=== PATIENT | male | born 1960 | race Caucasian/White ===

== ENCOUNTER → 2016-05-26 | Outpatient (CLI) | payer MEDICAID ==
[~2016-05-26] MED LIST: ALBUTEROL-200 PUFFS/ IH; AMOXICOT500 M1 PO; ASPIRIN 81MG TA81 MG PO; AZELASTINE137 MCG/SP; AZITHROMYCIN250 MG PO; CIPROFLOXACIN500 MG PO; EFFIENT10 M2 PO; FLONASE 50 MCG16 GM; HCTZ/LISINOPRIL1 TA3 PO; LIPITOR40 MG PO; LORTAB 10/3251 TAB PO; MEDROL 4MG. DOSE4 MG PO; MUCINEX1200 MG PO; NORCO 325 MG-101 TAB PO; NORFLEX100 MG PO; OMEPRAZOLE40 MG PO; PREDNISONE 20MG20 MG PO; TESSALON PERLE100 MG PO; XARELTO15 MG PO; ZYRTEC10 M3 PO; [UNRECOGNIZED DRUG - REMARK] PO
== END ==
LOC: RT 08:10
DX: R53.83 Other fatigue (principal); R53.1 Weakness; I25.10 Atherosclerotic heart disease of native coronary artery without angina pectoris; R00.1 Bradycardia, unspecified; G47.33 Obstructive sleep apnea (adult) (pediatric); R94.31 Abnormal electrocardiogram [ECG] [EKG]

== ENCOUNTER → 2016-10-14 | Outpatient (CLI) | payer MEDICAID ==
[2016-10-14 10:16] LABS: BILIRUBIN, INDIRECT 0.46 mg/dL (0-0.9)
== END ==
LOC: LAB 07:16
PROVIDERS: Internal Medicine
DX: I10 Essential (primary) hypertension (principal); E78.5 Hyperlipidemia, unspecified; G47.33 Obstructive sleep apnea (adult) (pediatric)

== ENCOUNTER 2017-03-01 08:42 | Emergency (ER) | payer MEDICAID ==
[~2017-03-01] VITALS: Ht 167.6 cm; Wt 65.8 kg
[2017-03-01 08:53] VITALS: BP 136/94
[2017-03-01] MEDS ORDERED: AVPAK AZITHROM250 MG PO (08:58)
--- NOTE | 2017-03-01 08:59 | Emergency Room Report ---
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 Y Clinical Suspician of Infection? Y Mental Status: 1 - Regular (Normal Baseline) Sepsis Risk:Low Sepsis Risk Have you (or family members/close friends) recently traveled outside the [place]? N If Yes, where/when: Have you had exposure to infectious disease within the past month? TB? Other? Specify: Patient reports fever, loose stools that are nonbloody, dry cough since yesterday. No myalgias or vomiting. Taking PO well. No chest pain or SOB. Has hx tobacco use and CABG, is anticoagulated. No calf pain or claudication. ALLERGIES Coded Allergies: pseudoephedrine (IRRITABILITY 01/13/16) Home Medications Active Scripts Albuterol (Albuterol-Hfa Inhaler) 1-2 PUFFS IH Q6HP PRN bronchospasm #1 INH Prov: 01/13/16 Methylprednisolone (Medrol Dose James) 4 MG PO UD #1 JAMES Prov: 01/13/16 HYDROCODONE/ACETAMINOPHEN (Lortab 10-325 MG Tablet) 1 TAB PO Q4HP PRN pain #20 TAB Prov: 01/13/16 Reported Medications Omeprazole (Omeprazole 40MG) 40 MG PO DAILY Rivaroxaban (Xarelto) 15 MG PO BID Prasugrel HCl (Effient) 10 MG PO DAILY ASPIRIN (Aspirin) 81 MG PO DAILY Atorvastatin Calcium (Atorvastatin) 40 MG PO DAILY History Medical History General CAD? No Angina: No [place]: No Hypertension? No Hyperlipidemia? No CHF? No DVT? No PE? No COPD? No Asthma? No Anemia? No GERD? No Gastric ulcers? No GI Bleed? No Hernia? No Thyroid Problems? No Hypothyroidism? No CVA? No Seizures? No Diabetes? No Insulin Dependent: No Insulin Pump: No Home FSBS? No Renal Insuffiency? No End Stage Renal Disease? No UTI? No Stones? No BPH? No GB Disease: No Nephritic Syndrome? No Asplenia? No Hepatitis? No Sickle Cell Disease? No Arthritis? No Migraines? No Cataracts? No Glaucoma? No MRSA? No HIV? No TB? No Anxiety? No Depression? No Cancer? Yes Site: BLADDER CANCER More? Yes Additional hx: STENTS PLACED 12/26/15 Immunization Hx DT/Tetanus 5-10 Years Ago Flu Refused Pneumonia Refuses Surgical Hx Previous Surgery?Y VASECTOMY T& A BLADDER CANCER INDEX FINGER LEFT AMPUTA. Family History Family Hx CAD No Social History Smoking Hx Smoker: Current Every Day Smoker Tobacco: Yes Type Cigarettes Packs/day < 1 Pack Alcohol Alcohol: No Review of Systems All Other Systems Reviewed and Negative Constitutional see HPI Physical Exam Vital Signs Vital Signs Date Time Temp Pulse Resp B/P Pulse O2 O2 Flow FiO2 Ox Delivery Rate 03/01 0853 61 20 136/94 98 03/01 0848 98.4 61 20 98 General Appearance normal appearance (coughing but in NAD), WD/WN, no apparent distress Eye Exam - bilateral eye normal exam, bilateral eye PERRL, bilateral eye EOMI Neck normal inspection, non-tender, supple, full range of motion Respiratory Status Yes: trachea midline, chest symmetrical, non tender chest, non productive cough. No: respiratory distress, tender on palpation, use of accessory muscles, pain on inspiration, pain on expiration, productive cough. Lung Sounds bilateral: normal breath sounds, lungs clear (coughing). Cardiovascular normal exam, regular rate/rhythm, no peripheral edema, no gallop, no JVD, no murmur, no rub, normal peripheral pulses Gastrointestinal normal bowel sounds, normal exam, non tender, soft, no organomegaly, no pulsatile mass, no guarding, no rebound Extremities non-tender, normal range of motion, normal inspection, normal capillary refill, no calf tenderness, no pedal edema Strength 5 Upper Ext (L), 5 Upper Ext (R), 5 Lower Ext (L), 5 Lower Ext (R) Neurologic alert, normal exam, no motor/sensory deficits, oriented x 3 ( ambulatory; clear speech) Glascow Coma Scale Glascow Coma Scale Response Value EYE response: 4 Spontaneously 4 MOTOR response: 6 OBEYS 6 VERBAL response: 5 Oriented & Converses 5 Total 15 Skin intact, normal color (good turgor), warm/dry Medical Decision Making LABS/Meds/Orders Pt receiving controlled substance in ED? No Results/Orders Current Medication Orders Sig/Eliud Start time Last Medication Dose Route Stop Time Status Admin Acetaminophen 1,000 MG ONCE ONE 03/01 900 AC 03/01 PO 03/01 901 0856 Acetaminophen 0 .STK-MED ONE 03/01 856 DC PO Departure Departure Time of Disposition 855 Disposition DC Home or Self Care(routine) Clinical Impression Primary Impression: Cough Condition STABLE Referrals Chepe SKAGGS,Subhash Wagner Patient Instructions Cough Additional Instructions Zithromax, see Eugonda in two to three days to recheck lungs, stay fluid hydrated with Gatorade while you still have loose stools. You stated you have medication for nausea at home; take this as needed as originally prescribed. Discharge Counseling Counseled pt/family regarding diagnosis, medications/RX, home care, follow up needs Prescriptions Current Visit Scripts Azithromycin (Avpak Azithromycin) 250 MG PO DAILY #6 TAB one Zpack as directed for five days ED Critical Care Critical Care No at 0858
--- OUTSIDE RECORDS SUMMARY | 2017-03-06 01:46 | External Medical Summary Rpt | CCD ---
Author Author , RIO Organization RIO Address Unknown Phone [email or web address] Care Team Providers Care Dental Chairside Assistant Name Role Phone A Violet MOMIN MD PSC, Gilberto Unavailable Unavailable Violet MOMIN MD PSC ALFARIS MOH, ALFARIS Unavailable Unavailable MOH ALFARIS MOH, ALFARIS Unavailable Unavailable MOH BEINEKE VALENTE, BEINEKE Unavailable Unavailable VALENTE PK L, PK L Unavailable Unavailable ORO, ORO Unavailable Unavailable ORO ALL, ORO ALL Unavailable Unavailable KINGSLEY CATARINO, KINGSLEY CATARINO Unavailable Unavailable KINGSLEY CATARINO, KINGSLEY CATARINO Unavailable Unavailable [facility] Unavailable [facility]available [facility], [facility] Unavailable Unavailable [facility], [facility] JIE COOK, Unavailable Unavailable JIE COOK KAMARI MANAN, Unavailable Unavailable KAMARI MANAN FAUGHN COOK, FAUGHN Unavailable Unavailable COOK FIELD AMB, FIELD AMB Unavailable Unavailable FIELD AMB, FIELD AMB Unavailable Unavailable FRYMAN EUG, FRYMAN Unavailable Unavailable EUG BLAYNE VAN, BLAYNE Unavailable Unavailable VAN BLAYNE VAN, BLAYNE Unavailable Unavailable [facility] Unavailable Unavailable HOSPITAL, [facility], Unavailable Unavailable [facility] PERRYCASIMIRO MAGANA, VICKY MAGANA Unavailable Unavailable GARNETT TRA, GARNETT TRA Unavailable Unavailable [facility] KOTTER ALTON, KOTTER Unavailable Unavailable [facility], [facility] SHERI JR DWI, SHERI Unavailable Unavailable JR DWI SERRANO SVETLANA, SERRANO Unavailable Unavailable SVETLANA DARIA GRE, Unavailable Unavailable DARIA GRE DARIA GRE, Unavailable Unavailable DARIA GRE MONGIARDO FRA, Unavailable Unavailable MONGIARDO FRA MONGIARDO FRA, Unavailable Unavailable MONGIARDO FRA [facility]available [facility], [facility], Unavailable Unavailable [facility], Unavailable Unavailable [facility] FINESSE, FINESSE Unavailable Unavailable FINESSE TOD, FINESSE TOD Unavailable Unavailable ARUN ESME, ARUN ESME Unavailable Unavailable ARUN ESME, ARUN ESME Unavailable Unavailable SCIFRES, SCIFRES Unavailable Unavailable SCIFRES, SCIFRES Unavailable Unavailable MICHELLE, MICHELLE Unavailable Unavailable MICHELLE MAT, Unavailable Unavailable MICHELLE MAT ROSALINA ROMANO Unavailable Unavailable ROSALINA SHE, Unavailable Unavailable ROSALINA SHE STONE, STONE Unavailable Unavailable TAY CROSS Unavailable Unavailable TAY CROSS Unavailable Unavailable Purpose Continuity of Care Document - 08-04-2011 through 2016 Problems Code Diagnosis DOS Provider Status [id number] HYPERTENSIV 01-14-2017 SCIF[facility] E RETINOPATHY BILATERAL [id number] NONEXU 01-08-2017 [facility] AGE-REL MACULAR DEG LT EYE INTRMD DRY STG [id number] EXUDATIVE 01-08-2017 [facility] AGE-RELATED MAC DEG RT EYE INACTV CNV E785 HYPERLIPIDE 11-10-2016 [facility] KEVIN PHYSICIANS UNSPECIFIED GROUP G4733 OBSTRUCTIVE 11-10-2016 [place] [facility] APNEA ADULT INC PEDIATRIC I10 ESSENTIAL 11-10-2016 [place] [facility] PRIMARY [facility] HYPERTENSIO INC N I119 HYPERTENSIV 11-10-2016 [facility] E HEART PHYSICIANS DISEASE GROUP WITHOUT HEART FAILURE I2510 ASHD CHER-AE HEIGHTS 11-10-2016 [facility] 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 K219 GASTRO-ESOP 11-10-2016 [facility] H REFLUX PHYSICIANS DISEASE GROUP WITHOUT ESOPHAGITIS K449 DIAPHRAGMAT 11-10-2016 [facility] IC HERNIA PHYSICIANS W/O GROUP OBSTRUCTION OR GANGRENE Z955 PRESENCE OF 11-10-2016 [facility] CORONARY PHYSICIANS ANGIOPLASTY GROUP IMPLANT & GRAFT [id number] NONEXUD 10-09-2016 [facility] AGE-REL MAC DEGEN TRU INTERMED DRY STAGE H524 PRESBYOPIA 09-11-2016 SC[facility] R0602 SHORTNESS 07-31-2016 [facility] INC R079 CHEST PAIN 07-31-2016 [facility] R4702 DYSPHASIA 07-31-2016 [facility] Z720 TOBACCO USE 07-28-2016 [facility] R0681 APNEA NOT 07-22-2016 SP ELSEWHERE [facility] CLASSIFIED INC K635 POLYP OF 07-09-2016 [facility] K921 MELENA 07-09-2016 [facility] K625 HEMORRHAGE 06-24-2016 [facility] OF ANUS AND PHYSICIANS RECTUM GROUP C69941 PERSONAL 06-24-2016 [facility] HISTORY OF PHYSICIANS COLONIC GROUP POLYPS R001 BRADYCARDIA 06-12-2016 [facility] PHYSICIANS UNSPECIFIED GROUP J0100 ACUTE 05-26-2016 [facility] MAXILLARY PHYSICIANS SINUSITIS GROUP UNSPECIFIED R531 WEAKNESS 05-26-2016 [facility] INC R5383 OTHER 05-26-2016 [facility] FAT[facility]UE [facility] INC R9431 ABNORMAL 05-26-2016 [facility] ELECTROCARD [facility] IOGRAM INC R55 SYNCOPE AND 05-19-2016 [facility] COLLAPSE PHYSICIANS GROUP I208 OTHER FORMS 04-29-2016 [facility] OF ANGINA PHYSICIANS PECTORIS GROUP C68286 ASHD [place]IGHT[place] 04-29-2016 [facility] COR ART PHYSICIANS W/OTH FORMS GROUP ANGINA PECTORIS I209 ANGINA 04-24-2016 [facility]ICAL UNSPECIFIED IMAGING ASS I340 NONRHEUMATI 04-24-2016 [facility] INSUFFICIEN CY J209 ACUTE 01-28-2016 [facility] BRONCHITIS PHYSICIANS UNSPECIFIED GROUP J329 CHRONIC 01-18-2016 [facility] SINUSITIS PHYSICIANS UNSPECIFIED GROUP J40 BRONCHITIS 01-13-2016 [facility], SPECIFIED PLLC ACUTE OR CHRONIC K828 OTHER 01-13-2016 [place] SPECIFIED MEDICAL DISEASES OF IMAGING ASS GALLBLADDER K922 GASTROINTES 01-13-2016 [facility] KEARNSAL PHYSICIANS, HEMORRHAGE PLLC UNSPECIFIED R05 COUGH 01-13-2016 [facility] Z8551 PERSONAL 01-13-2016 [facility] HISTORY [facility]ICAL MALIGNANT IMAGING ASS NEOPLASM OF BLADDER M32159 PAIN IN 01-02-2016 [facility] RIGHT ARM MEDICAL IM[facility]ING ASS B88326 [facility] CHER-AE HEIGHTS 12-24-2015 SP COR ARTREY [facility] W/UNS INC ANGINA PECTORIS R9439 ABNORMAL 12-24-2015 SP RESULT OTH [facility] CARDIOVASCU INC LR FUNCTION STUDY H6690 OTITIS 11-13-2015 [facility] MEDIA PHYSICIANS UNSPECIFIED GROUP UNSPECIFIED EAR G4730 SLEEP APNEA 09-18-2015 [facility] PHYSICIANS UNSPECIFIED GROUP J3489 OTHER 09-18-2015 [facility] SPECIFIED PHYSICIANS DISORDERS GROUP NOSE AND NASAL SINUSES M5126 OTH 05-09-2015 [facility] [place] [facility] RAL DISC [facility] PLC DISPLACEMEN T LUMBAR RGN M549 DORSALGIA 04-23-2015 [facility] UNSPECIFIED [facility] INC Z69282 PAIN IN LEG 04-23-2015 [facility] UNSPECIFIED INC V19239 PAIN IN 04-16-2015 SP LEFT [facility] M545 LOW BACK 04-01-2015 [facility] [place] PAIN [facility] S PLC [id number] OTH FX 1ST 04-01-2015 [facility] [place] LUMB VERT [facility] SUBSEQUENT S PLC ENC FX RTN HLNG C679 MALIGNANT 03-22-2015 SP NEOPLASM OF [facility] BLADDER INC UNSPECIFIED E041 NONTOXIC 03-22-2015 SP SINGLE [facility] THYROID INC NODULE A80812 PAIN IN 03-21-2015 [facility] RIGHT LEG [facility]ICAL [facility] R600 LOCALIZED 03-21-2015 [place] [facility] EDEMA [facility] 8054 CLOS FX 01-17-2015 [facility] [place] LUMB [facility] VERTEBRA S PLC W/O MENTION SP CORD INJURY 9895 TOXIC 12-13-2014 [facility] EFFECT OF PHYSICIANS, VENOM [facility] MONET[facility] V1582 PERS HX 12-13-2014 SP TOBACCO USE [facility] PRESENTING INC [facility] 67328 BORDERLINE 12-06-2014 [facility] GLAUC OPEN GRE ANGLE BL FINDINGS LOW RSK 81957 OTHER 12-06-2014 [facility] VISUAL GRE DISTORTIONS AND ENTOPTIC PHENOMENA 03811 OTHER 12-06-2014 [facility] VITREOUS GRE OPACITIES 4019 UNSPECIFIED 11-20-2014 SP ESSENTIAL [facility] HYPERTENSIO INC N 29831 OTHER 11-20-2014 SP SPECIFIED [facility] CARDIAC INC DYSRHYTHMIA S 78750 CHEST PAIN 11-20-2014 [facility] UNSPECIFIED [facility] INC 7242 LUMBAGO 11-12-2014 [facility] [place] [facility] 77202 HEMATURIA 10-11-2014 [facility] 7245 UNSPECIFIED 10-09-2014 [facility] BACK[facility]HE [facility] 0093 DIARRHEA OF 09-24-2014 [facility] PRESUMED PHYSICIANS INFECTIOUS GROUP ORIGIN 2113 BENIGN 09-24-2014 [facility] NEOPLASM OF PHYSICIANS COLON GROUP 5781 BLOOD IN 09-24-2014 [facility] STOOL PHYSICIANS GROUP 05412 ABDOMINAL 09-24-2014 [facility] PAIN OTHER PHYSICIANS SPECIFIED GROUP SITE 45764 DIVERTICULO 09-14-2014 [facility] SIS OF PHYSICIANS COLON GROUP 69899 DIARRHEA 09-14-2014 [facility] PHYSICIANS GROUP 68138 ABDOMINAL 09-14-2014 [facility] PAIN, PHYSICIANS UNSPECIFIED GROUP SITE 4619 ACUTE 08-27-2014 [facility] SINUSITIS, PHYSICIANS UNSPECIFIED GROUP 412 OLD 07-19-2014 [facility] MYOCARDIAL [facility] INFARCTION CONSULTANTS O 00418 ATRIAL 07-19-2014 [facility] FIBRILLATIO LAR N CONSULTANTS O 02799 NONSPECIFIC 07-19-2014 [facility] ABNORMAL LAR ELECTROCARD CONSULTANTS IOGRAM O 5693 HEMORRHAGE 07-03-2014 Gilberto MOMIN OF RECTUM PSC AND ANUS 02441 UNS SHIGA 06-28-2014 SP TOXIN-PRODU [facility] CING E COLI INC INF CLASS ELSW 47352 OBSTRUCTIVE 03-05-2014 [place] [facility] APNEA INC 460 ACUTE 01-06-2014 BLAYNE VAN NASOPHARYNG ITIS 4739 UNSPECIFIED 01-05-2014 SP SINUSITIS [facility] INC 26643 ACOUSTIC 12-01-2013 MONGIARDO TRAUMA TO FRA EAR 55698 UNSPECIFIED 12-01-2013 [facility] TINNITUS FRA 3899 UNSPECIFIED 12-01-2013 [facility] HEARING FRA LOSS 7336 TIETZES 11-09-2013 [facility] DISEASE 30688 PAINFUL 11-06-2013 [facility] MOH RESPIRATION 27024 ESOPHAGEAL 11-02-2013 [facility] REFLUX 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 4659 ACUTE URIS 10-13-2013 ARUN ESME OF UNSPECIFIED SITE 496 CHRONIC 10-13-2013 ARUN ESME AIRWAY OBSTRUCTION NEC 3670 HYPERMETROP 10-07-2013 [facility] IA GRE 7840 HEADACHE 07-05-2013 [facility] 32507 OTHER 07-03-2013 [facility] AM[facility] MALAISE AND FATIGUE 4660 ACUTE 06-03-2013 [facility] TORIBIO BRONCHITIS Medications Na ND Rx Da Fi Fi Am Da Di Ph RX Ph St me C No te ll ll ou ys ag ar # ys at rm s nt no ma ic us Or Da si cy ia de te s n re d CL 13 08 09 30 30 00 CL Ac OP 66 -2 -2 .0 00 IN ti ID 80 2- 2- 00 00 IC ve OG 14 20 20 43 RE 10 17 17 18 PH L 5 64 AR 75 MA CY MG TA BL ET LO 00 08 09 30 30 00 CL Ac SA 78 -2 -2 .0 00 IN ti RT 15 2- 2- 00 00 IC ve AN 20 20 20 43 -H 69 [address] 2 57 AR Z MA 50 CY -1 2. 5 MG TA B OM 00 08 09 30 30 00 CL Ac EP 78 -2 -2 .0 00 IN ti RA 12 2- 2- 00 00 IC ve ZO 23 20 20 43 LE 41 17 17 18 PH [address] MA CY 40 MG CA PS UL E SI 16 08 09 30 30 00 CL Ac MV 72 -2 -2 .0 00 IN ti 90 2- 2- 00 00 IC ve TA 00 20 20 43 TI 41 17 17 44 PH N 5 21 AR 10 MA CY MG TA BL ET CL 13 07 08 30 30 00 CL Ac OP 66 -1 -1 .0 00 IN ti ID 80 9- 1- 00 00 IC ve OG 14 20 20 40 RE 10 17 17 87 PH L 5 39 AR 75 MA CY MG TA BL ET OM 60 07 08 30 30 00 CL Ac EP 50 -1 -1 .0 00 IN ti RA 50 9- 1- 00 00 IC ve ZO 14 20 20 43 LE 60 17 17 18 PH [address] MA CY 40 MG CA PS UL E SI 16 07 08 30 30 00 CL Ac MV 72 -1 -1 .0 00 IN ti 90 9- - 00 IC ve TA 00 20 20 43 TI 41 17 17 44 PH N 5 21 AR 10 MA CY MG TA BL ET LO 00 07 08 30 30 00 CL Ac SA 78 -1 -1 .0 00 IN ti RT 15 9- 00 IC ve AN 20 20 20 43 -H 69 [address] 2 57 AR Z MA 50 CY -1 2. 5 MG TA B SI 16 06 07 30 30 00 CL Ac MV 72 -2 -1 .0 00 IN ti 90 0- 4- 00 00 IC ve TA 00 20 20 43 TI 41 17 17 44 PH N 5 21 AR 10 MA CY MG TA BL ET CL 13 06 07 30 30 00 CL Ac OP 66 -2 -1 .0 00 IN ti ID 80 0- 4- 00 00 IC ve OG 14 20 20 40 RE 10 17 17 87 PH L 5 39 AR 75 MA CY MG TA BL ET OM 55 06 07 30 30 00 CL Ac EP 11 -2 -1 .0 00 IN ti RA 10 0- 4- 00 00 IC ve ZO 64 20 20 43 LE 50 17 17 18 PH [address] MA CY 40 MG CA PS UL E LO 00 06 07 30 30 00 CL Ac SA 78 -2 -1 .0 00 IN ti RT 15 0- 4- 00 00 IC ve AN 20 20 20 43 -H 69 [address] 2 57 AR Z MA 50 CY -1 2. 5 MG TA B FL 50 06 07 16 30 00 CL Ac UT 38 -2 -1 .0 00 IN ti IC 30 1- 4- 00 00 IC ve 70 20 20 43 ON 01 17 17 45 PH E 6 97 AR ID MA OP CY 50 MC G SP RA Y CL 13 05 06 30 30 00 CL Ac OP 66 -1 -2 .0 00 IN ti ID 80 8- 3- 00 00 IC ve OG 14 20 20 40 RE 10 17 17 87 PH L 5 39 AR 75 MA CY MG TA BL ET PA 65 05 06 30 30 00 CL Ac NT 86 -1 -2 .0 00 IN ti OP 20 8- 3- 00 00 IC ve RA 56 20 20 41 ZO 09 17 17 97 PH LE 0 12 AR MA SO CY D DR 40 MG TA B OM 60 05 06 30 30 00 CL Ac EP 50 -2 -1 .0 00 IN ti RA 50 3- 6- 00 00 IC ve ZO 14 20 20 43 LE 60 17 17 18 PH [address] MA CY 40 MG CA PS UL E ON 67 05 06 10 5 00 CL Ac DA 87 -2 -1 .0 00 IN ti NS 70 3- 6- 00 00 IC ve ET 17 20 20 43 RO 03 17 17 18 PH N 0 65 AR HC MA L CY 8 MG TA BL ET LO 00 05 06 30 30 00 CL Ac SA 78 -2 -1 .0 00 IN ti RT 15 3- 6- 00 00 IC ve AN 20 20 20 43 -H 69 [address] 2 62 AR Z MA 50 CY -1 2. 5 MG TA B CL 13 04 05 30 30 00 CL Ac OP 66 -1 -1 .0 00 IN ti ID 80 9- 2- 00 00 IC ve OG 14 20 20 40 RE 10 17 17 87 PH L 5 39 AR 75 MA CY MG TA BL ET PA 65 04 05 30 30 00 CL Ac NT 16 -1 -1 .0 00 IN ti OP 20 9- 2- 00 00 IC ve RA 63 20 20 41 ZO 70 17 17 97 PH LE 9 12 AR MA SO CY D DR 40 MG TA B CL 13 03 04 30 30 00 CL Ac OP 66 -2 -1 .0 00 IN ti ID 80 1- 4- 00 00 IC ve OG 14 20 20 40 RE 10 17 17 87 PH L 5 39 AR 75 MA CY MG TA BL ET PA 65 03 04 30 30 00 CL Ac NT 16 -2 -1 .0 00 IN ti OP 20 1- 4- 00 00 IC ve RA 63 20 20 41 ZO 70 17 17 97 PH LE 9 12 AR MA SO CY D DR 40 MG TA B PA 66 02 03 30 30 00 CL Ac NT 99 -1 -1 .0 00 IN ti OP 30 4- 0- 00 00 IC ve RA 06 20 20 41 ZO 88 17 17 97 PH LE 5 12 AR MA SO CY D DR 40 MG TA B CL 13 02 03 30 30 00 CL Ac OP 66 -1 -1 .0 00 IN ti ID 80 4- 0- 00 00 IC ve OG 14 20 20 40 RE 10 17 17 87 PH L 5 39 AR 75 MA CY MG TA BL ET GA 43 02 02 40 1 00 CL Ac 38 -0 -2 00 00 IN ti LY 60 1- 4- .0 00 IC ve TE 09 20 20 00 42 -G 01 17 17 09 PH 9 15 AR SO MA VICTORINO CY TI ON PA 65 01 02 30 30 00 CL Ac NT 16 -2 -1 .0 00 IN ti OP 20 0- 7- 00 00 IC ve RA 63 20 20 41 ZO 70 17 17 97 PH LE 9 12 AR MA SO CY D DR 40 MG TA B OM 60 01 02 30 30 00 CL Ac EP 50 -1 -1 .0 00 IN ti RA 50 7- 0- 00 00 IC ve ZO 14 20 20 41 LE 60 17 17 57 PH [address] MA CY 40 MG CA PS UL E CL 13 01 02 30 30 00 CL Ac OP 66 -1 -1 .0 00 IN ti ID 80 7- 0- 00 00 IC ve OG 14 20 20 40 RE 10 17 17 87 PH L 5 39 AR 75 MA CY MG TA BL ET AT 60 01 02 30 30 00 CL Ac OR 50 -1 -1 .0 00 IN ti VA 52 7- 0- [address] 58 20 20 40 AT 00 17 17 87 PH IN 9 40 AR MA 40 CY MG TA BL ET CE 67 01 01 20 10 00 CL Ac FU 87 -0 -2 .0 00 IN ti RO 70 3- 7- 00 00 IC ve XI 21 20 20 41 ME 62 17 17 79 PH 0 40 AR AX MA ET CY IL 50 0 MG TA B ID 00 01 01 10 5 00 CL Ac ED 05 -0 -2 .0 00 IN ti NI 40 3- 7- 00 00 IC ve SO 01 20 20 41 NE 82 17 17 79 PH 9 41 AR 20 MA CY MG TA BL ET AT 60 12 01 30 30 00 CL Ac OR 50 -2 -2 .0 00 IN ti VA 52 0- 0- [address] 58 20 20 40 AT 00 16 17 87 PH IN 8 40 AR MA 40 CY MG TA BL ET CL 13 12 01 30 30 00 CL Ac OP 66 -2 -2 .0 00 IN ti ID 80 0- 0- 00 00 IC ve OG 14 20 20 40 RE 10 16 17 87 PH L 5 39 AR 75 MA CY MG TA BL ET OM 60 12 01 30 30 00 CL Ac EP 50 -2 -2 .0 00 IN ti RA 50 0- 0- 00 00 IC ve ZO 14 20 20 41 LE 60 16 17 57 PH [address] MA CY 40 MG CA PS UL E AM 57 12 01 20 10 00 CL Ac OX 23 -0 -1 .0 00 IN ti IC 70 8- 3- 00 00 IC ve IL 03 20 20 41 LI 10 16 17 57 PH N 5 36 AR 50 MA 0 CY MG CA PS UL E FL 00 12 01 16 30 00 CL Ac UT 05 -0 -1 .0 00 IN ti IC 43 8- 3- 00 00 IC ve 27 20 20 41 ON 09 16 17 57 PH E 9 37 AR ID MA OP CY 50 MC G SP RA Y NI 43 12 01 25 25 00 CL Ac TR 59 -0 -1 .0 00 IN ti OG 80 8- 3- 00 00 IC ve LY 43 20 20 41 CE 61 16 17 42 PH RI 1 54 AR N MA 0. CY 4 MG TA BL ET SL Results Labs Lab Lab Date Result Refere Interp Status Commen Order Detail nces retati t Range on CKMB (08-04-2011 11:40) CKMB 0.2 0.0-5.0 Normal complet 012 NG/ML ed 11:40 CPK (08-04-2011 11:40) CPK 74 U/L 26.0-17 Normal complet 012 4.0 ed 11:40 CMP (08-04-2011 11:40) LIPEMIA - Normal complet 012 ed 11:40 ICT - Normal complet 012 ed 11:40 HEM - Normal complet 012 ed 11:40 BUNCR 17.5 6.0-25. Normal complet 012 RATIO 0 ed 11:40 AG 1.7 0.8-2.0 Normal complet 012 RATIO ed 11:40 TBIL 08-03-2 0.4 0.3-1.2 Normal complet 012 MG/DL ed 11:40 AST 08-03-2 24.0 8.0-33. Normal complet 012 U/L 0 ed 11:40 ALT 08-03-2 14.0 4.0-36. Normal complet 012 U/L 0 ed 11:40 ALP 08-03-2 92.0 25.0-10 Normal complet 012 U/L 0.0 ed 11:40 ALB 08-03-2 4.6 3.4-4.8 Normal complet 012 G/DL ed 11:40 TP 08-03-2 7.30 6.40-8. Normal complet 012 G/DL 30 ed 11:40 CA 08-03-2 9.8 8.5-10. Normal complet 012 MG/DL 5 ed 11:40 GFR 08-03-2 108 >59 Normal complet 012 ML/MIN ed 11:40 CR 08-03-2 0.8 0.4-1.2 Normal complet 012 MG/DL 0 ed 11:40 BUN 08-03-2 14.0 6.0-20. Normal complet 012 MG/DL 0 ed 11:40 GL 08-03-2 96.0 74.0-10 Normal complet 012 MG/DL 6.0 ed 11:40 CO2 08-03-2 30.0 20.0-30 Normal complet 012 mEq/L .0 ed 11:40 CL 08-03-2 107.0 98.0-10 Normal complet 012 MMOL/L 7.0 ed 11:40 K 08-03-2 4.0 3.4-5.1 Normal complet 012 mEq/L ed 11:40 NA 08-03-2 144.0 136.0-1 Normal complet 012 MMOL/L 45.0 ed 11:40 Procedures Procedure DOS Code Location Performer Comment FUNDUS 41270 [facility] 7 HY W/INTERPR ETATION & REPORT ECG 49508 [facility] ROUTINE 7 [facility] ECG INC INC W/LEAST 12 LDS TRCG ONLY W/O I&R ECG 38567 [facility] ROUTINE [facility] ECG INC INC W/LEAST 12 LDS TRCG ONLY W/O I&R FLUORESCE 38195 [facility] IN ANGRPH 7 W/MULTIFR INDIRA I&R UNI/BI FUNDUS 87702 [facility] PHOTOGRAP 7 HY W/INTERPR ETATION & REPORT OPHTH 65474 [facility] MEDICAL 7 XM&EVAL COMPRE NEW PT 1/> VST RADEX 50916 [facility] ESOPHAGUS 7 MEDICAL IMAGING ASS ECG 04404 [facility] ROUTINE 7 [facility] ECG INC INC W/LEAST 12 LDS TRCG ONLY W/O I&R ECG 80933 [facility] MICHELLE ROUTINE 7 PHYSICIAN ECG S GROUP W/LEAST 12 LDS I&R ONLY POLYSOM 41653 [facility] 6/>YRS 7 [facility] SLEEP /> INC INC ADDL AYO ATTND ANES 06617 [facility] 7 ANESTH INTESTINE OF THE BLUE ENDOSCOPY DISTAL DUODENUM ECG 19022 [facility] ROUTINE 7 PHYSICIAN ECG S GROUP W/LEAST 12 LDS I&R ONLY CV STRS 89063 [facility] TST 7 [facility] XERS&/OR INC INC RX CONT ECG TRCG ONLY ECG 29396 [facility] ROUTINE 6 [facility] ECG INC INC W/LEAST 12 LDS TRCG ONLY W/O I&R COLLECTIO 16289 [facility] N VENOUS 6 [facility] [place]LOOD [place] [address] [facility] FREE 6 [facility] [place] [address] [facility] THYROID 6 [facility] STIMULATI INC INC NG HORMONE TSH CATH PLMT 53964 [facility] MIC[facility] L HRT & 6 PHYSICIAN ARTS S GROUP W/NJX & ANGIO IMG S&I BASIC 28450 [facility] METABOLIC 6 [facility] PANEL INC INC CALCIUM TOTAL RADIOLOGI 30609 [place] [facility] C EXAM 6 MEDICAL CHEST 2 IMAGING VIEWS ASS FRONTAL&L ATERAL ECHO 81993 [place] [facility] TTHRC R-T 6 MEDICAL [place] 2D SERV W/WOM-MOD FOUNDATIO E COMPL N SPEC&COLR D COLLECTIO 89475 SP [facility] VENOUS 6 [facility] BLOOD INC INC VENIPUNCT URE INJECTION J1100 [facility] FRYMAN 6 PHYSICIAN EUG DEXAMETHO S GROUP SONE SODIUM PHOSPHATE 1 MG THERAPEUT 26160 [facility] FR[facility]MAN IC 6 PHYSICIAN EUG PROPHYLAC S GROUP TIC/DX INJECTION SUBQ/IM THER 80565 [facility] PROPH/DX 6 [facility] NJX IV INC INC PUSH SINGLE/1S T SBST/[place] [address] BREANNA BENITES ABDOMEN & 6 MEDICAL MANAN PELVIS IMAGING W/O ASS CONTRAST MATERIAL THROMBOPL 92099 [facility] ASTIN 6 [facility] TIME INC INC PARTIAL PLASMA/WH OLE BLOOD BLOOD 22606 [facility] TYPING 6 [facility] SEROLOGIC INC INC RH (D) ANTIBODY 32388 [facility] SCREEN 6 [facility] RBC EACH INC INC SERUM TECHNIQUE BLOOD 19597 [facility] TYPING 6 [facility] SEROLOGIC INC INC ABO PROTHROMB 69142 [facility] IN TIME 6 [facility] INC INC URNLS DIP 11369 [facility] 6 [facility] STICK/TAB INC INC LET REAGENT AUTO MICROSCOP Y BLOOD 44476 [facility] OCCULT 6 [facility] PEROXIDAS INC INC E ACTV QUAL FECES 1-3 SPEC BLOOD 72987 [facility] COUNT 6 [facility] COMPLETE INC INC AUTO&AUTO DIFRNTL WBC LIPID 72938 [facility] PANEL 6 [facility] INC INC RADIOLOGI 37581 [facility] CAZAR[facility]I C EXAM 6 MEDICAL MANAN CHEST 2 IMAGING VIEWS ASS FRONTAL&L ATERAL PRESSURIZ 85805 [facility] ED/NONPRE 6 [facility] SSURIZED INC INC INHALATIO N TREATMENT CULTURE 24478 [facility] BACTERIAL 6 [facility] BLOOD INC INC AEROBIC W/ID ISOLATES COLLECTIO 29215 [facility] N VENOUS 6 [facility] BLOOD INC INC VENIPUNCT URE COMPREHEN 98618 [facility] SIVE 6 [facility] METABOLIC INC INC PANEL DUP-SCAN 29202 [place] [facility] ALL XTR VEINS 6 MEDICAL IMAGING UNILATERA ASS L/LIMITED STUDY PRQ 83884 [facility] TRLUML 6 PHYSICIAN MAT CORONARY S GROUP ANGIOPLAS TY ONE ART/BRANC H PRQ [address]153 [facility] TRLUML 6 PHYSICIAN MAT CORONARY S GROUP STENT W/ANGIO ONE ART/BRNCH BLOOD 60287 [facility] COUNT 6 [facility] COMPLETE INC INC AUTO&AUTO DIFRNTL WBC CATH PLMT 66313 [facility] L HRT & 6 [facility] ARTS INC INC W/NJX & ANGIO IMG S&I BASIC 38945 [facility] METABOLIC 6 [facility] PANEL INC INC CALCIUM TOTAL MYOCARDIA 10465 [facility] MICHELLE L SPECT 6 PHYSICIAN MAT MULTIPLE S GROUP STUDIES BLOOD 69857 [facility] COUNT 6 [facility] COMPLETE INC INC AUTO&AUTO DIFRNTL WBC LIPID 15288 [facility] PANEL 6 [facility] INC INC COMPREHEN 09509 [facility] SIVE 6 [facility] [place] [address] [facility] THYROID 6 [facility] STIMULATI [place] [address] [facility] THYROXINE 6 [facility] TOTAL INC INC ECG 03180 [facility] ROUTINE 6 [facility] ECG INC INC W/LEAST 12 LDS TRCG ONLY W/O I&R XTRNL ECG 23714 [facility] & 48 HR 5 [facility] RECORDING INC INC EXTERNAL 10919 [facility] ECG 5 [facility] SCANNING INC INC ANALYSIS REPORT XTRNL ECG 79252 SP [facility] JR 5 [facility] S RHYTHM P W/I&R UP TO 48 HRS ECG 08291 [facility] ROUTINE 5 [facility] ECG INC INC W/LEAST 12 LDS TRCG ONLY W/O I&R E-STIM G0283 [facility] 1/> AREAS 5 [facility] OTH THAN INC INC WND CARE PART TX PLAN APPL 82812 [facility] MODALITY 5 [facility] 1/> AREAS INC INC ULTRASOUN D EA 15 MIN MANUAL 55196 [facility] THERAPY 5 [facility] TQS 1/> INC INC REGIONS EACH 15 MINUTES THERAPEUT 79165 [facility] IC PX 1/> 5 [facility] AREAS INC INC EACH 15 MIN EXERCISES APPLICATI 44643 [facility] ON 5 [facility] MODALITY INC INC 1/> AREAS HOT/COLD PACKS APPLICATI 95800 [facility] ON 5 [facility] MODALITY INC INC 1/> AREAS HOT/COLD PACKS THERAPEUT 97647 [facility] IC PX 1/> 5 [facility] AREAS INC INC EACH 15 MIN EXERCISES E-STIM G0283 [facility] 1/> AREAS 5 [facility] OTH THAN INC INC WND CARE PART TX PLAN E-STIM G0283 [facility] 1/> AREAS 5 [facility] OTH THAN INC INC WND CARE PART TX PLAN THERAPEUT 65318 [facility] IC PX 1/> 5 [facility] AREAS INC INC EACH 15 MIN EXERCISES APPLICATI 61074 [facility] ON 5 [facility] MODALITY INC INC 1/> AREAS HOT/COLD PACKS MANUAL 19013 [facility] THERAPY 5 [facility] TQS 1/> INC INC REGIONS EACH 15 MINUTES MANUAL 53200 [facility] THERAPY 5 [facility] TQS 1/> INC INC REGIONS EACH 15 MINUTES APPLICATI 64297 [facility] MODALITY INC INC 1/> AREAS HOT/COLD PACKS E-STIM G0283 SP [facility] 1/> AREAS [facility] OTH THAN INC INC WND CARE PART TX PLAN E-STIM G0283 SP SP 1/> AREAS 5 [facility] OTH THAN INC INC WND CARE PART TX PLAN APPLICATI 98422 SP MALONEON ON 5 [facility] MODALITY INC INC 1/> AREAS HOT/COLD PACKS APPL 87532 SP [facility] MODALITY 5 [facility] 1/> AREAS INC INC TRACTION MECHANICA L MANUAL 53879 SP SP THERAPY 5 [facility] TQS 1/> INC INC REGIONS EACH 15 MINUTES APPLICATI 93962 SP SP ON 5 [facility] MODALITY INC INC 1/> AREAS HOT/COLD PACKS THERAPEUT 04648 SP SP IC PX 1/> 5 [facility] AREAS INC INC EACH 15 MIN EXERCISES E-STIM G0283 SP [facility] 1/> AREAS 5 [facility] OTH THAN INC INC WND CARE PART TX PLAN PHYSICAL 19650 SP SP THERAPY 5 [facility] EVALUATIO INC INC N RADEX 07052 [facility] SPINE 5 [place] [facility] ORTHOPAED AL 2/3 [facility] VIEWS THERAPEUT 94996 SP JOLLEY IC 5 [facility] TIC/DX INJECTION SUBQ/IM INJECTION J1885 SP JOLLEY 5 [facility] [place] INE PER 15 MG COLLECTIO 68124 SP [place] N VENOUS 5 [facility] [place]LO[place] [address] SP SN[facility] THYROID 5 [facility] STIMULATI [place] [address] SP [place] FREE 5 [facility] THYROXINE INC INC COMPREHEN 74999 SP [facility] SIVE 5 [facility] METABOLIC INC INC PANEL LIPID 03061 [facility] PANEL 5 [facility] INC INC BLOOD 93036 [facility] COUNT 5 [facility] COMPLETE INC INC AUTO&AUTO DIFRNTL WBC DUP-SCAN 25136 SP [facility] XTR VEINS 5 [facility] INC INC UNILATERA L/LIMITED STUDY RADEX 50058 SP [place] SPINE 5 [facility] LUMBOSACR INC INC AL MINIMUM 4 VIEWS RADEX 30028 [facility] SP[place] 5 [place] ORTHOPAED AL 2/3 [facility] VIEWS RADEX 96339 [facility] SPINE 5 [place] ORTHOPAED AL 2/3 [facility] VIEWS OPHTH 68399 [facility] 5 GRE GRE XM&EVAL COMPRHNSV ESTAB PT 1/> VISUAL 04324 [facility] XM 5 GRE GRE UNI/BI W/INTERP EXTENDED EXAM ECG 89522 [facility] ROUTINE 5 [facility] ECG INC INC W/LEAST 12 LDS TRCG ONLY W/O I&R COLLECTIO 60114 SP [place] N VENOUS 5 [facility] BLOOD INC INC VENIPUNCT URE BASIC 06594 SP [facility] METABOLIC 5 [facility] PANEL INC INC CALCIUM TOTAL MRI 87539 [facility] SPINAL 5 [place] CANAL ORTHOPAED LUMBAR ICS PLC W/O CONTRAST MATERIAL ECG 89105 SP [facility] ROUTINE 5 [facility] ECG INC INC W/LEAST 12 LDS TRCG ONLY W/O I&R ECG 15308 SP [place] ROUTINE 5 [facility] ECG INC INC W/LEAST 12 LDS TRCG ONLY W/O I&[place] [address] [employer] [facility]ST PROSTATE 5 DIAGNOSTI DIAGNOSTI SPECIFIC CS CS ANTIGEN TOTAL URINLS 57727 A C FIELD AMB DIP 5 LILIANE SKAGGS STICK/TAB PSC LET REAGNT NON-AUTO MICRSCPY RADEX 40310 [place] [facility] SPINE 5 [facility] IMAGING 2 VIEWS ASS RADEX 51890 [place] [facility] LUMBOSACR IMAGING AL 2/[place] [address] [facility] SVETLANA PATHOLOGY GROSS&VAN ROSCOPIC EXAM COLONOSCO 59231 [facility] FINESSE TOD PY 5 PHYSICIAN W/BIOPSY S GROUP SINGLE/MU LTIPLE ANES 56843 [facility] LOWER 5 ANESTH SHE INTESTINE OF THE BLUE ENDOSCOPY DISTAL DUODENUM CV STRS 97607 SPANT [facility] TST 5 [facility] XERS&/OR INC INC RX CONT ECG TRCG ONLY ECHO 63452 SP [place] TTHRC R-T 5 [facility] 2D INC INC W/WOM-MOD E COMPL SPEC&COLR D CV STRS 82871 CARDIOVAS MICHELLE TST 5 CULAR MAT XERS&/OR CONSULTAN RX CONT TS O ECG I&R ONLY ECG 82400 SP [facility] ROUTINE 5 [facility] ECG INC INC W/LEAST 12 LDS TRCG ONLY W/O I&R BLOOD 50506 A C FIELD AMB COUNT 5 LILIANE SKAGGS COMPLETE PSC AUTO&AUTO DIFRNTL WBC URINLS 96642 A C FIELD AMB DIP 5 LILIANE SKAGGS STICK/TAB PSC LET REAGNT NON-AUTO MICRSCPY BLOOD 57349 SP [facility] OCCULT 5 [facility] PEROXIDAS INC INC E ACTV QUAL FECES 1-3 SPEC IADNA NOS 75602 SP [facility] AMPLIFIED INC INC PROBE TQ EACH ORGANISM INF AGENT 60834 [facility] DET 5 [facility] NUCLEIC INC INC ACID CLOSTRIDI UM AMP PROBE PRIVACY DIRECTOR STDY 84686 SP [facility] UNATND 4 [facility] W/HRT INC INC RATE/O2 SAT/RESP/ [place] [address] SP [facility] MAXILLOFA 4 [facility] CIAL W/O INC INC CONTRAST MATERIAL THERAPEUT 74004 FIELD AMB FIELD AMB IC 4 PROPHYLAC TIC/DX INJECTION SUBQ/IM INJECTION J1885 FIELD AMB FIELD AMB 4 KETOROLAC [place] INE PER 15 MG RADIOLOGI 73121 KAMARI KAMARI C EXAM 4 MANAN MANAN CHEST 2 VIEWS FRONTAL&L ATERAL OPHTH 66939 DARIA DARIA MEDICAL 4 GRE GRE XM&EVAL COMPRE NEW PT 1/> VST DETERMINA 80966 DARIA HUFF TION 4 GRE GRE REFRACTIV E STATE CREATININ 82161 SP [facility] E BLOOD 4 [place] [address] SP [place] UREA 4 [facility] NITROGEN INC INC QUANTITAT SIDDHARTH MRI BRAIN 76121 KAMARI KAMARI BRAIN 4 MANAN MANAN STEM W/O W/CONTRAS T MATERIAL INJECTION A9576 SP [facility] 4 [facility] GADOTERID INC INC OL PROHANCE MULTIPACK PER ML Encounters Encounter Start End Date Code Location Performer Type Date OFFICE 08467 AINSLEYCARLA SCHMITZWHITNEY OUTPATIEN 7 7 T VISIT 10 MINUTES OFFICE 80730 [facility] T VISIT 25 MINUTES [facility]PITAL SP - 7 7 [facility] INC T OFFICE 41923 [facility] MICHELLE OUTPATIEN 7 7 PHYSICIAN T VISIT S GROUP 25 MINUTES HOSPITAL SP - 7 7 [facility] OUTPATIEN INC T OFFICE 00819 [facility] 7 7 T NEW 45 MINUTES HOSPITAL SP - 7 7 [facility] SP - 7 7 [facility] OUTPATIEN INC T OFFICE 76933 [facility] MICHELLE OUTPATIEN 7 7 PHYSICIAN T VISIT S GROUP 40 MINUTES HOSPITAL SP - 7 7 [facility] OUTPATIEN INC T OFFICE 44078 [facility] FIN[facility] CONSULTAT 7 7 PHYSICIAN ION S GROUP NEW/ESTAB PATIENT 40 MIN OFFICE 38548 [facility] MICHELLE OUTPATIEN 7 7 PHYSICIAN T VISIT S GROUP 15 MINUTES OFFICE 90806 [facility] STONE OUTPATIEN 7 7 PHYSICIAN T VISIT S GROUP 25 MINUTES HOSPITAL SP - 7 7 [facility]PATIEN INC T HOSPITAL SP - 6 6 [facility] OUTPATIEN INC T OFFICE 39306 [facility] MICHELLE OUTPATIEN 6 6 PHYSICIAN T VISIT S GROUP 40 MINUTES OFFICE 54932 [facility] FRYMAN OUTPATIEN 6 6 PHYSICIAN EUG T VISIT S GROUP 25 MINUTES HOSPITAL SP - 6 6 [facility] OUTPATIEN INC T OFFICE 33568 [facility] FR[facility]MAN OUTPATIEN 6 6 PHYSICIAN EUG T VISIT S GROUP 25 MINUTES OFFICE 98538 [facility] JIE OUTPATIEN 6 6 PHYSICIAN COOK T VISIT S GROUP 15 MINUTES HOSPITAL SP - 6 6 [facility] OUTPATIEN INC T EMERGENCY 80870 MIRIAM MAGANA 6 6 PHYSICIAN DEPARTMEN S, [facility] T VISIT HIGH/URGE NT SEVERITY EMERGENCY 08297 SP 6 6 [facility] DEPARTMEN INC T VISIT MODERATE SEVERITY HOSPITAL SP - 6 6 [facility] OUTPATIEN INC T OFFICE 08109 [facility] FRYMAN OUTPATIEN 6 6 PHYSICIAN EUG T VISIT S GROUP 15 MINUTES OFFICE 92406 [facility] FR[facility]MAN OUTPATIEN 6 6 PHYSICIAN EUG T VISIT S GROUP 15 MINUTES HOSPITAL SP - 6 6 [facility] OUTPATIEN INC T OFFICE 00673 [facility] OUTPATIEN 6 6 PHYSICIAN VAN T VISIT S GROUP 10 MINUTES HOSPITAL SP - 6 6 [facility] OUTPATIEN INC T HOSPITAL SP - 5 5 [facility] OUTPATIEN INC T HOSPITAL SP - 5 5 [facility] OUTPATIEN INC T OFFICE 77878 [facility] 5 [place] VISIT ORTHOPAED 15 [facility] MIN[facility]ES [facility] SP - 5 5 [facility] OUTPATIEN INC T OFFICE 43289 SP [facility] OUTPATIEN 5 5 [facility] VISIT HOSPITAL 15 MINUTES HOSPITAL SP - 5 5 [facility] OUTPATIEN INC T OFFICE 22372 [facility] [place] 5 5 [place] VISIT ORTHOPAED 15 [facility] MINUTES OFFICE 15467 SP [facility] OUTPATIEN 5 5 [facility] VISIT [facility] MINUTES HOS[facility]ITAL SP - 5 5 [facility] OUTPATIEN INC [facility] SP - 5 5 [facility] OUTPATIEN INC T OFFICE 75201 SP [facility] OUTPATIEN 5 5 [facility] VISIT [facility] 15 MINUTES OFFICE 83878 [facility] OUT[facility] 5 [place] V[place]THOPAED 15 [facility] MINUTES OFFICE 92792 [facility] OUTPAT[place] 5 5 [place] V[place] ORTHOPAED 15 [facility] MINUTES EMERGENCY 08819 SP 5 5 [facility] DEPARTMEN INC T VISIT LOW/MODER SEVERITY HOSPITAL SP - 5 5 [facility] OUTPATIEN INC T EMERGENCY 78292 MIRIAM Rashid 5 5 PHYSICIAN DEPARTMEN S, PLL T VISIT MODERATE SEVERITY HOSPITAL SP - 5 5 [facility] OUTPATIEN INC [facility]OSPITAL SP - 5 5 [facility] OUTPATIEN INC T OFFICE 45175 [facility] 5 [place] V[place] [facility]THOPAED [facility]ES [facility] SP - 5 5 [facility] OUTPATIEN INC T OFFICE 37857 [facility] CONSULTAT 5 5 [place] ION ORTHOPAED NEW/ESTAB [facility] PLC PATIENT 40 MIN HOSPITAL SP - 5 5 [facility] OUTPATIEN INC T OFFICE 11178 A C FIELD AMB OUTPATIEN 5 5 LILIANE SKAGGS T VISIT PSC 15 MINUTES EMERGENCY 60337 MIRIAM AGARWAL 5 5 PHYSICIAN JOYCE KING S, PLL T VISIT HIGH/URGE NT SEVERITY OFFICE 96413 [facility] FIN[facility] TOD OUTPATIEN 5 5 PHYSICIAN T VISIT S GROUP 15 MINUTES HOSPITAL SP - 5 5 [facility] OUTPATIEN INC T OFFICE 64582 [facility] FIN[facility] TOD OUTPATIEN 5 5 PHYSICIAN T VISIT S GROUP 15 MINUTES HOSPITAL SP - 5 5 [facility] 5 [facility] OUTPATIEN INC T OFFICE 88388 [facility] FINESSE TOD CONSULTAT 5 5 PHYSICIAN ION S GROUP NEW/ESTAB PATIENT 60 MIN OFFICE 48760 A C FIELD AMB OUTPATIEN 5 5 LILIANE SKAGGS T VISIT PSC 15 MINUTES HOSPITAL SP - 5 5 [facility]PAT[facility] SP - 4 4 [facility] OUTPATI[facility] INC T OFFICE 61812 [facility] OUT[facility]IEN 4 4 [facility] T VISIT 15 MINUTES HOSPITAL SP - 4 4 [facility] OUTPATIEN INC T OFFICE 30906 MONGIARDO MONGIARDO CONSULTAT 4 4 FRA FRA ION NEW/ESTAB PATIENT 40 MIN OFFICE 59340 FIELD AMB FIELD AMB OUTPATIEN 4 4 T VISIT 15 MINUTES EMERGENCY 02022 ALFARIS ALFARIS DEPT 4 4 [facility] VISIT HIGH SEVERITY& THREAT FUNCJ OFFICE 13658 FIELD AMB FIELD AMB OUTPATIEN 4 4 T VISIT 15 MINUTES EMERGENCY 73713 ARUN ESME ARUN ESME 4 4 DEPARTMEN T VISIT MODERATE SEVERITY OFFICE 40680 [facility] OUTPATI[facility] 4 4 PHYSICIAN T VISIT S GROUP 10 MINUTES OFFICE 38084 FIELD AMB FIELD AMB OUTPATIEN 4 4 T VISIT 15 MINUTES [facility] SP - 4 4 [facility] OUTPATIEN INC T OFFICE 71863 FIELD AMB FIELD AMB OUTPATIEN 4 4 T NEW 20 MINUTES OFFICE 00207 [facility] CATARINO OUTPATIEN 4 4 T NEW 30 MINUTES
--- OUTSIDE RECORDS SUMMARY | 2017-03-06 01:46 | External Medical Summary Rpt | CCD ---
Author Author , RIO Organization RIO Address Unknown Phone [email or web address] Care Team Providers Care Vascular Technologist Name Role Phone A Violet MOMIN MD [...] Unavailable [facility], [facility] Unavailable Unavailable [...] Unavailable Unavailable INC, [facility] Unavailable Unavailable HOSPITAL, [facility], Unavailable Unavailable [facility] PERRYCASIMIRO MAGANA, VICKY MAGANA Unavailable Unavailable GARNETT TRA, GARNETT TRA Unavailable Unavailable [facility] KOTTER ALTON, KOTTER Unavailable [...] 2016 Problems Code Diagnosis DOS Provider Status [id number] HYPERTENSIV 01-14-2017 SCIF[facility] E RETINOPATHY BILATERAL [id number] NONEXU 01-08-2017 [facility] AGE-REL MACULAR DEG LT EYE INTRMD DRY STG [id number] EXUDATIVE 01-08-2017 [facility] AGE-RELATED MAC DEG RT EYE INACTV CNV E785 HYPERLIPIDE 11-10-2016 [facility] KEVIN PHYSICIANS UNSPECIFIED GROUP G4733 OBSTRUCTIVE 11-10-2016 [facility] APNEA ADULT INC PEDIATRIC I10 ESSENTIAL 11-10-2016 [facility] HYPERTENSIO INC N I119 HYPERTENSIV 11-10-2016 [facility] E HEART PHYSICIANS DISEASE GROUP WITHOUT HEART FAILURE I2510 ASHD MOHEGAN 11-10-2016 [facility] 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 K219 GASTRO-ESOP 11-10-2016 [facility] H REFLUX PHYSICIANS DISEASE GROUP WITHOUT ESOPHAGITIS K449 DIAPHRAGMAT 11-10-2016 [facility] IC HERNIA PHYSICIANS W/O GROUP OBSTRUCTION OR GANGRENE Z955 PRESENCE OF 11-10-2016 [facility] CORONARY PHYSICIANS ANGIOPLASTY GROUP IMPLANT & GRAFT [id number] NONEXUD 10-09-2016 [facility] AGE-REL MAC DEGEN TRU INTERMED DRY STAGE H524 PRESBYOPIA 09-11-2016 SC[facility] R0602 SHORTNESS 07-31-2016 [facility] BRE[facility] R079 CHEST PAIN 07-31-2016 [facility] R4702 DYSPHASIA 07-31-2016 [facility] Z720 TOBACCO USE 07-28-2016 [facility] INC R0681 APNEA NOT 07-22-2016 [facility] CLASSIFIED INC K635 POLYP OF 07-09-2016 [facility] COLON ANESTH OF THE BLUE K921 MELENA 07-09-2016 [facility] ANESTH OF THE BLUE K625 HEMORRHAGE 06-24-2016 [facility] OF ANUS AND PHYSICIANS RECTUM GROUP [id number] PERSONAL 06-24-2016 [facility] HISTORY OF PHYSICIANS COLONIC GROUP POLYPS R001 BRADYCARDIA 06-12-2016 [facility] PHYSICIANS UNSPECIFIED GROUP J0100 ACUTE 05-26-2016 [facility] MAXILLARY PHYSICIANS SINUSITIS GROUP UNSPECIFIED R531 WEAKNESS 05-26-2016 [facility] R5383 OTHER 05-26-2016 [facility] FATIGUE [facility] INC R9431 ABNORMAL 05-26-2016 SP ELECTROCARD [facility] IOGRAM INC R55 SYNCOPE AND 05-19-2016 [facility] COLLAPSE PHYSICIANS GROUP I208 OTHER FORMS 04-29-2016 [facility] OF ANGINA PHYSICIANS PECTORIS GROUP Z44347 ASHD MOHEGAN 04-29-2016 [facility] COR ART PHYSICIANS W/OTH FORMS GROUP ANGINA PECTORIS I209 ANGINA 04-24-2016 [facility]ICAL UNSPECIFIED IMAGING ASS I340 NONRHEUMATI 04-24-2016 [facility] MITRAL SERV [facility] INSUFFICIEN CY J209 ACUTE 01-28-2016 [facility] BRONCHITIS PHYSICIANS UNSPECIFIED GROUP J329 CHRONIC 01-18-2016 [facility] SINUSITIS PHYSICIANS UNSPECIFIED GROUP J40 BRONCHITIS 01-13-2016 [facility] HELLER PHYSICIANS, SPECIFIED PLLC ACUTE OR CHRONIC K828 OTHER 01-13-2016 [place] SPECIFIED MEDICAL DISEASES OF IMAGING ASS GALLBLADDER K922 GASTROINTES 01-13-2016 [facility] KEARNSAL PHYSICIANS, HEMORRHAGE PLLC UNSPECIFIED R05 COUGH 01-13-2016 [facility] Z8551 PERSONAL 01-13-2016 [facility] HISTORY [facility]ICAL MALIGNANT IMAGING ASS NEOPLASM OF BLADDER Q33934 PAIN IN 01-02-2016 [place] RIGHT ARM [facility] O05916 [facility] MOHEGAN 12-24-2015 SP COR [facility] W/UNS INC ANGINA PECTORIS R9439 ABNORMAL 12-24-2015 SP RESULT OTH [facility] CARDIOVASCU INC LR FUNCTION STUDY H6690 OTITIS 11-13-2015 [facility] MEDIA PHYSICIANS UNSPECIFIED GROUP UNSPECIFIED EAR G4730 SLEEP APNEA 09-18-2015 [facility] PHYSICIANS UNSPECIFIED GROUP J3489 OTHER 09-18-2015 [facility] SPECIFIED PHYSICIANS DISORDERS GROUP NOSE AND NASAL SINUSES M5126 OTH 05-09-2015 [facility] [place] [facility] RAL DISC S PLC DISPLACEMEN T LUMBAR RGN M549 DORSALGIA 04-23-2015 SP UNSPECIFIED [facility] INC X36504 PAIN IN LEG 04-23-2015 [facility] UNSPECIFIED INC U74542 PAIN IN 04-16-2015 SP LEFT [facility] M545 LOW BACK 04-01-2015 [facility] [place] PAIN [facility] S PLC [id number] OTH FX 1ST 04-01-2015 [facility] [place] LUMB VERT [facility] SUBSEQUENT S PLC ENC FX RTN HLNG C679 MALIGNANT 03-22-2015 SP NEOPLASM OF [facility] BLADDER INC UNSPECIFIED E041 NONTOXIC 03-22-2015 SP SINGLE [facility] THYROID INC NODULE K58772 PAIN IN 03-21-2015 [place] [facility]G [facility] R600 LOCALIZED 03-21-2015 [facility] 8054 CLOS FX 01-17-2015 [facility] [place] LUMB [facility] VERTEBRA S PLC W/O MENTION SP CORD INJURY 9895 TOXIC 12-13-2014 [facility] EFFECT [facility] PHYSICIANS, [facility] V1582 PERS HX 12-13-2014 SP TOBACCO USE [facility] PRESENTING INC [facility] 53402 BORDERLINE 12-06-2014 [facility] GLAUC OPEN GRE ANGLE BL FINDINGS LOW RSK 70903 OTHER 12-06-2014 [facility] VISUAL GRE DISTORTIONS AND ENTOPTIC PHENOMENA 69360 OTHER 12-06-2014 [facility] VITREOUS GRE OPACITIES 4019 UNSPECIFIED 11-20-2014 SP ESSENTIAL [facility] HYPERTENSIO INC N 65885 OTHER 11-20-2014 SP SPECIFIED [facility] CARDIAC INC DYSRHYTHMIA S 95658 CHEST PAIN 11-20-2014 SP UNSPECIFIED [facility] INC 7242 LUMBAGO 11-12-2014 [facility] [place] [facility] 36298 HEMATURIA 10-11-2014 [facility] UNSPECIFIED DIAGNOSTICS 7245 UNSPECIFIED 10-09-2014 [facility] BACKACHE [facility] 0093 DIARRHEA OF 09-24-2014 [facility] PRESUMED PHYSICIANS INFECTIOUS GROUP ORIGIN 2113 BENIGN 09-24-2014 [facility] NEOPLASM OF PHYSICIANS COLON GROUP 5781 BLOOD IN 09-24-2014 [facility] STOOL PHYSICIANS GROUP 32800 ABDOMINAL 09-24-2014 [facility] PAIN OTHER PHYSICIANS SPECIFIED GROUP SITE 43178 DIVERTICULO 09-14-2014 [facility] SIS OF PHYSICIANS COLON GROUP 48184 DIARRHEA 09-14-2014 [facility] PHYSICIANS GROUP 62525 ABDOMINAL 09-14-2014 [facility] PAIN, PHYSICIANS UNSPECIFIED GROUP SITE 4619 ACUTE 08-27-2014 [facility] SINUSITIS, PHYSICIANS UNSPECIFIED GROUP 412 OLD 07-19-2014 [facility] [place] [address] ATRIAL 07-19-2014 [facility] FIBRILLAT[place] 73792 NONSPECIFIC 07-19-2014 [facility] ABNORMAL LAR ELECTROCARD CONSULTANTS IOGRAM O 5693 HEMORRHAGE 07-03-2014 Gilberto MOMIN OF RECTUM PSC AND ANUS 05615 UNS SHIGA 06-28-2014 SP TOXIN-PRODU [facility] CING E COLI INC INF CLASS ELSW 38494 OBSTRUCTIVE 03-05-2014 [facility] APNEA INC 460 ACUTE 01-06-2014 BLAYNE VAN NASOPHARYNG ITIS 4739 UNSPECIFIED 01-05-2014 SP SINUSITIS [facility] INC 46597 ACOUSTIC 12-01-2013 [facility] TRAUMA TO FRA EAR 86068 UNSPECIFIED 12-01-2013 [facility] TINNITUS FRA 3899 UNSPECIFIED 12-01-2013 [facility] HEARING FRA LOSS 7336 TIETZES 11-09-2013 FIELD AMB DISEASE 37322 PAINFUL 11-06-2013 [facility] MOH RESPIRATION 81676 ESOPHAGEAL 11-02-2013 FIELD AMB REFLUX 27963 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FI[facility] 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 4659 ACUTE URIS 10-13-2013 ARUN ESME OF UNSPECIFIED SITE 496 CHRONIC 10-13-2013 [facility]UN ESME [address] OBSTRUCTION NEC 3670 HYPERMETROP 10-07-2013 [facility] IA GRE 7840 HEADACHE 07-05-2013 [facility] INC 39364 OTHER 07-03-2013 FIELD AMB MALAISE AND FATIGUE [...] 17 45 PH E 6 97 AR [place] MA OP CY 50 MC G SP [...] CY IL 50 0 MG TA B NH 00 01 01 10 5 00 CL [...] 17 57 PH E 9 37 AR [place] MA OP CY 50 MC G SP [...] Procedure DOS Code Location Performer Comment FUNDUS 83005 [facility] PHOTOGRAP 7 HY W/INTERPR ETATION & REPORT ECG 67593 [facility] ROUTINE 7 [facility] ECG INC INC W/LEAST 12 LDS TRCG ONLY W/O I&R ECG 43662 [facility] ROUTINE 7 [facility] ECG INC INC W/LEAST 12 LDS TRCG ONLY W/O I&R FLUORESCE 99563 [facility] IN ANGRPH 7 W/MULTIFR INDIRA I&R UNI/BI FUNDUS 78824 [facility] PHOTOGRAP 7 HY W/INTERPR ETATION & REPORT OPHTH 07015 [facility] MEDICAL 7 XM&EVAL COMPRE NEW PT 1/> VST RADEX 53904 [place] [facility] ESOPHAGUS 7 MEDICAL IMAGING ASS ECG 74871 [facility] ROUTINE 7 [facility] ECG INC INC W/LEAST 12 LDS TRCG ONLY W/O I&R ECG 69467 [facility] MICHELLE ROUTINE 7 PHYSICIAN ECG S GROUP W/LEAST 12 LDS I&R ONLY POLYSOM 61268 [facility] 6/>YRS 7 [facility] SLEEP /> INC INC ADDL AYO ATTND ANES 39073 [facility] 7 ANESTH INTESTINE OF THE BLUE ENDOSCOPY DISTAL DUODENUM ECG 30057 [facility] ROUTINE 7 PHYSICIAN ECG S GROUP W/LEAST 12 LDS I&R ONLY CV STRS 13028 [facility] TST 7 [facility] XERS&/OR INC INC RX CONT ECG TRCG ONLY ECG 15320 [facility] ROUTINE 6 [facility] ECG INC INC W/LEAST 12 LDS TRCG ONLY W/O I&R COLLECTIO 00663 [facility] N VENOUS 6 [facility] [place]LOOD [place] [address] [facility] FREE 6 [facility] [place] [address] [facility] THYROID 6 [facility] STIMULATI INC INC NG HORMONE TSH CATH PLMT 56153 [facility] MICHELLE L HRT & 6 PHYSICIAN ARTS S GROUP W/NJX & ANGIO IMG S&I BASIC 05617 [facility] METABOLIC 6 [facility] PANEL INC INC CALCIUM TOTAL RADIOLOGI 76487 [facility] C EXAM 6 MEDICAL CHEST 2 IMAGING VIEWS ASS FRONTAL&L ATERAL ECHO 03542 [place] KOTTER TTHRC R-T 6 MEDICAL [place] 2D SERV W/WOM-MOD FOUNDATIO E COMPL N SPEC&COLR D COLLECTIO 50415 SP Khalil VENOUS 6 [facility] BLOOD INC INC VENIPUNCT URE INJECTION J1100 [facility] FRYMAN 6 PHYSICIAN EUG DEXAMETHO S GROUP SONE SODIUM PHOSPHATE 1 MG THERAPEUT 45923 [facility] FRYMAN IC 6 PHYSICIAN EUG PROPHYLAC S GROUP TIC/DX INJECTION SUBQ/IM THER 96281 [facility] PROPH/DX 6 [facility] NJX IV INC INC PUSH SINGLE/1S T SBST/[place] [address] BREANNA BENITES ABDOMEN & 6 MEDICAL MANAN PELVIS IMAGING W/O ASS CONTRAST MATERIAL THROMBOPL 82441 [facility] ASTIN 6 [facility] TIME INC INC PARTIAL PLASMA/WH OLE BLOOD BLOOD 92930 [facility] TYPING 6 [facility] SEROLOGIC INC INC RH (D) ANTIBODY 84075 [facility] SCREEN 6 [facility] RBC EACH INC INC SERUM TECHNIQUE BLOOD 77173 [facility] TYPING 6 [facility] SEROLOGIC INC INC ABO PROTHROMB 86985 [facility] IN TIME 6 [facility] INC INC URNLS DIP 76871 [facility] 6 [facility] STICK/TAB INC INC LET REAGENT AUTO MICROSCOP Y BLOOD 46814 [facility] OCCULT 6 [facility] PEROXIDAS INC INC E ACTV QUAL FECES 1-3 SPEC BLOOD 77111 [facility] COUNT 6 [facility] COMPLETE INC INC AUTO&AUTO DIFRNTL WBC LIPID 33522 [facility] PANEL 6 [facility] INC INC RADIOLOGI 68254 [facility] CAZARES[facility]ARI C EXAM 6 MEDICAL MANAN CHEST 2 IMAGING VIEWS ASS FRONTAL&L ATERAL PRESSURIZ 27464 [facility] ED/NONPRE 6 [facility] SSURIZED INC INC INHALATIO N TREATMENT CULTURE 68324 [facility] BACTERIAL 6 [facility] BLOOD INC INC AEROBIC W/ID ISOLATES COLLECTIO 09710 [facility] N VENOUS 6 [facility] BLOOD INC INC VENIPUNCT URE COMPREHEN 51451 [facility] SIVE 6 [facility] METABOLIC INC INC PANEL DUP-SCAN 72138 [place] [facility] ALL XTR VEINS 6 MEDICAL IMAGING UNILATERA ASS L/LIMITED STUDY PRQ 79744 [facility] MICHELLE TRLUML 6 PHYSICIAN MAT CORONARY S GROUP ANGIOPLAS TY ONE ART/BRANC H PRQ 11101 [facility] MICHELLE TRLUML 6 PHYSICIAN MAT CORONARY S GROUP STENT W/ANGIO ONE ART/BRNCH BLOOD 28993 [facility] COUNT 6 [facility] COMPLETE INC INC AUTO&AUTO DIFRNTL WBC CATH PLMT 53260 [facility] L HRT & 6 [facility] ARTS INC INC W/NJX & ANGIO IMG S&I BASIC 35485 [facility] METABOLIC 6 [facility] PANEL INC INC CALCIUM TOTAL MYOCARDIA 93136 [facility] MICHELLE L SPECT 6 PHYSICIAN MAT MULTIPLE S GROUP STUDIES BLOOD 86392 [facility] COUNT 6 [facility] COMPLETE INC INC AUTO&AUTO DIFRNTL WBC LIPID 16781 [facility] PANEL 6 [facility] INC INC COMPREHEN 59380 [facility] SIVE 6 [facility] [address] [facility] THYROID 6 [facility] STIMULATI [place] [address] [facility] THYROXINE 6 [facility] TOTAL INC INC ECG 74998 [facility] ROUTINE 6 [facility] ECG INC INC W/LEAST 12 LDS TRCG ONLY W/O I&R XTRNL ECG 88614 [facility] & 48 HR 5 [facility] RECORDING INC INC EXTERNAL 37100 [facility] ECG 5 [facility] SCANNING INC INC ANALYSIS REPORT XTRNL ECG 43606 [facility] S RHYTHM P W/I&R UP TO 48 HRS ECG 09740 [facility] ROUTINE 5 [facility] ECG INC INC W/LEAST 12 LDS TRCG ONLY W/O I&R E-STIM G0283 [facility] 1/> AREAS 5 [facility] OTH THAN INC INC WND CARE PART TX PLAN APPL 50180 [facility] MODALITY 5 [facility] 1/> AREAS INC INC ULTRASOUN D EA 15 MIN MANUAL 68728 [facility] THERAPY 5 [facility] TQS 1/> INC INC REGIONS EACH 15 MINUTES THERAPEUT 38364 [facility] IC PX 1/> 5 [facility] AREAS INC INC EACH 15 MIN EXERCISES APPLICATI 84918 [facility] ON 5 [facility] MODALITY INC INC 1/> AREAS HOT/COLD PACKS APPLICATI 31368 [facility] ON 5 [facility] MODALITY INC INC 1/> AREAS HOT/COLD PACKS THERAPEUT 61491 [facility] IC PX 1/> 5 [facility] AREAS INC INC EACH 15 MIN EXERCISES E-STIM G0283 [facility] 1/> AREAS 5 [facility] OTH THAN INC INC WND CARE PART TX PLAN E-STIM G0283 [facility] 1/> AREAS 5 [facility]OS[facility] OTH THAN INC INC WND CARE PART TX PLAN THERAPEUT 20866 [facility] IC PX 1/> 5 [facility] AREAS INC INC EACH 15 MIN EXERCISES APPLICATI 10349 [facility] ON 5 [facility] MODALITY INC INC 1/> AREAS HOT/COLD PACKS MANUAL 28208 [facility] THERAPY 5 [facility] TQS 1/> INC INC REGIONS EACH 15 MINUTES MANUAL 31011 [facility] THERAPY 5 [facility] TQS 1/> INC INC REGIONS EACH 15 MINUTES APPLICATI 92312 [facility] ON 5 [facility] MODALITY INC INC 1/> AREAS HOT/COLD PACKS E-STIM G0283 [facility] 1/> AREAS 5 [facility] OTH THAN INC INC WND CARE PART TX PLAN E-STIM G0283 SP SP 1/> AREAS 5 [facility] OTH THAN INC INC WND CARE PART TX PLAN APPLICATI 09437 SP MALONEON ON 5 [facility] MODALITY INC INC 1/> AREAS HOT/COLD PACKS APPL 65544 [facility] MODALITY 5 [facility] 1/> AREAS INC INC TRACTION MECHANICA L MANUAL 59579 SP SP THERAPY 5 [facility] TQS 1/> INC INC REGIONS EACH 15 MINUTES APPLICATI 63124 SP SP ON 5 [facility] MODALITY INC INC 1/> AREAS HOT/COLD PACKS THERAPEUT 06582 SP SP IC PX 1/> 5 [facility] AREAS INC INC EACH 15 MIN EXERCISES E-STIM G0283 [facility] 1/> AREAS 5 [facility] OTH THAN INC INC WND CARE PART TX PLAN PHYSICAL 82041 SP SP THERAPY 5 [facility] EVALUATIO INC INC N RADEX 19451 [facility] TRA SPINE 5 [place] LUMBOSA[facility] ORTHOPAED AL 2/3 ICS PLC VIEWS THERAPEUT 05308 SP JOLLEY IC 5 [facility] TIC/DX INJECTION SUBQ/IM INJECTION J1885 SP JOLLEY 5 [facility] TROMETHAM INE PER 15 MG COLLECTIO 51522 [facility] N VENOUS 5 [facility] [place] [address] [facility] THYROID 5 [facility] STIMULATI [place] [address] [facility] FREE 5 [facility] THYROXINE INC INC COMPREHEN 18224 [facility] SIVE 5 [facility] METABOLIC INC INC PANEL LIPID 28345 [facility] PANEL 5 [facility] INC INC BLOOD 08515 [facility] COUNT 5 [facility] COMPLETE INC INC AUTO&AUTO DIFRNTL WBC DUP-SCAN 14403 [facility] XTR VEINS 5 [facility] INC INC UNILATERA L/LIMITED STUDY RADEX 37811 [facility] SPINE 5 [facility] LUMBOSACR INC INC AL MINIMUM 4 VIEWS RADEX 88362 [facility] TRA SPINE 5 [place] [facility]UM[facility] ORTHOPAED AL 2/3 [facility] PLC VIEWS RADEX 36161 [facility] TRA SPINE 5 [place] LUMB[facility] ORTHOPAED AL 2/3 [facility] PLC VIEWS OPHTH 16376 [facility] 5 GRE GRE XM&EVAL COMPRHNSV ESTAB PT 1/> VISUAL 64816 [facility] XM 5 GRE GRE UNI/BI W/INTERP EXTENDED EXAM ECG 13484 [facility] ROUTINE 5 [facility] ECG INC INC W/LEAST 12 LDS TRCG ONLY W/O I&R COLLECTIO 23206 [facility] N VENOUS 5 [facility] BLOOD INC INC VENIPUNCT URE BASIC 13410 [facility] METABOLIC 5 [facility] PANEL INC INC CALCIUM TOTAL MRI 74434 [facility] TRA SPINAL 5 [place] CANAL ORTHOPAED LUMBAR ICS PLC W/O CONTRAST MATERIAL ECG 97840 [facility] ROUTINE 5 [facility] ECG INC INC W/LEAST 12 LDS TRCG ONLY W/O I&R ECG 30371 [facility] ROUTINE 5 [facility] ECG INC INC W/LEAST 12 LDS TRCG ONLY W/O I&[place] [address] J C Lads QUEST PROSTATE 5 DIAGNOSTI DIAGNOSTI SPECIFIC CS CS ANTIGEN TOTAL URINLS 70669 A C FIELD AMB DIP 5 LILIANE SKAGGS STICK/TAB PSC LET REAGNT NON-AUTO MICRSCPY RADEX 21521 [place] [facility]INE[facility] SPINE 5 [facility] THORACIC IMAGING 2 VIEWS ASS RADEX 86189 [facility] 5 [facility] LUMBOSACR IMAGING AL 2/[place] [address] [facility], [facility] SVETLANA PATHOLOGY GROSS&VAN ROSCOPIC EXAM COLONOSCO 43545 [facility] FINESSE TOD PY 5 PHYSICIAN W/BIOPSY S GROUP SINGLE/MU LTIPLE ANES 13373 [facility] LOWER 5 ANESTH SHE INTESTINE OF THE BLUE ENDOSCOPY DISTAL DUODENUM CV STRS 70356 [facility] TST 5 [facility] XERS&/OR INC INC RX CONT ECG TRCG ONLY ECHO 65463 [facility] TTHRC R-T 5 [facility] 2D INC INC W/WOM-MOD E COMPL SPEC&COLR D CV STRS 29655 CARDIOVAS MICHELLE TST 5 CULAR MAT XERS&/OR CONSULTAN RX CONT TS O ECG I&R ONLY ECG 32773 [facility] ROUTINE 5 [facility] ECG INC INC W/LEAST 12 LDS TRCG ONLY W/O I&R BLOOD 78729 A C FIELD AMB COUNT 5 LILIANE SKAGGS COMPLETE PSC AUTO&AUTO DIFRNTL WBC URINLS 66668 A C FIELD AMB DIP 5 LILIANE SKAGGS STICK/TAB PSC LET REAGNT NON-AUTO MICRSCPY BLOOD 75107 [facility] OCCULT 5 [facility] PEROXIDAS INC INC E ACTV QUAL FECES 1-3 SPEC IADNA NOS 98031 [facility] 5 [facility] AMPLIFIED INC INC PROBE TQ EACH ORGANISM INF AGENT 44604 [facility] DET 5 [facility] NUCLEIC INC INC ACID CLOSTRIDI UM AMP PROBE COMMUNICATIONS FIELD TECHNICIAN STDY 98730 [facility] UNATND 4 [facility] W/HRT INC INC RATE/O2 SAT/RESP/ [place] [address] [facility] MAXILLOFA [facility] CIAL W/O INC INC CONTRAST MATERIAL THERAPEUT 76631 FIELD AMB FIELD AMB IC 4 PROPHYLAC TIC/DX INJECTION SUBQ/IM INJECTION J1885 FIELD AMB FIELD AMB 4 KETOROLAC TROMETHAM INE PER 15 MG RADIOLOGI 54616 KAMARI KAMARI C EXAM 4 MANAN MANAN CHEST 2 VIEWS FRONTAL&L ATERAL OPHTH 34476 DARIA DARIA MEDICAL 4 GRE GRE XM&EVAL COMPRE NEW PT 1/> VST DETERMINA 60077 DARIA HUFF TION 4 GRE GRE REFRACTIV E STATE CREATININ 73407 [facility] E BLOOD 4 [place] [address] [facility] UREA 4 [facility] NITROGEN INC INC QUANTITAT SIDDHARTH MRI BRAIN 88198 KAMARI KAMARI BRAIN 4 MANAN MANAN STEM W/O W/CONTRAS T MATERIAL INJECTION A9576 SP [facility] GADOTERID INC INC OL PROHANCE MULTIPACK PER ML Encounters Encounter Start End Date Code Location Performer Type Date OFFICE 41851 [facility] OUTPATI[facility] 7 7 T VISIT 10 MINUTES OFFICE 63677 [facility] SP - [facility] T OFFICE 23555 [facility] MICHELLE OUTPATIEN 7 7 PHYSICIAN T VISIT S GROUP 25 MINUTES [facility] SP - 7 7 [facility] INC T OFFICE 18189 [facility] 7 7 T NEW 45 MINUTES [facility] SP - 7 7 [facility] SP - 7 7 [facility] INC T OFFICE 44514 [facility] OUTPATIEN 7 7 PHYSICIAN T VISIT S GROUP 40 MINUTES [facility]OSP[facility] SP - 7 7 [facility] INC T OFFICE 29779 [facility] FINESSE CONSULTAT 7 7 PHYSICIAN ION S GROUP NEW/ESTAB PATIENT 40 MIN OFFICE 49163 [facility] MICHELLE OUTPATIEN 7 7 PHYSICIAN T VISIT S GROUP 15 MINUTES OFFICE 35456 [facility] STONE OUTPATIEN 7 7 PHYSICIAN T VISIT S GROUP 25 MINUTES [facility]PITAL SP - 7 7 [facility] SP - 6 6 [facility] INC T OFFICE 81873 [facility] MICHELLE OUTPATIEN 6 6 PHYSICIAN T VISIT S GROUP 40 MINUTES OFFICE 56884 [facility] [place] OUTPATIEN 6 6 PHYSICIAN EUG T VISIT S GROUP 25 MINUTES HOSPITAL SP - 6 6 [facility] OUTPATI[facility] INC T OFFICE 46621 [facility] [place] OUTPATIEN 6 6 PHYSICIAN EUG T VISIT S GROUP 25 MINUTES OFFICE 84157 [facility] JIE OUTPATIEN 6 6 PHYSICIAN COOK T VISIT S GROUP 15 MINUTES HOSPITAL SP - 6 6 [facility] OUTPATIEN INC T EMERGENCY 29534 MIRIAM MAGANA 6 6 PHYSICIAN DEPARTMEN S, [facility] T VISIT HIGH/URGE NT SEVERITY EMERGENCY 28705 SP 6 6 [facility] DEPARTMEN INC T VISIT MODERATE SEVERITY HOSPITAL SP - 6 6 [facility] OUTPATIEN INC T OFFICE 82264 [facility] [place] OUTPATIEN 6 6 PHYSICIAN EUG T VISIT S GROUP 15 MINUTES OFFICE 56658 [facility] [place] OUTPATIEN 6 6 PHYSICIAN EUG T VISIT S GROUP 15 MINUTES [facility]OSPITAL SP - 6 6 [facility]PATI[facility] INC T OFFICE 80137 [facility] [place] OUTPATIEN 6 6 PHYSICIAN VAN T VISIT S GROUP 10 MINUTES [facility]OSPITAL SP - 6 6 [facility] T [facility] SP - 5 5 [facility] T [facility] SP - 5 5 [facility] OUTPATIEN INC T OFFICE 69815 [facility] 5 5 [place] VISIT [facility]ED 15 [facility] MINUTES [facility] SP - 5 5 [facility] OUTPATIEN INC T OFFICE [id number] SP FRYMAN OUTPATIEN 5 5 [facility] VISIT HOSP[facility] 15 MINUTES HOSPITAL SP - 5 5 [facility] T OFFICE 73467 [facility] [place] [place] [facility] MINUTES OFFICE 54557 SP YMAN OUTPATIEN 5 5 [facility] VISIT [facility] 15 MINUTES HOSPITAL SP [facility] 5 5 [facility] SP - 5 5 [facility] INC T OFFICE 64020 SP YMAN OUTPATIEN 5 5 [facility] VISIT [facility] 15 MINUTES OFFICE 17869 [facility] [place] [facility] MINUT[facility] OFFICE 84185 [facility] [place] 5 [place] [facility] [facility] MINUTES EMERGENCY 96921 SP 5 5 [facility] DEPARTMEN INC T VISIT LOW/MODER SEVERITY HOSPITAL SP - 5 5 [facility] OUTPATI[facility] INC T EMERGENCY 38341 MIRIAM Rashid 5 5 PHYSICIAN DEPARTMEN S, PLL T VISIT MODERATE SEVERITY HOSPITAL SP - 5 5 [facility] SP - 5 5 [facility] T OFFICE 29028 [facility] [place] [facility] [facility] MINUTES [facility] SP - 5 5 [facility] T OFFICE 65577 [facility] CON[facility]ULTAT 5 5 [place] ION ORTHOPAED NEW/ESTAB [facility]CS PLC PATIENT 40 MIN HOSPITAL SP - 5 5 [facility] OUTPATIEN INC T OFFICE 03698 A C FIELD AMB OUTPATIEN 5 5 LILIANE SKAGGS T VISIT PSC 15 MINUTES EMERGENCY 69752 MIRIAM AGARWAL 5 5 PHYSICIAN JOYCE KING S, PLL T VISIT HIGH/URGE NT SEVERITY OFFICE 09772 [facility] FINESSE TOD OUTPATIEN 5 5 PHYSICIAN T VISIT S GROUP 15 MINUTES HOSPITAL SP - 5 5 [facility] OUTPATIEN INC T OFF[facility] 95184 [facility] FINESSE TOD OUTPATIEN 5 5 PHYSICIAN T VISIT S GROUP 15 MINUTES HOSPITAL SP - 5 5 [facility] OUTPATIEN [facility] T HOSPITAL SP - 5 5 [facility] OUTPATIEN INC T OFFICE 80627 [facility] FINESSE TOD CONSULTAT 5 5 PHYSICIAN ION S GROUP NEW/ESTAB PATIENT 60 MIN OFFICE 46685 A C FIELD AMB OUTPATIEN 5 5 LILIANE SKAGGS T VISIT PSC 15 MINUTES HOSPITAL SP - 5 5 [facility] OUTPATIEN INC T [facility] SP - 4 4 [facility] OUTPATIEN INC T OFFICE 70067 [facility] CONTRERASEY OUTPATIEN 4 4 [facility] T VISIT 15 MINUTES HOSPITAL SP - 4 4 [facility] OUTPATIEN INC T OFFICE 64189 MONGIARDO MONGIARDO CONSULTAT 4 4 FRA FRA ION NEW/ESTAB PATIENT 40 MIN OFFICE 95937 FIELD AMB FIELD AMB OUTPATIEN 4 4 T VISIT 15 MINUTES EMERGENCY 76713 ALFARIS ALFARIS DEPT 4 4 [facility] VISIT HIGH SEVERITY& THREAT FUNCJ OFFICE 75311 FIELD AMB FIELD AMB OUTPATIEN 4 4 T VISIT 15 MINUTES EMERGENCY 30637 ARUN ESME ARUN ESME 4 4 DEPARTMEN T VISIT MODERATE SEVERITY OFFICE 50490 [facility] OUTPATIEN 4 4 PHYSICIAN T VISIT S GROUP 10 MINUTES OFFICE 45462 FIELD AMB FIELD AMB OUTPATIEN 4 4 T VISIT 15 MINUTES [facility] SP - 4 4 [facility] OUTPATIEN INC T OFFICE 57594 FIELD AMB FIELD AMB OUTPATIEN 4 4 T NEW 20 MINUTES OFFICE 52833 [facility] CATARINO OUTPATIEN 4 4 T NEW 30 MINUTES
--- OUTSIDE RECORDS SUMMARY | 2017-03-06 01:50 | External Medical Summary Rpt | CCD ---
Author Author , RIO Organization [employer] Address Unknown Phone [email or web address] Care Team Providers Care Grain Combiner Name Role Phone A Violet MOMIN MD PSC, Gilberto Unavailable Unavailable Violet MOMIN MD PSC ALFARIS MOH, ALFARIS Unavailable Unavailable MOH ALFARIS MOH, ALFARIS Unavailable Unavailable MOH WHITTEN DEVANG, WHITTEN DEVANG Unavailable Unavailable BEINEKE VALENTE, BEINEKE Unavailable Unavailable VALENTE PK L, PK L Unavailable Unavailable ORO, ORO Unavailable Unavailable ORO ALL, ORO ALL Unavailable Unavailable KINGSLEY CATARINO, KINGSLEY CATARINO Unavailable Unavailable KINGSLEY CATARINO, KINGSLEY CATARINO Unavailable Unavailable [facility] Unavailable Unavailable [facility] Un[facility] Unavailable Unavailable [...] Unavailable Unavailable INC, [facility] Unavailable Unavailable [facility]OSPITAL, [facility], Unavailable Unavailable [facility] PERRYCASIMIRO MAGANA, VICKY MAGANA Unavailable Unavailable GARNETT TRA, GARNETT TRA Unavailable Unavailable [facility] KOTTER ALTON, KOTTER Unavailable [...] Unavailable Purpose Continuity of Care Document - 06-03-2013 through 2016 Problems Code Diagnosis DOS Provider Status [id number] HYPERTENSIV 01-14-2017 [facility] E RETINOPATHY BILATERAL [id number] NONEXU 01-08-2017 [facility] AGE-REL MACULAR DEG LT EYE INTRMD DRY STG [id number] EXUDATIVE 01-08-2017 [facility] AGE-RELATED MAC DEG RT EYE INACTV CNV E785 HYPERLIPIDE 11-10-2016 [facility] KEVIN PHYSICIANS UNSPECIFIED GROUP G4733 OBSTRUCTIVE 11-10-2016 [place] SLEEP [facility] APNEA ADULT INC PEDIATRIC I10 ESSENTIAL 11-10-2016 [place] PRIMARY [facility] HYPERTENSIO INC N I119 HYPERTENSIV 11-10-2016 [facility] E HEART PHYSICIANS DISEASE GROUP WITHOUT HEART FAILURE I2510 ASHD KAKTOVIK 11-10-2016 [facility] 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 K219 GASTRO-ESOP 11-10-2016 [facility] H REFLUX PHYSICIANS DISEASE GROUP WITHOUT ESOPHAGITIS K449 DIAPHRAGMAT 11-10-2016 [facility] IC HERNIA PHYSICIANS W/O GROUP OBSTRUCTION OR GANGRENE Z955 PRESENCE OF 11-10-2016 [facility] CORONARY PHYSICIANS ANGIOPLASTY GROUP IMPLANT & GRAFT [id number] NONEXUD 10-09-2016 [facility] AGE-REL MAC DEGEN TRU INTERMED DRY STAGE H524 PRESBYOPIA 09-11-2016 [facility] R0602 SHORTNESS 07-31-2016 SP OF BREATH [facility] INC R079 CHEST PAIN 07-31-2016 [facility] R4702 DYSPHASIA 07-31-2016 [facility] Z720 TOBACCO USE 07-28-2016 [facility] INC R0681 APNEA NOT 07-22-2016 SP ELSEWHERE [facility] CLASSIFIED INC K635 POLYP OF 07-09-2016 [facility] COLON ANESTH OF THE BLUE K921 MELENA 07-09-2016 [facility] ANESTH OF THE BLUE K625 HEMORRHAGE 06-24-2016 [facility] OF ANUS AND PHYSICIANS RECTUM GROUP Y37537 PERSONAL 06-24-2016 [facility] HISTORY OF PHYSICIANS COLONIC GROUP POLYPS R001 BRADYCARDIA 06-12-2016 [facility] PHYSICIANS UNSPECIFIED GROUP J0100 ACUTE 05-26-2016 [facility] MAXILLARY PHYSICIANS SINUSITIS GROUP UNSPECIFIED R531 WEAKNESS 05-26-2016 [facility] R5383 OTHER 05-26-2016 SP FATIGUE [facility] INC R9431 ABNORMAL 05-26-2016 SP ELECTROCARD [facility] IOGRAM INC R55 SYNCOPE AND 05-19-2016 [facility] COLLAPSE PHYSICIANS GROUP I208 OTHER FORMS 04-29-2016 [facility] OF ANGINA PHYSICIANS PECTORIS GROUP B73038 ASHD KAKTOVIK 04-29-2016 [facility] COR ART PHYSICIANS W/OTH FORMS GROUP ANGINA PECTORIS I209 ANGINA 04-24-2016 [facility] UNSPECIFIED IMAGING ASS I340 NONRHEUMATI 04-24-2016 [facility] INSUFFICIEN CY J209 ACUTE 01-28-2016 [facility] BRONCHITIS PHYSICIANS UNSPECIFIED GROUP J329 CHRONIC 01-18-2016 [facility] SINUSITIS PHYSICIANS UNSPECIFIED GROUP J40 BRONCHITIS 01-13-2016 [facility], SPECIFIED PLLC ACUTE OR CHRONIC K828 OTHER 01-13-2016 [facility] SPECIFIED MEDICAL DISEASES OF IMAGING ASS GALLBLADDER K922 GASTROINTES 01-13-2016 [facility] TINAL PHYSICIANS, HEMORRHAGE PLLC UNSPECIFIED R05 COUGH 01-13-2016 [facility] Z8551 PERSONAL 01-13-2016 [facility] MALIGNANT [facility]ING ASS NEOPLASM OF BLADDER A90609 PAIN IN 01-02-2016 [facility] RIGHT [facility] V41693 [facility] KAKTOVIK 12-24-2015 SP COR [facility] W/UNS INC ANGINA PECTORIS R9439 ABNORMAL 12-24-2015 SP RESULT OTH [facility] CARDIOVASCU INC LR FUNCTION STUDY H6690 OTITIS 11-13-2015 [facility] MEDIA PHYSICIANS UNSPECIFIED GROUP UNSPECIFIED EAR G4730 SLEEP APNEA 09-18-2015 [facility] PHYSICIANS UNSPECIFIED GROUP J3489 OTHER 09-18-2015 [facility] SPECIFIED PHYSICIANS DISORDERS GROUP NOSE AND NASAL SINUSES M5126 OTH 05-09-2015 [facility] [place] [facility] RAL DISC S PLC DISPLACEMEN T LUMBAR RGN M549 DORSALGIA 04-23-2015 [facility] UNSPECIFIED [facility] INC Z36043 PAIN IN LEG 04-23-2015 [facility] UNSPECIFIED INC O05064 PAIN IN 04-16-2015 SP LEFT [facility] M545 LOW BACK 04-01-2015 [facility] [place] PAIN [facility] S PLC [id number] OTH FX 1ST 04-01-2015 [facility] [place] LUMB VERT [facility] SUBSEQUENT S PLC ENC FX RTN HLNG C679 MALIGNANT 03-22-2015 SP NEOPLASM OF [facility] BLADDER INC UNSPECIFIED E041 NONTOXIC 03-22-2015 SP SINGLE [facility] THYROID INC NODULE X01728 PAIN IN 03-21-2015 [facility]G [facility] R600 LOCALIZED 03-21-2015 [facility] 8054 CLOS FX 01-17-2015 [facility] [place] LUMB [facility] VERTEBRA S PLC W/O MENTION SP CORD INJURY 9895 TOXIC 12-13-2014 [facility] EFFECT [facility] PHYSICIANS, [facility] V1582 PERS HX 12-13-2014 SP TOBACCO USE [facility] PRESENTING INC [facility] 20278 BORDERLINE 12-06-2014 [facility] GLAUC OPEN GRE ANGLE BL FINDINGS LOW RSK 20396 OTHER 12-06-2014 [facility] VISUAL GRE DISTORTIONS AND ENTOPTIC PHENOMENA 83679 OTHER 12-06-2014 [facility] VITREOUS GRE OPACITIES 4019 UNSPECIFIED 11-20-2014 SP ESSENTIAL [facility] HYPERTENSIO INC N 95776 OTHER 11-20-2014 SP SPECIFIED [facility] CARDIAC INC DYSRHYTHMIA S 22370 CHEST PAIN 11-20-2014 SP UNSPECIFIED [facility] INC 7242 LUMBAGO 11-12-2014 [facility] [place] [facility] 54749 HEMATURIA 10-11-2014 [facility] UNSPECIFIED DIAGNOSTICS 7245 UNSPECIFIED 10-09-2014 [facility]HE [facility] 0093 DIARRHEA OF 09-24-2014 [facility] PRESUMED PHYSICIANS INFECTIOUS GROUP ORIGIN 2113 BENIGN 09-24-2014 [facility] NEOPLASM OF PHYSICIANS COLON GROUP 5781 BLOOD IN 09-24-2014 [facility] STOOL PHYSICIANS GROUP 77332 ABDOMINAL 09-24-2014 [facility] PAIN OTHER PHYSICIANS SPECIFIED GROUP SITE 69364 DIVERTICULO 09-14-2014 [facility] SIS OF PHYSICIANS COLON GROUP 04964 DIARRHEA 09-14-2014 [facility] PHYSICIANS GROUP 16754 ABDOMINAL 09-14-2014 [facility] PAIN, PHYSICIANS UNSPECIFIED GROUP SITE 4619 ACUTE 08-27-2014 [facility] SINUSITIS, PHYSICIANS UNSPECIFIED GROUP 412 OLD 07-19-2014 [facility] [place]ARD[place] [address] ATRIAL 07-19-2014 [facility] FIBRI[place] [address]71 NONSPECIFIC 07-19-2014 [facility] ABNORMAL LAR ELECTROCARD CONSULTANTS IOGRAM O 5693 HEMORRHAGE 07-03-2014 Gilberto MOMIN OF RECTUM PSC AND ANUS 21661 UNS SHIGA 06-28-2014 SP TOXIN-PRODU [facility] CING E COLI INC INF CLASS ELSW 00883 OBSTRUCTIVE 03-05-2014 [place] SLEEP [facility] APNEA INC 460 ACUTE 01-06-2014 BLAYNE VAN NASOPHARYNG ITIS 4739 UNSPECIFIED 01-05-2014 SP SINUSITIS [facility] INC 75177 ACOUSTIC 12-01-2013 [facility] TRAUMA TO FRA EAR 28243 UNSPECIFIED 12-01-2013 [facility] TINNITUS FRA 3899 UNSPECIFIED 12-01-2013 [facility] HEARING FRA LOSS 7336 TIETZES 11-09-2013 FIELD AM[facility] DISEASE 36776 PAINFUL 11-06-2013 [facility] MOH RESPIRATION 86386 ESOPHAGEAL 11-02-2013 FIELD AMB REFLUX 13720 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FIELD 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 4659 ACUTE URIS 10-13-2013 [facility] ESME OF UNSPECIFIED SITE 496 CHRONIC 10-13-2013 [facility] ESME AIRWAY OBSTRUCTION NEC 3670 HYPERMETROP 10-07-2013 [facility] IA GRE 7840 HEADACHE 07-05-2013 [facility] INC 42166 OTHER 07-03-2013 FIELD AMB MALAISE AND FATIGUE [...] -1 .0 00 IN ti 90 9- 1- 00 00 IC ve TA 00 20 20 43 TI 41 17 17 44 PH N 5 21 AR 10 MA CY MG TA BL ET LO 00 07 08 30 30 00 CL Ac SA 78 -1 -1 .0 00 IN ti RT 15 9- - 00 00 IC ve AN 20 20 [...] 17 45 PH E 6 97 AR SC MA OP CY 50 MC G SP RA Y SI 16 06 07 30 30 00 [...] 2. 5 MG TA B CL 13 05 06 30 30 00 [...] CY D DR 40 MG TA B LO 00 05 06 30 30 00 CL Ac SA 78 -2 -1 .0 00 IN ti RT 15 3- 6- 00 00 IC ve AN 20 20 20 43 -H 69 [address] 2 62 AR Z MA 50 CY -1 2. 5 MG TA B OM 60 05 06 [...] L CY 8 MG TA BL ET CL 13 04 05 30 30 00 [...] CY IL 50 0 MG TA B SC 00 01 01 10 5 00 CL Ac ED 05 -0 -2 .0 00 IN ti NI 40 3- 7- 00 00 IC ve SO 01 20 20 41 NE 82 17 17 79 PH 9 41 AR 20 MA CY MG TA BL ET OM 60 12 01 30 30 00 CL Ac EP 50 -2 -2 .0 00 IN ti RA 50 0- 0- 00 00 IC ve ZO 14 20 20 41 LE 60 16 17 57 PH [address] MA CY 40 MG CA PS UL E AT 60 12 01 30 30 00 [...] 75 MA CY MG TA BL ET AM 57 12 01 20 10 00 [...] 17 57 PH E 9 37 AR SC MA OP CY 50 MC G SP RA Y NI 43 12 01 25 25 00 CL Ac TR 59 -0 -1 .0 00 IN ti OG 80 8- 3- 00 00 IC ve LY 43 20 20 41 CE 61 16 17 42 PH RI 1 54 AR N MA 0. CY 4 MG TA BL ET SL Procedures Procedure DOS Code Location Performer Comment FUNDUS 10797 [facility] PHOTOGRAP 7 HY W/INTERPR ETATION & REPORT ECG 12475 [facility] ROUTINE 7 [facility] ECG INC INC W/LEAST 12 LDS TRCG ONLY W/O I&R ECG 58511 [facility] ROUTINE 7 [facility] ECG INC INC W/LEAST 12 LDS TRCG ONLY W/O I&R FUNDUS 30150 [facility] PHOTOGRAP 7 HY W/INTERPR ETATION & REPORT FLUORESCE 78705 [facility] IN ANGRPH 7 W/MULTIFR INDIRA I&R UNI/BI OPHTH 84312 SCIF[facility] SCIFRES MEDICAL 7 XM&EVAL COMPRE NEW PT 1/> VST RADEX 85563 [facility] ORO ESOPHAGUS 7 MEDICAL IMAGING ASS ECG 16189 [facility] ROUTINE 7 [facility] ECG INC INC W/LEAST 12 LDS TRCG ONLY W/O I&R ECG 57276 [facility] MICHELLE ROUTINE 7 PHYSICIAN ECG S GROUP W/LEAST 12 LDS I&R ONLY POLYSOM 82235 [facility] 6/>YRS 7 [facility] SLEEP 4/> INC INC ADDL AYO ATTND ANES 21103 [facility] 7 ANESTH INTESTINE OF THE BLUE ENDOSCOPY DISTAL DUODENUM ECG 39320 [facility] ROUTINE 7 PHYSICIAN ECG S GROUP W/LEAST 12 LDS I&R ONLY CV STRS 94233 [facility] TST 7 [facility] XERS&/OR INC INC RX CONT ECG TRCG ONLY ECG 95780 [facility] ROUTINE 6 [facility] ECG INC INC W/LEAST 12 LDS TRCG ONLY W/O I&R COLLECTIO 43654 [facility] N VENOUS 6 [facility] [place] [address] [facility] FREE 6 [facility] [place] [address] [facility] THYROID 6 [facility] STIMULATI INC INC NG HORMONE TSH CATH PLMT 79699 [facility] MICHELLE L HRT & 6 PHYSICIAN ARTS S GROUP W/NJX & ANGIO IMG S&I BASIC 07635 [facility] METABOLIC 6 [facility] PANEL INC INC CALCIUM TOTAL COLLECTIO 40799 [facility] N VENOUS 6 [facility] BLOOD INC INC VENIPUNCT URE RADIOLOGI 80627 [facility] C EXAM 6 [facility] CHEST 2 INC INC VIEWS FRONTAL&L ATERAL ECHO 14044 [facility] R-T 6 [facility] [place] 2D SERV W/WOM-MOD FOUNDATIO E COMPL N SPEC&COLR D INJECTION J1100 [facility] FRYMAN 6 PHYSICIAN EUG DEXAMETHO S GROUP SONE SODIUM PHOSPHATE 1 MG THERAPEUT 18332 [facility] FRYMAN IC 6 PHYSICIAN EUG PROPHYLAC S GROUP TIC/DX INJECTION SUBQ/IM THER 53021 [facility] PROPH/DX 6 [facility] NJX IV INC INC PUSH SINGLE/1S T SBST/DRUG BLOOD 73579 [facility] COUNT 6 [facility] COMPLETE INC INC AUTO&AUTO DIFRNTL WBC PROTHROMB 18125 [facility] IN TIME 6 [facility] INC INC BLOOD 47016 [facility] TYPING 6 [facility] SEROLOGIC INC INC RH (D) THROMBOPL 17443 [facility] ASTIN 6 [facility] TIME INC INC PARTIAL PLASMA/WH OLE BLOOD COMPREHEN 90336 [facility] SIVE 6 [facility] METABOLIC INC INC PANEL PRESSURIZ 75771 [facility] ED/NONPRE 6 [facility] SSURIZED INC INC INHALATIO N TREATMENT URNLS DIP 77130 [facility] 6 [facility] STICK/TAB INC INC LET REAGENT AUTO MICROSCOP Y BLOOD 32478 [facility] OCCULT 6 [facility] PEROXIDAS INC INC E ACTV QUAL FECES 1-3 SPEC LIPID 28025 [facility] PANEL 6 [facility] INC INC ANTIBODY 54732 [facility] SCREEN 6 [facility] RBC EACH INC INC SERUM TECHNIQUE BLOOD 05508 [facility] TYPING 6 [facility] SEROLOGIC INC INC ABO COLLECTIO 46901 [facility] N VENOUS 6 [facility] [address] [place] KAMAR[facility] ABDOMEN & 6 MEDICAL MANAN PELVIS IMAGING W/O ASS CONTRAST MATERIAL RADIOLOGI 22379 [facility] C EXAM 6 [facility] CHEST 2 INC INC VIEWS FRONTAL&L ATERAL CULTURE 63256 [facility] BACTERIAL 6 [facility] BLOOD INC INC AEROBIC W/ID ISOLATES DUP-SCAN 28807 [facility] [facility] ALL XTR VEINS 6 MEDICAL IMAGING UNILATERA ASS L/LIMITED STUDY PRQ 50084 [facility] MICHELLE TRLUML 6 PHYSICIAN MAT CORONARY S GROUP STENT W/ANGIO ONE ART/BRNCH PRQ 21242 [facility] MICHELLE TRLUML 6 PHYSICIAN MAT CORONARY S GROUP ANGIOPLAS TY ONE ART/BRANC H BLOOD 18117 [facility] COUNT 6 [facility] COMPLETE INC INC AUTO&AUTO DIFRNTL WBC CATH PLMT 53587 [facility] L HRT & 6 [facility] ARTS INC INC W/NJX & ANGIO IMG S&I BASIC 16768 [facility] METABOLIC 6 [facility] PANEL INC INC CALCIUM TOTAL MYOCARDIA 82210 [facility] MICHELLE L SPECT 6 PHYSICIAN MAT MULTIPLE S GROUP STUDIES LIPID 39641 [facility] PANEL 6 [facility] INC INC BLOOD 53770 [facility] COUNT 6 [facility] COMPLETE INC INC AUTO&[place] [address] [facility] THYROID 6 [facility] STIMULATI [place] [address] [facility] THYROXINE 6 [facility] TOTAL INC INC COMPREHEN 62985 [facility] SIVE 6 [facility] METABOLIC INC INC PANEL ECG 01001 [facility] ROUTINE 6 [facility] ECG INC INC W/LEAST 12 LDS TRCG ONLY W/O I&R XTRNL ECG 40032 [facility] & 48 HR 5 [facility] RECORDING INC INC XTRNL ECG 60494 SP WADE JR 5 [facility] S RHYTHM P W/I&R UP TO 48 HRS EXTERNAL 10762 [facility] ECG 5 [facility] SCANNING INC INC ANALYSIS REPORT ECG 59887 [facility] ROUTINE 5 [facility] ECG INC INC W/LEAST 12 LDS TRCG ONLY W/O I&R E-STIM G0283 [facility] 1/> AREAS 5 [facility] OTH THAN INC INC WND CARE PART TX PLAN THERAPEUT 92063 [facility] IC PX 1/> 5 [facility] AREAS INC INC EACH 15 MIN EXERCISES APPLICATI 32095 [facility] ON 5 [facility] MODALITY INC INC 1/> AREAS HOT/COLD PACKS APPL 31407 [facility] MODALITY 5 [facility] 1/> AREAS INC INC ULTRASOUN D EA 15 MIN MANUAL 04079 [facility] THERAPY 5 [facility] TQS 1/> INC INC REGIONS EACH 15 MINUTES APPLICATI 75947 [facility] ON 5 [facility] MODALITY INC INC 1/> AREAS HOT/COLD PACKS THERAPEUT 01566 [facility] IC PX 1/> 5 [facility] AREAS INC INC EACH 15 MIN EXERCISES E-STIM G0283 [facility] 1/> AREAS 5 [facility] OTH THAN INC INC WND CARE PART TX PLAN E-STIM G0283 [facility] 1/> AREAS 5 [facility] OTH THAN INC INC WND CARE PART TX PLAN THERAPEUT 94867 [facility] IC PX 1/> 5 [facility] AREAS INC INC EACH 15 MIN EXERCISES APPLICATI 63981 [facility] ON 5 [facility] MODALITY INC INC 1/> AREAS HOT/COLD PACKS MANUAL 52869 [facility] THERAPY 5 [facility] TQS 1/> INC INC REGIONS EACH 15 MINUTES MANUAL 72884 [facility] THERAPY 5 [facility] TQS 1/> INC INC REGIONS EACH 15 MINUTES APPLICATI 20760 [facility] ON 5 [facility] MODALITY INC INC 1/> AREAS HOT/COLD PACKS E-STIM G0283 [facility] 1/> AREAS 5 [facility] OTH THAN INC INC WND CARE PART TX PLAN E-STIM G0283 [facility] 1/> AREAS 5 [facility] OTH THAN INC INC WND CARE PART TX PLAN APPL 68289 [facility] MODALITY 5 [facility] 1/> AREAS INC INC TRACTION MECHANICA L APPLICATI 55517 [facility] ON 5 [facility] MODALITY INC INC 1/> AREAS HOT/COLD PACKS APPLICATI 83442 SP MALONEON ON 5 [facility] MODALITY INC INC 1/> AREAS HOT/COLD PACKS MANUAL 13903 [facility] THERAPY 5 [facility] TQS 1/> INC INC REGIONS EACH 15 MINUTES E-STIM G0283 [facility] 1/> AREAS 5 [facility] OTH THAN INC INC WND CARE PART TX PLAN THERAPEUT 27365 [facility] IC PX 1/> 5 [facility] AREAS INC INC EACH 15 MIN EXERCISES PHYSICAL 49485 SP SP THERAPY 5 [facility] H[facility] EVALUATIO INC INC N RADEX 85368 [facility] TRA SPINE 5 [place] LUMBOSACR ORTHOPAED AL 2/3 [facility] VIEWS THERAPEUT 98231 SP JOLLEY IC 5 [facility] TIC/DX INJECTION SUBQ/IM INJECTION J1885 SP JOLLEY 5 [facility] INE PER 15 MG BLOOD 37955 [facility] COUNT 5 [facility] COMPLETE INC INC AUTO&[place] [address] [facility] THYROID 5 [facility] STIMULATI [place] [address] [facility] FREE 5 [facility] THYROXINE INC INC COMPREHEN 98670 [facility] SIVE 5 [facility] METABOLIC INC INC PANEL COLLECTIO 91091 [facility] N VENOUS 5 [facility] BLOOD INC INC VENIPUNCT URE LIPID 37553 [facility] PANEL 5 [facility] INC INC DUP-SCAN 49054 [facility] XTR VEINS 5 [facility] INC INC UNILATERA L/LIMITED STUDY RADEX 61805 SP SP SPINE 5 [facility] LUMBOSACR INC INC AL MINIMUM 4 VIEWS RADEX 25303 [facility] TRA SPINE 5 [place] LUMB[facility] ORTHOPAED AL 2/3 [facility] VIEWS RADEX 27763 [facility] TRA SPINE 5 [place] LUMB[facility]A[place] ORTHOPAED AL 2/3 [facility] VIEWS OPHTH 48413 [facility] 5 GRE GRE XM&EVAL COMPRHNSV ESTAB PT 1/> VISUAL 76410 [facility] XM 5 GRE GRE UNI/BI W/INTERP EXTENDED EXAM ECG 74280 [facility] ROUTINE 5 [facility] ECG INC INC W/LEAST 12 LDS TRCG ONLY W/O I&R COLLECTIO 44516 [facility] N VENOUS 5 [facility] BLOOD INC INC VENIPUNCT URE BASIC 11619 [facility] METABOLIC 5 [facility] PANEL INC INC CALCIUM TOTAL MRI 07160 [facility] TRA SPINAL 5 [place] CANAL ORTHOPAED LUMBAR [facility] PLC W/O CONTRAST MATERIAL ECG 66594 [facility] ROUTINE 5 [facility] ECG INC INC W/LEAST 12 LDS TRCG ONLY W/O I&R ECG 49434 [facility] ROUTINE 5 [facility] ECG INC INC W/LEAST 12 LDS TRCG ONLY W/O I&[place] [address] [facility] PROSTATE 5 DIAGNOSTI DIAGNOSTI SPECIFIC CS CS ANTIGEN TOTAL URINLS 05762 A C FIELD AMB DIP 5 LILIANE SKAGGS STICK/TAB PSC LET REAGNT NON-AUTO MICRSCPY RADEX 55562 [place] BEINE SPINE 5 [facility] LUMBOSACR IMAGING AL 2/3 ASS VIEWS RADEX 75144 [place] [facility] SPINE 5 [facility] THORACIC IMAGING 2 VIEWS ASS COLONOSCO 96901 [facility] PY 5 [facility] W/BIOPSY INC INC SINGLE/MU LTIPLE ANES 36472 [facility] LOWER 5 ANESTH SHE INTESTINE OF THE [place]UE [place] [address] [facility], SERRANO SURG 5 PSYCHIATRIC PATHOLOGY GROSS&VAN ROSCOPIC EXAM CV STRS 33873 CARDIOVAS MICHELLE TST 5 CULAR MAT XERS&/OR CONSULTAN RX CONT TS O ECG I&R ONLY CV STRS 52710 [facility] TST 5 [facility] XERS&/OR INC INC RX CONT ECG TRCG ONLY ECHO 48034 SHAVONNE SIDDIQI TTHRC R-T 5 MEDICAL 2D SERV W/WOM-MOD FOUNDATIO E COMPL N SPEC&COLR D ECG 31241 [facility] ROUTINE 5 [facility] ECG INC INC W/LEAST 12 LDS TRCG ONLY W/O I&R BLOOD 91872 A C FIELD AMB COUNT 5 LILIANE SKAGGS COMPLETE PSC AUTO&AUTO DIFRNTL WBC URINLS 57454 A C FIELD AMB DIP 5 LILIANE SKAGGS STICK/TAB PSC LET REAGNT NON-AUTO MICRSCPY INF AGENT 25762 [facility] DET [facility] NUCLEIC INC INC ACID CLOSTRIDI UM AMP PROBE IADNA NOS 55208 [facility] AMPLIFIED INC INC PROBE TQ EACH ORGANISM BLOOD 83165 [facility] OCCULT 5 [facility] PEROXIDAS INC INC E ACTV QUAL FECES 1-3 SPEC TRAVEL ASSISTANT STDY 31141 [facility] UNATND [facility] W/HRT INC INC RATE/O2 SAT/RESP/ [place] [address] KAMARI KAMARI MAXILLOFA 4 MANAN MANAN CIAL W/O CONTRAST MATERIAL THERAPEUT 05080 FIELD AMB FIELD AMB IC 4 PROPHYLAC TIC/DX INJECTION SUBQ/IM INJECTION J1885 FIELD AMB FIELD AMB 4 KETOROLAC TROMETHAM INE PER 15 MG RADIOLOGI 70470 KAMARI KAMARI C EXAM 4 MANAN MANAN CHEST 2 VIEWS FRONTAL&L ATERAL DETERMINA 16968 [facility] GRE GRE REFRACTIV E STATE OPHTH 06678 [facility] 4 GRE GRE XM&EVAL COMPRE NEW PT 1/> VST INJECTION A9576 [facility] GADOTERID INC INC OL PROHANCE MULTIPACK PER ML CREATININ 42362 [facility] [place] BLOOD [facility] INC INC MRI BRAIN 38497 [facility] BRAIN 4 [facility] STEM W/O INC INC W/[place] [address] [facility] UREA [facility] NITROGEN INC INC QUANTITAT SIDDHARTH Encounters Encounter Start End Date Code Location Performer Type Date OFFICE 07625 [facility] 7 7 T VISIT 10 MINUTES OFFICE [facility] 7 T VISIT 25 MINUTES OFFICE 93096 [facility] MICHELLE OUTPATIEN 7 7 PHYSICIAN T VISIT S GROUP [facility]UT[facility] SP - 7 7 [facility] SP - 7 7 [facility] OUTPAT[facility] INC T OFFICE 62795 [facility] 7 T NEW 45 MINUTES [facility] SP - 7 7 [facility] T OFFICE 93198 [facility] OUTPATIEN 7 7 PHYSICIAN T VISIT S GROUP 40 MINUTES [facility] SP - 7 7 [facility] SP - 7 7 [facility] T OFFICE 30156 [facility] FINESSE CONSULTAT 7 7 PHYSICIAN ION S GROUP NEW/ESTAB PATIENT 40 MIN OFFICE 78797 [facility] MICHELLE OUTPATIEN 7 7 PHYSICIAN T VISIT S GROUP 15 MINUTES [facility] SP - 7 7 [facility] INC T OFFICE 54038 [facility] STONE OUTPATIEN 7 7 PHYSICIAN T VISIT S GROUP 25 MINUTES [facility] SP - 6 6 [facility] OUTPATI[facility] INC T OFFICE 89062 [facility] MICHELLE OUTPATIEN 6 6 PHYSICIAN T VISIT S GROUP 40 MINUTES OFFICE 38678 [facility] FRYMAN OUTPATIEN 6 6 PHYSICIAN EUG T VISIT S GROUP 25 MINUTES [facility] SP - 6 6 [facility] OUTPATI[facility] INC T OFFICE 44900 [facility] FRYMAN OUTPATIEN 6 6 PHYSICIAN EUG T VISIT S GROUP 25 MINUTES OFFICE 32676 [facility] JIE OUTPATIEN 6 6 PHYSICIAN COOK T VISIT S GROUP 15 MINUTES EMERGENCY [id number] SP 6 6 [facility] DEPARTMEN INC T VISIT MODERATE SEVERITY EMERGENCY 18110 MIRIAM PERRY IZZY 6 6 PHYSICIAN DEPARTMEN S, [facility] T VISIT HIGH/URGE NT SEVERITY HOSPITAL SP - 6 6 [facility] OUTPATIEN [facility] SP - 6 6 [facility] OUTPATIEN INC T OFFICE 45439 [facility] OUTPATIEN 6 6 PHYSICIAN EUG T VISIT S GROUP 15 MINUTES HOSPITAL SP - 6 6 [facility] OUTPATIEN INC T OFFICE 57340 [facility]MAN OUTPATIEN 6 6 PHYSICIAN EUG T VISIT S GROUP 15 MINUTES OFFICE 25313 [facility] [place] OUTPATIEN 6 6 PHYSICIAN VAN T VISIT S GROUP 10 MINUTES HOSPITAL SP - 6 6 [facility]PITAL SP - 5 5 [facility] SP - 5 5 [facility] OUTPATIEN INC T OFFICE 31646 [facility] 5 5 [place] [facility] VIS[facility] MIN[facility]ES [facility] SP - 5 5 [facility]PATI[facility] INC T OFFICE 38370 [facility] 15 MINUTES [facility]OSPITAL SP - 5 5 [facility] T OFFICE 53017 [facility] [place] [facility] MINUTES OFFICE 70457 SP [facility] OUTPATIEN 5 5 [facility] T VISIT HOSPITAL 15 MINUTES HOSPITAL SP - 5 5 [facility] OUTPATIEN INC T OFFICE 32486 SP [facility] OUTPATIEN 5 5 [facility] T VISIT HOSPITAL 15 MINUTES HOSPITAL SP - 5 5 [facility] OUTPATIEN INC T OFFICE 69689 [facility] [place] [facility] MIN[facility]ES OFFICE 02164 [facility] 5 [place] [facility] [facility]ED 15 [facility] MINUTES EMERGENCY 70533 MIRIAM Rashid 5 5 PHYSICIAN DEPARTMEN S, PLL T VISIT MODERATE SEVERITY HOSPITAL SP - 5 5 [facility] OUTPATIEN INC T EMERGENCY 40366 SP 5 5 [facility] DEPARTMEN INC T VISIT LOW/MODER SEVERITY HOSPITAL SP - 5 5 [facility] T [facility] SP - 5 5 [facility]PATI[facility] INC T OFFICE 35420 [facility] 5 5 [place] [facility] VISIT [facility]OP[facility]ED [facility] MINUTES [facility] SP - 5 5 [facility] OUTPATIEN INC T OFFICE 02600 [facility] 5 5 [place] ION ORTHOPAED NEW/ESTAB [facility] PATIENT 40 MIN HOSPITAL SP - 5 5 [facility] OUTPATIEN INC T OFFICE 45431 Gilberto MOLINA AMB OUTPATIEN 5 5 LILIANE SKAGGS T VISIT PSC 15 MINUTES EMERGENCY 11032 MIRIAM AGARWAL 5 5 PHYSICIAN COOK DEPARTMEN S, PLLC T VISIT HIGH/URGE NT SEVERITY OFFICE 19185 [facility] FINESSE TOD OUTPATIEN 5 5 PHYSICIAN T VISIT S GROUP 15 MINUTES HOSPITAL SP - 5 5 [facility] OUTPATIEN INC T OFFICE 42203 [facility] FR[facility]MAN OUTPATIEN 5 5 PHYSICIAN EUG T VISIT S GROUP 15 MINUTES HOSPITAL SP - 5 5 [facility] OUTPATIEN INC T HOSPITAL SP - 5 5 [facility] OUTPATIEN INC T OFFICE 45099 [facility] FINESSE TOD CONSULTAT 5 5 PHYSICIAN ION S GROUP NEW/ESTAB PATIENT 60 MIN OFFICE 59860 Gilberto Lazo FIELD AMB OUTPATIEN 5 5 LILIANE SKAGGS T VISIT PSC 15 MINUTES HOSPITAL SP - 5 5 [facility] OUTPATIEN INC HOSPITAL SP - 4 4 [facility] OUTPATIEN INC T OFFICE 57479 [facility] CISNEROS OUTPATIEN 4 4 VAN VAN T VISIT 15 MINUTES HOSPITAL SP - 4 4 [facility] OUTPATIEN INC T OFFICE 83066 MONGIARDO MONGIARDO CONSULTAT 4 4 FRA FRA ION NEW/ESTAB PATIENT 40 MIN OFFICE 14194 FIELD AMB FIELD AMB OUTPATIEN 4 4 T VISIT 15 MINUTES EMERGENCY 24309 ALFARIS ALFARIS DEPT 4 4 [facility] VISIT HIGH SEVERITY& THREAT FUNCJ OFFICE 29338 FIELD AMB FIELD AMB OUTPATIEN 4 4 T VISIT 15 MINUTES EMERGENCY 79596 ARUN ESME ARUN ESME 4 4 DEPARTMEN T VISIT MODERATE SEVERITY OFFICE 69503 [facility] OUTPATIEN 4 4 PHYSICIAN T VISIT S GROUP 10 MINUTES OFFICE 33290 FIELD AMB FIELD AMB OUTPATIEN 4 4 T VISIT 15 MINUTES [facility] [place] - 4 4 [facility] OUTPATIEN INC T OFFICE 04253 FIELD AMB FIELD AMB OUTPATIEN 4 4 T NEW 20 MINUTES OFFICE 65474 [facility] OUTPATIEN 4 4 T NEW 30 MINUTES
--- OUTSIDE RECORDS SUMMARY | 2017-03-06 01:50 | External Medical Summary Rpt | CCD ---
Author Author , RIO Organization [employer] Address Unknown Phone [email or web address] Care Team Providers Care Flow Machine Operator Name Role Phone A Violet MOMIN MD PSC, Gilberto Unavailable Unavailable Violet MOMIN MD PSC ALFARIS MOH, ALFARIS Unavailable Unavailable MOH ALFARIS MOH, ALFARIS Unavailable Unavailable MOH WHITTEN DEVANG, WHITTEN DEVANG Unavailable Unavailable BEINEKE VALENTE, BEINEKE Unavailable Unavailable VALENTE PK L, KP L Unavailable Unavailable ORO, ORO Unavailable Unavailable ORO ALL, ORO ALL Unavailable Unavailable KINGSLEY CATARINO, KINGSLEY CATARINO Unavailable Unavailable KINGSLEY CATARINO, KINGSLEY CATARINO Unavailable Unavailable [facility] Unavailable Unavailable [facility], [facility] Un[facility] Unavailable Unavailable [...] Unavailable Unavailable INC, [facility] Unavailable Unavailable HOSPITAL, [facility], Unavailable Unavailable [facility] PERRYCASIMIRO MAGANA, VICKY MAGANA Unavailable Unavailable GARNETT TRA, GARNETT TRA Unavailable Unavailable [facility] KOTTER ALTON, KOTTER Unavailable [...] 2016 Problems Code Diagnosis DOS Provider Status [id number] HYPERTENSIV 01-14-2017 [facility] E RETINOPATHY BILATERAL [id number] NONEXU 01-08-2017 [facility]-REL MACULAR DEG LT EYE INTRMD DRY STG [id number] EXUDATIVE 01-08-2017 [facility] AGE-RELATED MAC DEG RT EYE INACTV CNV E785 HYPERLIPIDE 11-10-2016 [facility] K[facility]IN [facility] UNSPECIFIED GROUP G4733 OBSTRUCTIVE 11-10-2016 [facility] APNEA ADULT INC PEDIATRIC I10 ESSENTIAL 11-10-2016 [facility] HYPERTENSIO INC N I119 HYPERTENSIV 11-10-2016 [facility] E HEART PHYSICIANS DISEASE GROUP WITHOUT HEART FAILURE I2510 ASHD [place] 11-10-2016 [facility] 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 K219 GASTRO-ESOP 11-10-2016 [facility] H REFLUX PHYSICIANS DISEASE GROUP WITHOUT ESOPHAGITIS K449 DIAPHRAGMAT 11-10-2016 [facility] IC HERNIA PHYSICIANS W/O GROUP OBSTRUCTION OR GANGRENE Z955 PRESENCE OF 11-10-2016 [facility] CORONARY PHYSICIANS ANGIOPLASTY GROUP IMPLANT & GRAFT [id number] NONEXUD 10-09-2016 [facility] AGE-REL MAC DEGEN TRU INTERMED DRY STAGE H524 PRESBYOPIA 09-11-2016 [facility] R0602 SHORTNESS 07-31-2016 [facility] INC R079 CHEST PAIN 07-31-2016 [facility] R4702 DYSPHASIA 07-31-2016 [facility] Z720 TOBACCO USE 07-28-2016 [facility] INC R0681 APNEA NOT 07-22-2016 [facility] CLASSIFIED INC K635 POLYP OF 07-09-2016 [facility] COLON ANESTH OF THE BLUE K921 MELENA 07-09-2016 [facility] AN[facility] K625 HEMORRHAGE 06-24-2016 [facility] RECTUM GROUP [id number] PERSONAL 06-24-2016 [facility] HISTORY OF PHYSICIANS COLONIC GROUP POLYPS R001 BRADYCARDIA 06-12-2016 [facility] PHYSICIANS UNSPECIFIED GROUP J0100 ACUTE 05-26-2016 [facility] MAXILLARY PHYSICIANS SINUSITIS GROUP UNSPECIFIED R531 WEAKNESS 05-26-2016 [facility] R5383 OTHER 05-26-2016 [facility] FATIGUE [facility] R9431 ABNORMAL 05-26-2016 [facility] ELECTROCARD [facility] IOGRAM INC R55 SYNCOPE AND 05-19-2016 [facility] COLLAPSE PHYSICIANS GROUP I208 OTHER FORMS 04-29-2016 [facility] ANGINA PHYSICIANS PECTORIS GROUP [id number] ASHD [place] 04-29-2016 [facility] COR ART PHYSICIANS W/OTH FORMS GROUP ANGINA PECTORIS I209 ANGINA 04-24-2016 [facility]ICAL UNSPECIFIED IMAGING ASS I340 NONRHEUMATI 04-24-2016 [facility] INSUFFICIEN CY J209 ACUTE 01-28-2016 [facility] BRONCHITIS PHYSICIANS UNSPECIFIED GROUP J329 CHRONIC 01-18-2016 [facility] SINUSITIS PHYSICIANS UNSPECIFIED GROUP J40 BRONCHITIS 01-13-2016 [facility]ER PH[facility]ICIANS, SPECIFIED PLLC ACUTE OR CHRONIC K828 OTHER 01-13-2016 [place] SPECIFIED MEDICAL DISEASES OF IMAGING ASS GALLBLADDER K922 GASTROINTES 01-13-2016 [facility] TINAL PHYSICIANS, HEMORRHAGE PLLC UNSPECIFIED R05 COUGH 01-13-2016 [facility] Z8551 PERSONAL 01-13-2016 [facility] HISTORY [facility]ICAL MALIGNANT IMAGING ASS NEOPLASM OF BLADDER Y74651 PAIN IN 01-02-2016 [place] RIGHT ARM [facility] R98880 [facility] TABLE [place]AIN 12-24-2015 SP COR ARTREY [facility] W/UNS INC ANGINA PECTORIS R9439 ABNORMAL 12-24-2015 [facility] RESULT OTH [facility] CARDIOVASCU INC LR FUNCTION STUDY H6690 OTITIS 11-13-2015 [facility] MEDIA PHYSICIANS UNSPECIFIED GROUP UNSPECIFIED EAR G4730 SLEEP APNEA 09-18-2015 [facility] PHYSICIANS UNSPECIFIED GROUP J3489 OTHER 09-18-2015 [facility] SPECIFIED PHYSICIANS DISORDERS GROUP NOSE AND NASAL SINUSES M5126 OTH 05-09-2015 [facility] [place] [facility] RAL DISC S PLC DISPLACEMEN T LUMBAR RGN M549 DORSALGIA 04-23-2015 [facility] UNSPECIFIED [facility] INC C97478 PAIN IN LEG 04-23-2015 [facility] UNSPECIFIED INC N82774 PAIN IN 04-16-2015 SP LEFT [facility] M545 LOW BACK 04-01-2015 [facility] [place] PAIN [facility] S PLC [id number] OTH FX 1ST 04-01-2015 [facility] [place] LUMB VERT [facility] SUBSEQUENT S PLC ENC FX RTN HLNG C679 MALIGNANT 03-22-2015 [facility] NEOPLASM OF [facility] BLADDER INC UNSPECIFIED E041 NONTOXIC 03-22-2015 [facility] SINGLE [facility] THYROID INC NODULE Y93830 PAIN IN 03-21-2015 [place] [facility] LEG [facility] R600 LOCALIZED 03-21-2015 [facility] 8054 CLOS FX 01-17-2015 [facility] [place] LUMB [facility] VERTEBRA S PLC W/O MENTION SP CORD INJURY 9895 TOXIC 12-13-2014 [facility] EFF[facility]IC[facility] V1582 PERS HX 12-13-2014 SP TOBACCO USE [facility] PRESENTING INC [facility] 45894 BORDERLINE 12-06-2014 [facility] GLAUC OPEN GRE ANGLE BL FINDINGS LOW RSK 49093 OTHER 12-06-2014 [facility] VISUAL GRE DISTORTIONS AND ENTOPTIC PHENOMENA 51209 OTHER 12-06-2014 [facility] VITREOUS GRE OPACITIES 4019 UNSPECIFIED 11-20-2014 SP ESSENTIAL [facility] HYPERTENSIO INC N 64327 OTHER 11-20-2014 SP SPECIFIED [facility] CARDIAC INC DYSRHYTHMIA S 58777 CHEST PAIN 11-20-2014 [facility] UNSPECIFIED [facility] INC 7242 LUMBAGO 11-12-2014 [facility] [place] [facility] PLC 39775 HEMATURIA 10-11-2014 [facility] UNSPECIFIED DIAGNOSTICS 7245 UNSPECIFIED 10-09-2014 [facility] [facility]HE [facility] 0093 DIARRHEA OF 09-24-2014 [facility] PRESUMED PHYSICIANS INFECTIOUS GROUP ORIGIN 2113 BENIGN 09-24-2014 [facility] NEOPLASM OF PHYSICIANS COLON GROUP 5781 BLOOD IN 09-24-2014 [facility] STOOL PHYSICIANS GROUP 57883 ABDOMINAL 09-24-2014 [facility] PAIN OTHER PHYSICIANS SPECIFIED GROUP SITE 53841 DIVERTICULO 09-14-2014 [facility] SIS OF PHYSICIANS COLON GROUP 28168 DIARRHEA 09-14-2014 [facility] PHYSICIANS GROUP 34074 ABDOMINAL 09-14-2014 [facility] PAIN, PHYSICIANS UNSPECIFIED GROUP SITE 4619 ACUTE 08-27-2014 [facility] SINUSITIS, PHYSICIANS UNSPECIFIED GROUP 412 OLD 07-19-2014 [facility] [place] [address] ATRIAL 07-19-2014 [facility] FIBRILLATIO [place] 89307 NONSPECIFIC 07-19-2014 [facility] ABNORMAL LAR ELECTROCARD CONSULTANTS IOGRAM O 5693 HEMORRHAGE 07-03-2014 Gilberto MOMIN OF RECTUM PSC AND ANUS 04628 UNS SHIGA 06-28-2014 [facility] TOXIN-PRODU [facility] CING E COLI INC INF CLASS ELSW 48725 OBSTRUCTIVE 03-05-2014 [facility] APNEA INC 460 ACUTE 01-06-2014 BLAY[facility] VAN NASOPHARYNG ITIS 4739 UNSPECIFIED 01-05-2014 [facility] SINUSITIS [facility] INC 77739 ACOUSTIC 12-01-2013 [facility] TRAUMA TO FRA EAR 89548 UNSPECIFIED 12-01-2013 [facility] TINNITUS FRA 3899 UNSPECIFIED 12-01-2013 [facility] HEARING FRA LOSS 7336 TIETZES 11-09-2013 [facility] DISEASE 16028 PAINFUL 11-06-2013 [facility] MOH RESPIRATION 89453 ESOPHAGEAL 11-02-2013 [facility] REFLUX 00246 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[facility] 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 4659 ACUTE URIS 10-13-2013 AR[facility] ESME OF UNSPECIFIED SITE 496 CHRONIC 10-13-[address] [facility] [address] OBSTRUCTION NEC 3670 HYPERMETROP 10-07-2013 [facility] IA GRE 7840 HEADACHE 07-05-2013 [facility] INC 67898 OTHER 07-03-2013 FIELD AMB MALAISE AND FATIGUE [...] 17 45 PH E 6 97 AR MS MA OP CY 50 MC G SP [...] CY IL 50 0 MG TA B MS 00 01 01 10 5 00 CL [...] 17 57 PH E 9 37 AR MS MA OP CY 50 MC G SP [...] Procedure DOS Code Location Performer Comment FUNDUS 88647 [facility] PH[facility]GRAP 7 HY W/INTERPR ETATION & REPORT ECG 07205 [facility] ROUTINE 7 [facility] ECG INC INC W/LEAST 12 LDS TRCG ONLY W/O I&R ECG 18484 [facility] ROUTINE 7 [facility] ECG INC INC W/LEAST 12 LDS TRCG ONLY W/O I&R FUNDUS 60336 [facility] PHOTOGRAP 7 HY W/INTERPR ETATION & REPORT FLUORESCE 33998 [facility] IN ANGRPH 7 W/MULTIFR INDIRA I&R UNI/BI OPHTH 61857 SCIFRES SCIFRES MEDICAL 7 XM&EVAL COMPRE NEW PT 1/> VST RADEX 87541 [facility] ORO ESOPHAGUS 7 MEDICAL IMAGING ASS ECG 99258 [facility] ROUTINE 7 [facility] ECG INC INC W/LEAST 12 LDS TRCG ONLY W/O I&R ECG 59156 [facility] ROUTINE 7 PHYSICIAN ECG S GROUP W/LEAST 12 LDS I&R ONLY POLYSOM 95568 [facility] 6/>YRS 7 [facility] SLEEP 4/> INC INC ADDL AYO ATTND ANES 61090 [facility] 7 ANESTH INTESTINE OF THE BLUE ENDOSCOPY DISTAL DUODENUM ECG 46107 [facility] ROUTINE 7 PHYSICIAN ECG S GROUP W/LEAST 12 LDS I&R ONLY CV STRS 34516 [facility] TST 7 [facility] XERS&/OR INC INC RX CONT ECG TRCG ONLY ECG 38960 [facility] ROUTINE 6 [facility] ECG INC INC W/LEAST 12 LDS TRCG ONLY W/O I&R COLLECTIO 78393 [facility] N VENOUS 6 [facility] [place] [address] [facility] FREE 6 [facility] [place] [address] [facility] THYROID 6 [facility] STIMULATI INC INC NG HORMONE TSH CATH PLMT 11763 [facility] L HRT & 6 PHYSICIAN ARTS S GROUP W/NJX & ANGIO IMG S&I BASIC 82407 [facility] METABOLIC 6 [facility] PANEL INC INC CALCIUM TOTAL COLLECTIO 92987 [facility] N VENOUS 6 [facility] BLOOD INC INC VENIPUNCT URE RADIOLOGI 72030 [facility] C EXAM 6 [facility] CHEST 2 INC INC VIEWS FRONTAL&L ATERAL ECHO 93198 [facility] [place] 2D SERV W/WOM-MOD FOUNDATIO E COMPL N SPEC&COLR D INJECTION J1100 [facility] FRYMAN 6 PHYSICIAN EUG DEXAMETHO S GROUP SONE SODIUM PHOSPHATE 1 MG THERAPEUT 47522 [facility] IC 6 PHYSICIAN EUG PROPHYLAC S GROUP TIC/DX INJECTION SUBQ/IM THER 67245 [facility] PROPH/DX 6 [facility] NJX IV INC INC PUSH SINGLE/1S T SBST/DRUG BLOOD 88919 [facility] COUNT 6 [facility] COMPLETE INC INC AUTO&AUTO DIFRNTL WBC PROTHROMB 29168 [facility] IN TIME 6 [facility] INC INC BLOOD 17044 [facility] TYPING 6 [facility] SEROLOGIC INC INC RH (D) THROMBOPL 71547 [facility] ASTIN 6 [facility] TIME INC INC PARTIAL PLASMA/WH OLE BLOOD COMPREHEN 38968 [facility] SIVE 6 [facility] METABOLIC INC INC PANEL PRESSURIZ 39633 [facility] ED/NONPRE 6 [facility] SSURIZED INC INC INHALATIO N TREATMENT URNLS DIP 56417 [facility] 6 [facility] STICK/TAB INC INC LET REAGENT AUTO MICROSCOP Y BLOOD 97928 [facility] OCCULT 6 [facility] PEROXIDAS INC INC E ACTV QUAL FECES 1-3 SPEC LIPID 94197 [facility] PANEL 6 [facility] INC INC ANTIBODY 16485 [facility] SCREEN 6 [facility] RBC EACH INC INC SERUM TECHNIQUE BLOOD 89344 [facility] TYPING 6 [facility] SEROLOGIC INC INC ABO COLLECTIO 77831 [facility] N VENOUS 6 [facility] [place] [address] [place] KAMARI ABDOMEN & 6 MEDICAL MANAN PELVIS IMAGING W/O ASS CONTRAST MATERIAL RADIOLOGI 28112 [facility] C EXAM 6 [facility] CHEST 2 INC INC VIEWS FRONTAL&L ATERAL CULTURE 22320 [facility] BACTERIAL 6 [facility] BLOOD INC INC AEROBIC W/ID ISOLATES DUP-SCAN 46702 [place] ORO ALL XTR VEINS 6 MEDICAL IMAGING UNILATERA ASS L/LIMITED STUDY PRQ 14582 [facility] TRLUML 6 PHYSICIAN MAT CORONARY S GROUP STENT W/ANGIO ONE ART/BRNCH PRQ 25287 [facility] TRLUML 6 PHYSICIAN MAT CORONARY S GROUP ANGIOPLAS TY ONE ART/BRANC H BLOOD 01076 [facility] COUNT 6 [facility] COMPLETE INC INC AUTO&AUTO DIFRNTL WBC CATH PLMT 16028 [facility] L HRT & 6 [facility] ARTS INC INC W/NJX & ANGIO IMG S&I BASIC 07486 [facility] METABOLIC 6 [facility] PANEL INC INC CALCIUM TOTAL MYOCARDIA 05570 [facility] L SPECT 6 PHYSICIAN MAT MULTIPLE S GROUP STUDIES LIPID 81668 [facility] PANEL 6 [facility] INC INC BLOOD 79920 [facility] COUNT 6 [facility] COMPLETE INC INC AUTO&[place] [address] [facility] THYROID 6 [facility] STIMULATI [place] [address] [facility] THYROXINE 6 [facility] TOTAL INC INC COMPREHEN 73110 [facility] SIVE 6 [facility] METABOLIC INC INC PANEL ECG 10150 [facility] ROUTINE 6 [facility] ECG INC INC W/LEAST 12 LDS TRCG ONLY W/O I&R XTRNL ECG 22939 [facility] & 48 HR 5 [facility] RECORDING INC INC XTRNL ECG 44068 [facility] RHYTHM P W/I&R UP TO 48 HRS EXTERNAL 31052 [facility] ECG 5 [facility] SCANNING INC INC ANALYSIS REPORT ECG 58910 [facility] ROUTINE 5 [facility] ECG INC INC W/LEAST 12 LDS TRCG ONLY W/O I&R E-STIM G0283 [facility] 1/> AREAS 5 [facility] OTH THAN INC INC WND CARE PART TX PLAN THERAPEUT 08747 [facility] IC PX 1/> 5 [facility] AREAS INC INC EACH 15 MIN EXERCISES APPLICATI 36239 [facility] ON 5 [facility] MODALITY INC INC 1/> AREAS HOT/COLD PACKS APPL 93421 [facility] MODALITY 5 [facility] 1/> AREAS INC INC ULTRASOUN D EA 15 MIN MANUAL 34522 [facility] THERAPY 5 [facility] TQS 1/> INC INC REGIONS EACH 15 MINUTES APPLICATI 57659 [facility] ON 5 [facility] MODALITY INC INC 1/> AREAS HOT/COLD PACKS THERAPEUT 52176 [facility] IC PX 1/> 5 [facility] AREAS INC INC EACH 15 MIN EXERCISES E-STIM G0283 [facility] 1/> AREAS 5 [facility] OTH THAN INC INC WND CARE PART TX PLAN E-STIM G0283 [facility] 1/> AREAS 5 [facility] OTH THAN INC INC WND CARE PART TX PLAN THERAPEUT 36247 [facility] IC PX 1/> 5 [facility] AREAS INC INC EACH 15 MIN EXERCISES APPLICATI 04715 [facility] ON 5 [facility] MODALITY INC INC 1/> AREAS HOT/COLD PACKS MANUAL 57287 [facility] THERAPY 5 [facility] TQS 1/> INC INC REGIONS EACH 15 MINUTES MANUAL 87143 [facility] THERAPY 5 [facility] TQS 1/> INC INC REGIONS EACH 15 MINUTES APPLICATI 60484 [facility] ON 5 [facility] MODALITY INC INC 1/> AREAS HOT/COLD PACKS E-STIM G0283 [facility] 1/> AREAS 5 [facility] OTH THAN INC INC WND CARE PART TX PLAN E-STIM G0283 [facility] 1/> AREAS 5 [facility] OTH THAN INC INC WND CARE PART TX PLAN APPL 78144 [facility] MODALITY 5 [facility] 1/> AREAS INC INC TRACTION MECHANICA L APPLICATI 97179 [facility] ON 5 [facility] MODALITY INC INC 1/> AREAS HOT/COLD PACKS APPLICATI 33609 SP MALONEON ON 5 [facility] MODALITY INC INC 1/> AREAS HOT/COLD PACKS MANUAL 43930 [facility] THERAPY 5 [facility] TQS 1/> INC INC REGIONS EACH 15 MINUTES E-STIM G0283 [facility] 1/> AREAS 5 [facility] OTH THAN INC INC WND CARE PART TX PLAN THERAPEUT 13946 [facility] IC PX 1/> 5 [facility] AREAS INC INC EACH 15 MIN EXERCISES PHYSICAL 38756 SP PS THERAPY 5 [facility] EVALUATIO INC INC N RADEX 57014 [facility] TRA SPINE 5 [place] LUMBOSACR ORTHOPAED AL 2/3 ICS PLC VIEWS THERAPEUT 86781 SP JOL[facility] IC 5 [facility] DORAL TIC/DX INJECTION SUBQ/IM INJECTION J1885 SP JOLLEY 5 [facility] TROMETHAM INE PER 15 MG BLOOD 65314 [facility] COUNT 5 [facility] COMPLETE INC INC AUTO&[place] [address] [facility] THYROID 5 [facility] STIMULATI [place] [address] [facility] FREE [facility] THYROXINE INC INC COMPREHEN 10146 [facility] SIVE 5 [facility] METABOLIC INC INC PANEL COLLECTIO 75220 [facility] N VENOUS 5 [facility] BLOOD INC INC VENIPUNCT URE LIPID 48558 [facility] PANEL 5 [facility] INC INC DUP-SCAN 78430 [facility] XTR VEINS 5 [facility] INC INC UNILATERA L/LIMITED STUDY RADEX 60122 SP SP SPINE 5 [facility] LUMBOSACR INC INC AL MINIMUM 4 VIEWS RADEX 28505 [facility] SPINE 5 [place] LUMB[facility] ORTHOPAED AL 2/3 [facility] PLC VIEWS RADEX 70219 [facility] TRA SPINE 5 [place] LUMB[facility] ORTHOPAED AL 2/3 [facility] PLC VIEWS OPHTH 33016 [facility] 5 GRE GRE XM&EVAL COMPRHNSV ESTAB PT 1/> VISUAL 56692 [facility] XM 5 GRE GRE UNI/BI W/INTERP EXTENDED EXAM ECG 17458 [facility] ROUTINE 5 [facility] ECG INC INC W/LEAST 12 LDS TRCG ONLY W/O I&R COLLECTIO 64990 [facility] N VENOUS 5 [facility] BLOOD INC INC VENIPUNCT URE BASIC 34731 [facility] METABOLIC 5 [facility] PANEL INC INC CALCIUM TOTAL MRI 47797 [facility] TRA SPINAL 5 [place] CANAL ORTHOPAED LUMBAR ICS PLC W/O CONTRAST MATERIAL ECG 35802 [facility] ROUTINE 5 [facility] ECG INC INC W/LEAST 12 LDS TRCG ONLY W/O I&R ECG 84173 [facility] ROUTINE 5 [facility] ECG INC INC W/LEAST 12 LDS TRCG ONLY W/O I&[place] [address] [facility] PROSTATE 5 DIAGNOSTI DIAGNOSTI SPECIFIC CS CS ANTIGEN TOTAL URINLS 09961 A C FIELD AMB DIP 5 LILIANE SKAGGS STICK/TAB PSC LET REAGNT NON-AUTO MICRSCPY RADEX 99049 [place] [facility] SPINE 5 [facility] LUMBOSACR IMAGING AL 2/3 ASS VIEWS RADEX 51636 [place] [facility] SPINE 5 MEDICAL [facility] THORACIC IMAGING 2 VIEWS ASS COLONOSCO 94630 [facility] PY 5 [facility] W/BIOPSY INC INC SINGLE/MU LTIPLE ANES 83172 [facility] L[facility] 5 ANESTH SHE INTESTINE OF THE BLUE [place] [address] [facility], SERRANO SURG 5 [facility] PATHOLOGY GROSS&VAN ROSCOPIC EXAM CV STRS 54022 [facility] TST 5 CULAR MAT XERS&/OR CONSULTAN RX CONT TS O ECG I&R ONLY CV STRS 67743 [facility] TST 5 [facility] XERS&/OR INC INC RX CONT ECG TRCG ONLY ECHO 70614 SH[facility] SIDDIQI TTHRC R-T 5 MEDICAL 2D SERV W/WOM-MOD FOUNDATIO E COMPL N SPEC&COLR D ECG 84745 [facility] ROUTINE 5 [facility] ECG INC INC W/LEAST 12 LDS TRCG ONLY W/O I&R BLOOD 35368 A C FIELD AMB COUNT 5 LILIANE SKAGGS COMPLETE PSC AUTO&AUTO DIFRNTL WBC URINLS 71312 A C FIELD AMB DIP 5 LILIANE SKAGGS STICK/TAB PSC LET REAGNT NON-AUTO MICRSCPY INF AGENT 27913 [facility] DET 5 [facility] NUCLEIC INC INC ACID CLOSTRIDI UM AMP PROBE IADNA NOS 52019 [facility] 5 [facility] AMPLIFIED INC INC PROBE TQ EACH ORGANISM BLOOD 55200 [facility] OCCULT 5 [facility] PEROXIDAS INC INC E ACTV QUAL FECES 1-3 SPEC BIBLE READER STDY 53227 [facility] UNATND 4 [facility] W/HRT INC INC RATE/O2 SAT/[place]/ [place] [address] K[facility] KAMARI MAXILLOFA 4 MANAN MANAN CIAL W/O CONTRAST MATERIAL THERAPEUT 05535 FIELD AMB FIELD AMB IC 4 PROPHYLAC TIC/DX INJECTION SUBQ/IM INJECTION J1885 FIELD AMB FIELD AMB 4 KETOROLAC TROMETHAM INE PER 15 MG RADIOLOGI 93431 KAMARI KAMARI C EXAM 4 MANAN MANAN CHEST 2 VIEWS FRONTAL&L ATERAL DETERMINA 81714 [facility] TION 4 GRE GRE REFRACTIV E STATE OPHTH 34227 [facility] 4 GRE GRE XM&EVAL COMPRE NEW PT 1/> VST INJECTION A9576 [facility] 4 [facility] GADOTERID INC INC OL PROHANCE MULTIPACK PER ML CREATININ 69500 [facility] [place] BLOOD 4 [facility] INC INC MRI BRAIN 68603 [facility] BRAIN 4 [facility] STEM W/O INC INC W/[place] [address] [facility] UREA 4 [facility] NITROGEN INC INC QUANTITAT SIDDHARTH Encounters Encounter Start End Date Code Location Performer Type Date OFFICE 48221 [facility] 7 7 T VISIT 10 MINUTES OFFICE 65171 [facility] 7 T VISIT 25 MINUT[facility] OFFICE 09178 [facility] 7 7 PHYSICIAN T VISIT S GROUP 25 MINUTES [facility] SP - 7 7 [facility] SP - 7 7 [facility] T OFFICE 68773 [facility] 7 7 T NEW 45 MINUTES [facility]OSPITAL SP - 7 7 [facility] T OFF[facility] 54780 [facility] OUTPATI[facility] 7 7 PHYSICIAN T [facility]ISIT S GROUP 40 MINUTES [facility]OSPITAL SP - 7 7 [facility] SP - 7 7 [facility] T OFF[facility] 06574 [facility] FIN[facility]SE CON[facility]ULTAT 7 7 PHYSICIAN ION S GROUP NEW/ESTAB PATIENT 40 MIN OFFICE 44241 [facility] OUTPATIEN 7 7 PHYSICIAN T VISIT S GROUP 15 MINUTES [facility]OSP[facility] SP - 7 7 [facility] T OFF[facility] 29536 [facility] STONE OUTPATIEN 7 7 PHYSICIAN T VISIT S GROUP 25 MINUTES [facility]OSPITAL SP - 6 6 [facility] T OFFICE 92149 [facility] OUTPATIEN 6 6 PHYSICIAN T VISIT S GROUP 40 MINUTES OFFICE 29741 [facility] OUTPATIEN 6 6 PHYSICIAN EUG T VISIT S GROUP 25 MINUTES [facility]OSPITAL SP - 6 6 [facility] T OFFICE 85699 [facility] OUTPATIEN 6 6 PHYSICIAN EUG T VISIT S GROUP 25 MINUTES OFFICE 58843 [facility] OUTPATI[facility] 6 6 PHYSICIAN COOK T VISIT S GROUP 15 MINUTES EMERGENCY 29404 SP 6 6 [facility] DEPARTMEN INC T VISIT MODERATE SEVERITY EMERGENCY 61512 MIR[facility] PERRY IZZY 6 6 PHYSICIAN DEPARTMEN S, [facility] T VISIT HIGH/URGE NT SEVERITY HOSPITAL SP - 6 6 [facility] OUTPATIEN [facility] SP - 6 6 [facility] T OFFICE 94481 [facility] OUTPATIEN 6 6 PHYSICIAN EUG T VISIT S GROUP 15 MINUTES [facility]OSPITAL SP - 6 6 [facility] T OFFICE 82678 [facility] OUTPATIEN 6 6 PHYSICIAN EUG T VISIT S GROUP 15 MINUTES OFFICE 91341 [facility] OUTPATIEN 6 6 PHYSICIAN VAN T VISIT S GROUP 10 MINUTES [facility]OSPITAL SP - 6 6 [facility] SP [facility] 5 5 [facility] SP - 5 5 [facility] INC T OFFICE 14551 [facility]PAT[facility] 5 5 [place] [facility] MIN[facility] SP [facility] 5 5 [facility] T OFFICE 49518 [facility] SP - 5 5 [facility] T OFFICE 40980 [facility] [place] [facility] MIN[facility]ES OFFICE 19187 [facility] OUTPATIEN 5 5 [facility] 15 MINUTES [facility]OSP[facility] SP - 5 5 [facility] T OFFICE 29585 [facility] OUTPATIEN 5 5 [facility] 15 MINUTES [facility]OSPITAL SP - 5 5 [facility] T OFFICE 87306 [facility] [place] [facility] MIN[facility]ES OFFICE 71736 [facility] [place] [facility] MINUTES EMERGENCY 64768 MIRIAM Rashid 5 5 [facility]YSIC[facility] DEPARTMEN S, PLL T VISIT MODERATE SEVERITY [facility]OSPITAL SP - 5 5 [facility] T EMERGENCY 85883 SP 5 5 [facility] DE[facility] T VISIT LOW/MODER SEVERITY [facility]OSPITAL SP [facility] 5 5 [facility] SP - 5 5 [facility] T OFFICE 85650 [facility] [place] [facility] SP - 5 5 [facility] T OFFICE 34017 [facility] 5 5 [place] [facility] [facility] NEW/ESTAB [facility] PATIENT 40 MIN [facility] SP - 5 5 [facility] OUT[facility] T OFFICE 10782 [facility]OLINA [facility] OUTPATIEN 5 5 LILIANE SKAGGS T VISIT PSC 15 MINUTES EMERGENCY [id number] MIRIAM AGARWAL 5 5 PHYSIC[facility] T VISIT HIGH/URGE NT SEVERITY OFFICE 25738 [facility] FIN[facility] TOD OUTPATIEN 5 5 PHYSICIAN T VISIT S GROUP 15 MINUTES [facility]OSP[facility] SP - 5 5 [facility] OFFICE 51251 [facility] OUTPATIEN 5 5 PHYSICIAN EUG T VISIT S GROUP 15 MINUTES [facility]OSP[facility] SP - 5 5 [facility] SP - 5 [facility] T OFFICE 10262 [facility] FIN[facility] TOD CONSULTAT 5 5 PHYSICIAN ION S GROUP NEW/ESTAB PATIENT 60 MIN OFFICE 74971 Gilberto Lazo FIELD AMB OUTPATIEN 5 5 LILIANE SKAGGS T VISIT PSC 15 MINUTES HOSPITAL SP - 5 5 [facility] - 4 4 [facility] T OFFICE 86543 BLAYNE CISNEROS OUTPATIEN 4 4 VAN VAN T VISIT 15 MINUTES [facility]OSPITAL SP - 4 4 [facility] T OFFICE 77628 MONGIARDO MONGIARDO CONSULTAT 4 4 FRA FRA ION NEW/ESTAB PATIENT 40 MIN OFFICE 20209 FIELD AMB FIELD AMB OUTPATIEN 4 4 T VISIT 15 MINUTES EMERGENCY 64921 ALFARIS ALFARIS DEPT [address] [facility] VISIT HIGH SEVERITY& THREAT FUNCJ OFFICE 02216 FIELD AMB FIELD AMB OUTPATIEN 4 4 T VISIT 15 MINUTES EMERGENCY 69181 ARUN ESME ARUN ESME 4 4 DEPARTMEN T VISIT MODERATE SEVERITY OFFICE 24982 [facility] OUT[facility] 4 4 PHYSICIAN T VISIT S GROUP 10 MINUTES OFFICE 60866 FIELD AMB FIELD AMB OUTPATIEN 4 4 T VISIT 15 MINUTES [facility] - 4 4 [facility] T OFFICE 31198 FIELD AMB FIELD AMB OUTPATIEN 4 4 T NEW 20 MINUTES OFFICE 48642 [facility] T[facility]IBIO OUTPATIEN 4 4 T NEW 30 MINUTES
--- OUTSIDE RECORDS SUMMARY | 2017-03-06 01:51 | External Medical Summary Rpt | CCD ---
Demographics Preferred Language Mohawk Marital Status Unknown Syn[employer] Affiliation Unknown Race Unknown Ethnic Group Unknown Author Author [facility] Address Unknown Phone Immunization No patient found.
--- OUTSIDE RECORDS SUMMARY | 2017-03-06 01:51 | External Medical Summary Rpt | CCD ---
Demographics Preferred Language Greek Marital Status Unknown Faith Affiliation Unknown Race Unknown Ethnic Group Unknown Author Author [facility] Address Unknown Phone Immunization No patient found.
--- OUTSIDE RECORDS SUMMARY | 2017-03-06 01:52 | External Medical Summary Rpt ---
Author Author ELROYSHANTANU Leger, [employer] Organization [employer] Address Unknown Phone Unavailable Payers Section Payer Plan Name Group ID Member ID Coverage Coverage Start End Date Date SELF-PAY SP 0 No No No informati informati informati on in on in on in source source source data data data Results Lipid 1996 panel in Serum or Plasma Observa Value Referen Units Interpr Notes Date tion ce etation Range Cholester < 200 mg/dL High No October 14 ol informati 2016 7:17 [Moles/vo on in AM lume] in source Unspecifi data ed specimen Cholester 40 - 60 MG/DL High No October 14 ol in HDL informati 2016 7:17 on in AM [Mass/vol source ume] in data Serum or Plasma Cholester 0 - 130 mg/dL Normal No October 14 ol in LDL informati 2016 7:17 on in AM [Mass/vol source ume] in data Serum or Plasma by calculati on Triglycer 30 - 200 mg/dL Normal No October 14 brady informati 2016 7:17 [Moles/vo on in AM lume] in source Serum or data Plasma Cholester 0 - 40 No Normal No October 14 ol in informati informati 2017 7:17 VLDL on in on in AM [Mass/vol source source ume] in data data Serum or Plasma Hepatic function 2000 panel in Serum or Plasma Observa Value Referen Units Interpr Notes Date tion ce etation Range Albumin 3.4 - 5.0 gm/dL Normal No October 14 [Mass/vol informati 2017 7:17 ume] in on in AM Serum or source Plasma data Alkaline 46 - 116 U/L High No October 14 phosphata informati 2016 7:17 se on in AM [Enzymati source c data activity/ volume] in Serum or Plasma Bilirubin 0.0 - 0.2 mg/dL Normal No October 14 .direct informati 2016 7:17 [Mass/vol on in AM ume] in source Serum or data Plasma Bilirubin 0 - 0.9 mg/dL Normal No October 14 .indirect informati 2016 7:17 on in AM [Mass/vol source ume] in data Serum or Plasma Bilirubin 0.2 - 1.0 mg/dL Normal No October 14 .total informati 2016 7:17 [Mass/vol on in AM ume] in source Serum or data Plasma Aspartate 15 - 37 U/L Normal No October 14 informati 2016 7:17 aminotran on in AM sferase source [Enzymati data c activity/ volume] in Serum or Plasma Alanine 12 - 78 U/L Normal No October 14 aminotran informati 2016 7:17 sferase on in AM [Enzymati source c data activity/ volume] in Serum or Plasma Protein 6.4 - 8.2 gm/dL Normal No October 14 [Mass/vol informati 2016 7:17 ume] in on in AM Serum or source Plasma data CHEST LAT/PA Observa Value Referen Units Interpr Notes Date tion ce etation Range TEXT Name: No No No No Aug 03 DIAGNOS MALONE, informa informa informa informa 2011 IS TAJ tion in tion in tion in tion in 12:22 BATTERY VIKTORIA source source source source PM data data data data Phys: LEONEL CABELLO NP : [id number] Age: 50 Sex: M Acct: [id number] Loc: M LAB Exam Date: Status: REG REF Radiolo gy No: Unit No: [id number] XAM# TYPE/EX AM RESULT0 [id number] RAD/KRISTEN ST LAT/PA Examina tion: PA and lateral chest 2 views. Clinica l Informa tion: Cough. Finding s: The exam shows a normal soft tissue and bony thorax. The heart size and pulmona ry vascula rity are normal. There are no hilar or mediast inal masses. The lungs mildly lucent. The lungs are clear of acute alveola r disease . Impress ion: 1. No acute disease . REPORT SIGNED IN OTHER VENDOR SYSTEM Reporte d By: NIMA MICHAELS CC: LEONEL CABELLO NP Technol ogist: BORA KATZ Transcr ibed Date/Ti me: 012 (1219) Transcr iptioni st: n/a Printed Date/Ti me: (0828) PAGE 1 Signed Report CKMB Observa Value Referen Units Interpr Notes Date tion ce etation Range CKMB 0.2 0.0 - NG/ML Normal No Jul 13 5.0 informa 2011 tion in 1:01 PM source data CPK Observa Value Referen Units Interpr Notes Date tion ce etation Range CPK 74 26.0 - U/L Normal No Jul 13 174.0 informa 2011 tion in 1:01 PM source data CMP Observa Value Referen Units Interpr Notes Date tion ce etation Range NA 144.0 136.0 - MMOL/L Normal No Jul 13 145.0 informa 2011 tion in 1:01 PM source data K 4.0 3.4 - mEq/L Normal No Jul 13 5.1 informa 2011 tion in 1:01 PM source data CL 107.0 98.0 - MMOL/L Normal No Jul 13 107.0 informa 2011 tion in 1:01 PM source data CO2 30.0 20.0 - mEq/L Normal No Jul 13 30.0 informa 2011 tion in 1:01 PM source data GL 96.0 74.0 - MG/DL Normal No Jul 13 106.0 informa 2011 tion in 1:01 PM source data BUN 14.0 6.0 - MG/DL Normal No Jul 13 20.0 informa 2011 tion in 1:01 PM source data CR 0.8 0.4 - MG/DL Normal No Jul 13 1.20 informa 2011 tion in 1:01 PM source data GFR 108 >59 ML/MIN Normal No Jul 13 inform2011 tion in 1:01 PM source data CA 9.8 8.5 - MG/DL Normal No Jul 13 10.5 informa 2011 tion in 1:01 PM source data TP 7.30 6.40 - G/DL Normal No Jul 13 8.30 informa 2011 tion in 1:01 PM source data ALB 4.6 3.4 - G/DL Normal No Jul 13 4.8 informa 2011 tion in 1:01 PM source data ALP 92.0 25.0 - U/L Normal No Jul 13 100.0 informa 2011 tion in 1:01 PM source data ALT 14.0 4.0 - U/L Normal No Jul 13 36.0 informa 2011 tion in 1:01 PM source data AST 24.0 8.0 - U/L Normal No Aug 03 33.0 informa 2011 tion in 1:01 PM source data TBIL 0.4 0.3 - MG/DL Normal No Aug 03 1.2 informa 2011 tion in 1:01 PM source data AG 1.7 0.8 - RATIO Normal No Aug 03 2.0 inform2011 tion in 1:01 PM source data BUNCR 17.5 6.0 - RATIO Normal No Aug 03 25.0 informa 2011 tion in 1:01 PM source data HEM - No No Normal No Aug 03 informa informa informa 2011 tion in tion in tion in 1:01 PM source source source data data data ICT - No No Normal No Aug 03 informa informa informa 2011 tion in tion in tion in 1:01 PM source source source data data data LIPEMIA - No No Normal No Aug 03 informa informa informa 2011 tion in tion in tion in 1:01 PM source source source data data data
--- OUTSIDE RECORDS SUMMARY | 2017-03-06 01:52 | External Medical Summary Rpt ---
[...] : 959 Age: 50 Sex: M Acct: [id number] Loc: M LAB Exam Date: Status: REG REF Radiolo gy No: Unit No: [id number] XAM# TYPE/EX AM RESULT0 [id number] RAD/KRISTEN ST LAT/PA Examina tion: PA [...] Transcr iptioni st: n/a Printed Date/Ti me: (3170) PAGE 1 Signed Report [facility]MB Observa Value [...]
== END 2017-03-01 09:06 | disposition home or self-care (01) ==
LOC: ER 08:42
DX: R05 Cough (principal); Z87.891 Personal history of nicotine dependence

== ENCOUNTER 2017-03-17 10:53 | Emergency (ER) | payer MEDICAID ==
[~2017-03-17] VITALS: Ht 167.6 cm; Wt 63.5 kg
[~2017-03-17 10:53] MED LIST changes: +AVPAK AZITHROM250 MG PO
--- OUTSIDE RECORDS SUMMARY | 2017-03-17 11:08 | External Medical Summary Rpt | CCD ---
Author Author , RIO Organization RIO Address Unknown Phone [email or web address] Care Team Providers Care Emergency Care Attendant Name Role Phone A Violet MOMIN MD PSC, Gilberto Unavailable Unavailable Violet MOMIN MD PSC ALFARIS MOH, ALFARIS Unavailable Unavailable MOH ALFARIS MOH, ALFARIS Unavailable Unavailable MOH BEINEKE AVLENTE, BEINEKE Unavailable Unavailable VALENTE PK L, PK L Unavailable Unavailable ORO ALL, ORO ALL Unavailable Unavailable KINGSLEY CATARINO, KINGSLEY CATARINO Unavailable Unavailable KINGSLEY CATARINO, KINGSLEY CATARINO Unavailable Unavailable [facility] Unavailable [facility]available [facility], [facility] Un[facility] Unavailable Unavailable [...] Unavailable Unavailable [facility] Unavailable Unavailable [facility], [facility], Unavailable Unavailable [facility] PERRY IZZY, PERRY IZZY Unavailable Unavailable GARNETT TRA, GARNETT TRA Unavailable Unavailable [facility] KOTTCASIMIRO AL[facility], RYAN Unavailable Unavailable [facility] Unavailable [...] 2016 Problems Code Diagnosis DOS Provider Status I10 ESSENTIAL 02-09-2017 [facility] PRIMARY PHYSICIANS HYPERTENSIO GROUP N I2510 ASHD [place]OX[place] 02-09-2017 [facility] 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 I4510 UNSPECIFIED 02-09-2017 [facility] RIGHT PHYSICIANS BUNDLE-BRAN GROUP CH BLOCK K449 DIAPHRAGMAT 02-09-2017 [facility] IC HERNIA PHYSICIANS W/O GROUP OBSTRUCTION OR GANGRENE Z955 PRESENCE OF 02-09-2017 [facility] CORONARY PHYSICIANS ANGIOPLASTY GROUP IMPLANT & GRAFT U72950 HYPERTENSIV 01-14-2017 [facility] E RETINOPATHY BILATERAL [id number] NONEXU 01-08-2017 [facility] AGE-REL MACULAR DEG LT EYE INTRMD DRY STG [id number] EXUDATIVE 01-08-2017 [facility] AGE-RELATED MAC DEG RT EYE INACTV CNV E785 HYPERLIPIDE 11-10-2016 [facility] KEVIN PHYSICIANS UNSPECIFIED GROUP G4733 OBSTRUCTIVE 11-10-2016 [facility] SLEEP [facility]NE[facility] ADULT INC PEDIATRIC I119 HYPERTENSIV 11-10-2016 [facility] E HEART PHYSICIANS DISEASE GROUP WITHOUT HEART FAILURE K219 GASTRO-ESOP 11-10-2016 [facility] H REFLUX PHYSICIANS DISEASE GROUP WITHOUT ESOPHAGITIS [id number] NONEXUD 10-09-2016 [facility] AGE-REL MAC DEGEN TRU INTERMED DRY STAGE H524 PRESBYOPIA 09-11-2016 [facility] R0602 SHORTNESS 07-31-2016 SP OF BREATH [facility] INC R079 CHEST PAIN 07-31-2016 [facility] R4702 DYSPHASIA 07-31-2016 [facility] Z720 TOBACCO USE 07-28-2016 [facility] INC R0681 APNEA NOT 07-22-2016 SP ELSEWHERE [facility] CLASSIFIED INC K635 POLYP OF 07-09-2016 [facility] COLON ANESTH OF THE BLUE K921 MELENA 07-09-2016 [facility] ANESTH [facility] K625 HEMORRHAGE 06-24-2016 [facility] OF ANUS AND PHYSICIANS RECTUM GROUP [id number] PERSONAL 06-24-2016 [facility] HISTORY OF PHYSICIANS COLONIC GROUP POLYPS R001 BRADYCARDIA 06-12-2016 [facility] PHYSICIANS UNSPECIFIED GROUP J0100 ACUTE 05-26-2016 [facility] MAXILLARY PHYSICIANS SINUSITIS GROUP UNSPECIFIED R531 WEAKNESS 05-26-2016 [facility] R5383 OTHER 05-26-2016 SP FATIGUE [facility] INC R9431 ABNORMAL 05-26-2016 SP ELECTROCARD [facility] IOGRAM INC R55 SYNCOPE AND 05-19-2016 [facility] COLLAPSE PHYSICIANS GROUP I208 OTHER FORMS 04-29-2016 [facility] OF ANGINA PHYSICIANS PECTORIS GROUP E62706 ASHD TUN[place]-BILOXI 04-29-2016 [facility] COR ART PHYSICIANS W/OTH FORMS GROUP ANGINA PECTORIS I209 ANGINA 04-24-2016 [facility] UNSPECIFIED IMAGING ASS I340 NONRHEUMATI 04-24-2016 [facility] INSUFFICIEN CY J209 ACUTE 01-28-2016 [facility] BRONCHITIS PHYSICIANS UNSPECIFIED GROUP J329 CHRONIC 01-18-2016 [facility] SINUSITIS PHYSICIANS UNSPECIFIED GROUP J40 BRONCHITIS 01-13-2016 [facility], SPECIFIED PLLC ACUTE OR CHRONIC K828 OTHER 01-13-2016 [facility] SPECIFIED MEDICAL DISEASES OF IMAGING ASS GALLBLADDER K922 GASTROINTES 01-13-2016 [facility] CADE [facility], HEMORRHAGE PLLC UNSPECIFIED R05 COUGH 01-13-2016 [facility] Z8551 PERSONAL 01-13-2016 [facility] HISTORY [facility]ICAL MALIGNANT IMAGING ASS NEOPLASM OF BLADDER W40148 PAIN IN 01-02-2016 [facility] RIGHT ARM [facility]ICAL [facility] ASS K65070 [facility] TUNICA-BILOXI 12-24-2015 SP COR ARTREY [facility] W/UNS INC ANGINA PECTORIS R9439 ABNORMAL 12-24-2015 SP RESULT OTH [facility] CARDIOVASCU INC LR FUNCTION STUDY H6690 OTITIS 11-13-2015 [facility] MEDIA PHYSICIANS UNSPECIFIED GROUP UNSPECIFIED EAR G4730 SLEEP APNEA 09-18-2015 [facility] PHYSICIANS UNSPECIFIED GROUP J3489 OTHER 09-18-2015 [facility] SPECIFIED PHYSICIANS DISORDERS GROUP NOSE AND NASAL SINUSES M5126 OTH 05-09-2015 [facility] [place] [facility] RAL DISC S PLC DISPLACEMEN T LUMBAR RGN M549 DORSALGIA 04-23-2015 SP UNSPECIFIED [facility] INC M25578 PAIN IN LEG 04-23-2015 [facility] UNSPECIFIED INC G67239 PAIN IN 04-16-2015 SP LEFT [facility] M545 LOW BACK 04-01-2015 [facility] [place] PAIN [facility] PLC [id number] OTH FX 1ST 04-01-2015 [facility] [place] [facility] SUBSEQUENT S PLC ENC FX RTN HLNG C679 MALIGNANT 03-22-2015 SP NEOPLASM OF [facility] BLADDER INC UNSPECIFIED E041 NONTOXIC 03-22-2015 SP SINGLE [facility] THYROID INC NODULE W12944 PAIN IN 03-21-2015 [facility]G [facility] R600 LOCALIZED 03-21-2015 [place] [facility] 8054 CLOS FX 01-17-2015 [facility] [place] [facility]UMB [facility] VERTEBRA S PLC W/O MENTION SP CORD INJURY 9895 TOXIC 12-13-2014 [facility] EFFECT [facility] PHYSICIANS, [facility] V1582 PERS HX 12-13-2014 SP TOBACCO USE [facility] PRESENTING INC [facility] 43410 BORDERLINE 12-06-2014 [facility] GLAUC OPEN GRE ANGLE BL FINDINGS LOW RSK 63730 OTHER 12-06-2014 [facility] VISUAL GRE DISTORTIONS AND ENTOPTIC PHENOMENA 89051 OTHER 12-06-2014 [facility] VITREOUS GRE OPACITIES 4019 UNSPECIFIED 11-20-2014 SP ESSENTIAL [facility] HYPERTENSIO INC N 10004 OTHER 11-20-2014 SP SPECIFIED [facility] CARDIAC INC DYSRHYTHMIA S 77031 CHEST PAIN 11-20-2014 SP UNSPECIFIED [facility] INC 7242 LUMBAGO 11-12-2014 [facility] [place] [facility] 47245 HEMATURIA 10-11-2014 [facility] UNSPECIFIED DIAGNOSTICS 7245 UNSPECIFIED 10-09-2014 [facility]HE [facility] 0093 DIARRHEA OF 09-24-2014 [facility] PRESUMED PHYSICIANS INFECTIOUS GROUP ORIGIN 2113 BENIGN 09-24-2014 [facility] NEOPLASM OF PHYSICIANS COLON GROUP 5781 BLOOD IN 09-24-2014 [facility] STOOL PHYSICIANS GROUP 06735 ABDOMINAL 09-24-2014 [facility] PAIN OTHER PHYSICIANS SPECIFIED GROUP SITE 15493 DIVERTICULO 09-14-2014 [facility] SIS OF PHYSICIANS COLON GROUP 55697 DIARRHEA 09-14-2014 [facility] PHYSICIANS GROUP 33436 ABDOMINAL 09-14-2014 [facility] PAIN, PHYSICIANS UNSPECIFIED GROUP SITE 4619 ACUTE 08-27-2014 [facility] SINUSITIS, PHYSICIANS UNSPECIFIED GROUP 412 OLD 07-19-2014 [facility] [place] [address] ATRIAL 07-19-2014 [facility] [place]IB[place] [address] NONSPECIFIC 07-19-2014 [facility] ABNORMAL LAR ELECTROCARD CONSULTANTS IOGRAM O 5693 HEMORRHAGE 07-03-2014 Gilberto MOMIN OF RECTUM PSC AND ANUS 13152 UNS SHIGA 06-28-2014 SP TOXIN-PRODU [facility] CING E COLI INC INF CLASS ELSW 05040 OBSTRUCTIVE 03-05-2014 SP SLEEP [facility] APNEA INC 460 ACUTE 01-06-2014 [facility] NASOPHARYNG ITIS 4739 UNSPECIFIED 01-05-2014 SP SINUSITIS [facility] INC 30997 ACOUSTIC 12-01-2013 [facility] TRAUMA TO FRA EAR 21611 UNSPECIFIED 12-01-2013 [facility] TINNITUS FRA 3899 UNSPECIFIED 12-01-2013 [facility] HEARING FRA LOSS 7336 TIETZES 11-09-2013 FIELD [facility] DISEASE 17656 PAINFUL 11-06-2013 [facility] RESPIRATION 68025 ESOPHAGEAL 11-02-2013 FIELD AM[facility] REFLUX 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 4659 ACUTE URIS 10-13-2013 AR[facility] ESME OF UNSPECIFIED SITE 496 CHRONIC 10-13-2013 ARUN ESME AIRWAY OBSTRUCTION NEC 3670 HYPERMETROP 10-07-2013 [facility] IA GRE 7840 HEADACHE 07-05-2013 SP [facility] INC 38926 OTHER 07-03-2013 FIELD AMB MALAISE AND FATIGUE 4660 ACUTE 06-03-2013 [facility] TORIBIO BRONCHITIS Medications Na ND Rx Da Fi Fi Am Da Di Ph RX Ph St me C No te ll ll ou ys ag ar # ys at rm s nt no ma ic us Or Da si cy ia de te s n re d OM 68 09 10 30 30 00 CL Ac EP 46 -1 -1 .0 00 IN ti RA 20 9- 3- 00 00 IC ve ZO 39 20 20 43 LE 71 17 17 18 PH [address] MA CY 40 MG CA PS UL E CL 00 09 10 30 30 00 CL Ac OP 37 -1 -1 .0 00 IN ti ID 83 9- 3- 00 00 IC ve OG 62 20 20 43 RE 70 17 17 18 PH L 5 64 AR 75 MA CY MG TA BL ET LO 00 09 10 30 30 00 CL Ac SA 78 -1 -1 .0 00 IN ti RT 15 9- 3- 00 00 IC ve AN 20 20 20 43 -H 69 [address] 2 57 AR Z MA 50 CY -1 2. 5 MG TA B CL 13 08 09 30 30 00 [...] 00 IN ti 90 9- - 00 00 IC ve TA 00 20 20 43 TI 41 17 17 44 PH N 5 21 AR 10 MA CY MG TA BL ET LO 00 07 08 30 30 00 CL Ac SA 78 -1 -1 .0 00 IN ti RT 15 9- 1- 00 00 IC ve AN 20 20 20 43 -H 69 [address] 2 57 AR Z MA 50 CY -1 2. 5 MG TA B CL 13 06 07 30 30 00 [...] 10 MA CY MG TA BL ET FL 50 06 07 16 30 00 CL Ac UT 38 -2 -1 .0 00 IN ti IC 30 1- 4- 00 00 IC ve 70 20 20 43 ON 01 17 17 45 PH E 6 97 AR UT MA OP CY 50 MC G SP [...] CY IL 50 0 MG TA B UT 00 01 01 10 5 00 CL [...] 17 57 PH E 9 37 AR UT MA OP CY 50 MC G SP [...] Normal complet 012 RATIO ed 11:40 TBIL 0.4 0.3-1.2 Normal complet 012 MG/DL ed 11:40 AST 24.0 8.0-33. Normal complet 012 U/L 0 ed 11:40 ALT 2 14.0 4.0-36. Normal complet 012 U/L 0 ed 11:40 ALP 92.0 25.0-10 Normal complet 012 U/L 0.0 ed 11:40 ALB 08-03- 4.6 3.4-4.8 Normal complet 012 G/DL ed 11:40 TP 7.30 6.40-8. Normal complet 012 G/DL 30 ed 11:40 CA 9.8 8.5-10. Normal complet 012 MG/DL 5 ed 11:40 GFR 108 >59 Normal complet 012 ML/MIN ed 11:40 CR 0.8 0.4-1.2 Normal complet 012 MG/DL 0 ed 11:40 BUN 14.0 6.0-20. Normal complet 012 MG/DL 0 ed 11:40 GL 96.0 74.0-10 Normal complet 012 MG/DL 6.0 ed 11:40 CO2 30.0 20.0-30 Normal complet 012 mEq/L .0 ed 11:40 CL 107.0 98.0-10 Normal complet 012 MMOL/L 7.0 ed 11:40 K 4.0 3.4-5.1 Normal complet 012 mEq/L ed 11:40 NA 144.0 136.0-1 Normal complet 012 MMOL/L 45.0 ed 11:40 Procedures Procedure DOS Code Location Performer Comment ECG 82964 [facility] ROUTINE 7 PHYSICIAN ECG S GROUP W/LEAST 12 LDS I&R ONLY FUNDUS 74155 [facility] 7 HY W/INTERPR ETATION & REPORT ECG 89048 [facility] ROUTINE 7 [facility] ECG INC INC W/LEAST 12 LDS TRCG ONLY W/O I&R COLLECTIO 67154 [facility] N VENOUS 7 [facility] BLOOD INC INC VENIPUNCT URE LIPID 80104 SP SP PANEL 7 [facility] INC INC HEPATIC 28559 [facility] FUNCTION 7 [facility] PANEL INC INC ECG 87617 [facility] ROUTINE 7 [facility] ECG INC INC W/LEAST 12 LDS TRCG ONLY W/O I&R FLUORESCE 63165 [facility] IN ANGRPH 7 W/MULTIFR INDIRA I&R UNI/BI FUNDUS 73373 [facility] PHOTOGRAP 7 HY W/INTERPR ETATION & REPORT OPHTH 71793 [facility] SCIFRES MEDICAL 7 XM&EVAL COMPRE NEW PT 1/> VST RADEX 37870 [facility] ESOPHAGUS 7 [facility] INC INC ECG 48003 [facility] ROUTINE 7 [facility] ECG INC INC W/LEAST 12 LDS TRCG ONLY W/O I&R ECG 76882 [facility] ROUTINE 7 PHYSICIAN ECG S GROUP W/LEAST 12 LDS I&R ONLY POLYSOM 79637 SP MALONEON 6/>YRS 7 [facility] SLEEP 4/> INC INC ADDL AYO ATTND ANES 70036 [facility] 7 ANESTH INTESTINE OF THE BLUE ENDOSCOPY DISTAL DUODENUM ECG 20313 [facility] MICHELLE ROUTINE 7 PHYSICIAN ECG S GROUP W/LEAST 12 LDS I&R ONLY CV STRS 20809 [facility] TST 7 [facility] XERS&/OR INC INC RX CONT ECG TRCG ONLY ECG 70657 [facility] ROUTINE 6 [facility] ECG INC INC W/LEAST 12 LDS TRCG ONLY W/O I&R COLLECTIO 38768 [facility] N VENOUS 6 [facility] [place] [address] [facility] FREE 6 [facility] [place] [address] [facility] THYROID 6 [facility] STIMULATI INC INC NG HORMONE TSH CATH PLMT 44219 [facility] MICHELLE L HRT & 6 PHYSICIAN ARTS S GROUP W/NJX & ANGIO IMG S&I BASIC 12622 [facility] METABOLIC 6 [facility] PANEL INC INC CALCIUM TOTAL RADIOLOGI 80442 [facility] C EXAM 6 [facility] CHEST 2 INC INC VIEWS FRONTAL&L ATERAL COLLECTIO 62354 [facility] N VENOUS 6 [facility] BLOOD INC INC VENIPUNCT URE ECHO 61657 [facility] R[facility]T 6 [facility] [place] 2D SERV W/WOM-MOD FOUNDATIO E COMPL N SPEC&COLR D THERAPEUT 13258 [facility] FRYMAN IC 6 PHYSICIAN EUG PROPHYLAC S GROUP TIC/DX INJECTION SUBQ/IM INJECTION J1100 [facility] FRYMAN 6 PHYSICIAN EUG DEXAMETHO S GROUP SONE SODIUM PHOSPHATE 1 MG THER 96755 [facility] PROPH/DX 6 [facility] NJX IV INC INC PUSH SINGLE/1S T SBST/[place] [address] [facility] ABDOMEN & 6 [facility] PELVIS INC INC W/O CONTRAST MATERIAL THROMBOPL 52102 [facility] ASTIN 6 [facility] TIME INC INC PARTIAL PLASMA/WH OLE BLOOD BLOOD 24942 [facility] TYPING 6 [facility] SEROLOGIC INC INC RH (D) PROTHROMB 56797 [facility] IN TIME 6 [facility] INC INC PRESSURIZ 19219 [facility] ED/NONPRE 6 [facility] SSURIZED INC INC INHALATIO N TREATMENT LIPID 68999 [facility] PANEL 6 [facility] INC INC COLLECTIO 47985 [facility] N VENOUS 6 [facility] BLOOD INC INC VENIPUNCT URE COMPREHEN 74634 [facility] SIVE 6 [facility] METABOLIC INC INC PANEL URNLS DIP 77067 [facility] 6 [facility] STICK/TAB INC INC LET REAGENT AUTO MICROSCOP Y BLOOD 46551 [facility] OCCULT 6 [facility] PEROXIDAS INC INC E ACTV QUAL FECES 1-3 SPEC BLOOD 50190 [facility] COUNT 6 [facility] COMPLETE INC INC AUTO&AUTO DIFRNTL WBC CULTURE 59426 [facility] BACTERIAL 6 [facility] BLOOD INC INC AEROBIC W/ID ISOLATES ANTIBODY 24024 [facility] SCREEN 6 [facility] RBC EACH INC INC SERUM TECHNIQUE BLOOD 88037 [facility] TYPING 6 [facility] SEROLOGIC INC INC ABO RADIOLOGI 91675 [facility] KAMARI C EXAM 6 MEDICAL MANAN CHEST 2 IMAGING VIEWS ASS FRONTAL&L ATERAL DUP-SCAN 10827 [facility] ALL XTR VEINS 6 MEDICAL IMAGING UNILATERA ASS L/LIMITED STUDY PRQ 97061 [facility] MICHELLE TRLUML 6 PHYSICIAN MAT CORONARY S GROUP ANGIOPLAS TY ONE ART/[place] PRQ [address] [facility] MICHELLE TRLUML 6 PHYSICIAN MAT CORONARY S GROUP STENT W/ANGIO ONE ART/BRNCH BLOOD 77852 [facility] COUNT 6 [facility] COMPLETE INC INC AUTO&AUTO DIFRNTL WBC BASIC 51644 [facility] METABOLIC 6 [facility] PANEL INC INC CALCIUM TOTAL CATH PLMT 80982 [facility] MICHELLE L HRT & 6 PHYSICIAN MAT ARTS S GROUP W/NJX & ANGIO IMG S&I MYOCARDIA 49274 [facility] MICHELLE L SPECT 6 PHYSICIAN MAT MULTIPLE S GROUP STUDIES LIPID 60701 [facility] PANEL 6 [facility] INC INC COMPREHEN 85314 [facility] SIVE 6 [facility] METABOLIC INC INC PANEL BLOOD 12708 [facility] COUNT 6 [facility] COMPLETE INC INC AUTO&[place] [address] [facility] THYROID 6 [facility] STIMULATI [place] [address] [facility] THYROXINE 6 [facility] TOTAL INC INC ECG 42855 [facility] ROUTINE 6 [facility] ECG INC INC W/LEAST 12 LDS TRCG ONLY W/O I&R EXTERNAL 16475 [facility] ECG 5 [facility] SCANNING INC INC ANALYSIS REPORT XTRNL ECG 02835 SP WADE JR 5 [facility] S RHYTHM P W/I&R UP TO 48 HRS XTRNL ECG 21064 [facility] & 48 HR 5 [facility] RECORDING INC INC ECG 86041 [facility] ROUTINE 5 [facility] ECG INC INC W/LEAST 12 LDS TRCG ONLY W/O I&R THERAPEUT 75845 [facility] IC PX 1/> 5 [facility] AREAS INC INC EACH 15 MIN EXERCISES E-STIM G0283 [facility] 1/> AREAS 5 [facility] OTH THAN INC INC WND CARE PART TX PLAN APPLICATI 34439 [facility] ON 5 [facility] MODALITY INC INC 1/> AREAS HOT/COLD PACKS APPL 53940 [facility] MODALITY 5 [facility] 1/> AREAS INC INC ULTRASOUN D EA 15 MIN MANUAL 79271 [facility] THERAPY 5 [facility] TQS 1/> INC INC REGIONS EACH 15 MINUTES APPLICATI 26094 SP [facility] ON 5 [facility] MODALITY INC INC 1/> AREAS HOT/COLD PACKS E-STIM G0283 [facility] 1/> AREAS 5 [facility] OTH THAN INC INC WND CARE PART TX PLAN THERAPEUT 10307 [facility] IC PX 1/> 5 [facility] AREAS INC INC EACH 15 MIN EXERCISES THERAPEUT 40537 [facility] IC PX 1/> 5 [facility] AREAS INC INC EACH 15 MIN EXERCISES E-STIM G0283 [facility] 1/> AREAS 5 [facility] OTH THAN INC INC WND CARE PART TX PLAN APPLICATI 44177 [facility] ON 5 [facility] MODALITY INC INC 1/> AREAS HOT/COLD PACKS MANUAL 77431 [facility] THERAPY 5 [facility] TQS 1/> INC INC REGIONS EACH 15 MINUTES MANUAL 61003 [facility] THERAPY 5 [facility] TQS 1/> INC INC REGIONS EACH 15 MINUTES APPLICATI 69875 [facility] ON 5 [facility] MODALITY INC INC 1/> AREAS HOT/COLD PACKS E-STIM G0283 [facility] 1/> AREAS 5 [facility] OTH THAN INC INC WND CARE PART TX PLAN E-STIM G0283 [facility] 1/> AREAS 5 [facility] OTH THAN INC INC WND CARE PART TX PLAN APPLICATI 73130 [facility] ON 5 [facility] MODALITY INC INC 1/> AREAS HOT/COLD PACKS APPL 09589 [facility] MODALITY 5 [facility] 1/> AREAS INC INC TRACTION MECHANICA L APPLICATI 22426 [facility] ON 5 [facility] MODALITY INC INC 1/> AREAS HOT/COLD PACKS MANUAL 63783 [facility] THERAPY 5 [facility] TQS 1/> INC INC REGIONS EACH 15 MINUTES E-STIM G0283 [facility] 1/> AREAS 5 [facility] OTH THAN INC INC WND CARE PART TX PLAN THERAPEUT 11913 [facility] IC PX 1/> 5 [facility] AREAS INC INC EACH 15 MIN EXERCISES PHYSICAL 77431 [facility] THERAPY 5 [facility] EVALUATIO INC INC N RADEX 50580 [facility] TRA SPINE 5 [place] [facility] ORTHOPAED AL 2/3 [facility] VIEWS INJECTION J1885 SP JOLLEY 5 [facility][NOTE 3][facility] INE PER 15 MG THERAPEUT 58196 SP [facility] IC 5 [facility] TIC/DX INJECTION SUBQ/IM BLOOD 66712 [facility] COUNT 5 [facility] COMPLETE INC INC AUTO&[place] [address] [facility] THYROID 5 [facility] STIMULATI [place] [address] [facility] FREE 5 [facility] THYROXINE INC INC COMPREHEN 53965 [facility] SIVE 5 [facility] METABOLIC INC INC PANEL COLLECTIO 08787 [facility] N VENOUS 5 [facility] BLOOD INC INC VENIPUNCT URE LIPID 60213 [facility] PANEL 5 [facility] INC INC RADEX 78455 [facility] OR[facility] ALL SPINE 5 MEDICAL LUMBOSACR IMAGING AL ASS MINIMUM 4 VIEWS DUP-SCAN 74128 [facility] ALL XTR VEINS 5 MEDICAL IMAGING UNILATERA ASS L/LIMITED STUDY RADEX 52223 [facility] TRA SPINE 5 [place] [facility] ORTHOPAED AL 2/3 [facility] VIEWS RADEX 08451 [facility] TRA SPINE 5 [place] [facility] ORTHOPAED AL 2/3 [facility] VIEWS OPHTH 40092 [facility] 5 GRE GRE XM&EVAL COMPRHNSV ESTAB PT 1/> VISUAL 56772 [facility] XM 5 GRE GRE UNI/BI W/INTERP EXTENDED EXAM ECG 36534 [facility] ROUTINE 5 [facility] ECG INC INC W/LEAST 12 LDS TRCG ONLY W/O I&R COLLECTIO 63513 [facility] N VENOUS 5 [facility] BLOOD INC INC VENIPUNCT URE BASIC 84953 [facility] METABOLIC 5 [facility] PANEL INC INC CALCIUM TOTAL MRI 76283 [facility] TRA SPINAL 5 [place] CANAL ORTHOPAED LUMBAR ICS PLC W/O CONTRAST MATERIAL ECG 69985 [facility] ROUTINE [facility] ECG INC INC W/LEAST 12 LDS TRCG ONLY W/O I&R ECG 85242 [facility] ROUTINE 5 [facility] ECG INC INC W/LEAST 12 LDS TRCG ONLY W/O I&R URINLS 03985 A C FIELD AMB DIP 5 LILIANE SKAGGS STICK/TAB PSC [place] [address] [facility] PROSTATE 5 DIAGNOSTI DIAGNOSTI SPECIFIC CS CS ANTIGEN TOTAL RADEX 24403 [facility] SPINE 5 [facility]ICAL [facility] THORACIC IMAGING 2 VIEWS ASS RADEX 27924 [facility] SPINE 5 MEDICAL VALENTE LUMBOSACR IMAGING AL 2/[place] [address] P&C LABS, SERRANO SURG 5 [facility] PATHOLOGY GROSS&VAN ROSCOPIC EXAM COLONOSCO 45481 [facility] PY 5 [facility] W/BIOPSY INC INC SINGLE/MU LTIPLE ANES 46095 [facility] LOWER 5 ANESTH SHE INTESTINE OF THE BLUE ENDOSCOPY DISTAL DUODENUM CV STRS 04119 [facility] TST 5 [facility] XERS&/OR INC INC RX CONT ECG TRCG ONLY CV STRS 04583 [facility] MICHELLE TST 5 CULAR MAT XERS&/OR CONSULTAN RX CONT TS O ECG I&R ONLY ECHO 26531 [facility] TTHRC R-T 5 [facility] 2D INC INC W/WOM-MOD E COMPL SPEC&COLR D ECG 13787 [facility] ROUTINE 5 [facility] ECG INC INC W/LEAST 12 LDS TRCG ONLY W/O I&R URINLS 71434 A C FIELD AMB DIP 5 LILIANE SKAGGS STICK/TAB PSC LET REAGNT NON-AUTO MICRSCPY BLOOD 70847 A C FIELD AMB COUNT 5 LILIANE SKAGGS COMPLETE PSC AUTO&AUTO DIFRNTL WBC BLOOD 59617 [facility] OCCULT 5 [facility] PEROXIDAS INC INC E ACTV QUAL FECES 1-3 SPEC IADNA NOS 38695 [facility] AMPLIFIED INC INC PROBE TQ EACH ORGANISM INF AGENT 68818 [facility] DET 5 [facility] NUCLEIC INC INC ACID CLOSTRIDI UM AMP PROBE VOLTAGE INSPECTOR STDY 80765 [facility] UNATND 4 [facility] W/HRT INC INC RATE/O2 SAT/RESP/ [place] [address] KAMARI KAMARI MAXILLOFA 4 MANAN MANAN CIAL W/O CONTRAST MATERIAL INJECTION J1885 FIELD AMB FIELD AMB 4 KETOROLAC TROMETHAM INE PER 15 MG THERAPEUT 30670 FIELD AMB FIELD AMB IC 4 PROPHYLAC TIC/DX INJECTION SUBQ/IM RADIOLOGI 72303 KAMARI KAMARI C EXAM 4 MANAN MANAN CHEST 2 VIEWS FRONTAL&L ATERAL DETERMINA 00238 [facility] TION 4 GRE GRE REFRACTIV E STATE OPHTH 20388 [facility] 4 GRE GRE XM&EVAL COMPRE NEW PT 1/> VST MRI BRAIN 53780 [facility] BRAIN 4 [facility] STEM W/O INC INC W/CONTRAS T MATERIAL CREATININ 37439 [facility] E BLOOD 4 [place] [address] [facility] UREA 4 [facility] NITROGEN INC INC QUANTITAT SIDDHARTH INJECTION A9576 [facility] GADOTERID INC INC OL PROHANCE MULTIPACK PER ML Encounters Encounter Start End Date Code Location Performer Type Date OFFICE 53692 [facility] MICHELLE OUTPATIEN 7 7 PHYSICIAN T VISIT S GROUP 25 MINUTES OFFICE 22541 [facility] OUTPATIEN 7 7 T VISIT 10 MINUTES OFFICE 15808 [facility] 7 7 T VISIT 25 MINUTES [facility] SP - 7 7 [facility] OUTPATIEN INC T OFFICE 57969 [facility] MICHELLE OUTPATIEN 7 7 PHYSICIAN T VISIT S GROUP 25 MINUTES [facility]OSPITAL SP - 7 7 [facility] SP - 7 7 [facility] T OFFICE [id number] [facility] 7 7 T NEW 45 MINUTES HOSPITAL SP [facility] 7 7 [facility] T OFFICE 05770 [facility] MICHELLE OUTPATIEN 7 7 PHYSICIAN T VISIT S GROUP 40 MINUTES HOSPITAL SP - 7 7 [facility] SP - 7 7 [facility] OUTPATI[facility] INC T OFFICE 71797 [facility] FINESSE CONSULTAT 7 7 PHYSICIAN ION S GROUP NEW/ESTAB PATIENT 40 MIN OFFICE 19548 [facility] MICHELLE OUTPATIEN 7 7 PHYSICIAN T VISIT S GROUP 15 MINUTES OFFICE 43543 [facility] STONE OUTPATIEN 7 7 PHYSICIAN T VISIT S GROUP 25 MINUTES HOSPITAL SP - 7 7 [facility] SP - 6 6 [facility] T OFFICE 92690 [facility] MICHELLE OUTPATIEN 6 6 PHYSICIAN T VISIT S GROUP 40 MINUTES OFFICE 47724 [facility] [place] OUTPATIEN 6 6 PHYSICIAN EUG T VISIT S GROUP 25 MINUTES HOSPITAL SP - 6 6 [facility] INC T OFFICE 15206 [facility] [place] OUTPATIEN 6 6 PHYSICIAN EUG T VISIT S GROUP 25 MINUTES OFFICE 62002 [facility] JIE OUTPATIEN 6 6 PHYSICIAN COOK T VISIT S GROUP 15 MINUTES EMERGENCY 90443 MIRIAM PERRY IZZY 6 6 PHYSICIAN DEPARTMEN S, [facility] T VISIT HIGH/URGE NT SEVERITY EMERGENCY 62007 SP 6 6 [facility] DEPARTMEN INC T VISIT MODERATE SEVERITY HOSPITAL SP - 6 6 [facility] SP - 6 6 [facility] INC T OFFICE 26335 [facility] [place] OUTPATIEN 6 6 PHYSICIAN EUG T VISIT S GROUP 15 MINUTES HOSPITAL SP - 6 6 [facility] INC T OFFICE 20548 [facility] [place] OUTPATIEN 6 6 PHYSICIAN EUG T VISIT S GROUP 15 MINUTES OFFICE 44425 [facility] [place] OUTPATIEN 6 6 PHYSICIAN VAN T VISIT S GROUP 10 MINUTES HOSPITAL SP - 6 6 [facility]PATIEN [facility] SP - 5 5 [facility] SP - 5 5 [facility] INC T OFFICE 05944 [facility] [place] [facility] MIN[facility]ES [facility] SP - 5 5 [facility]PATIEN INC T OFFICE 82882 SP [place] OUTPATIEN 5 5 [facility] 15 MINUTES [facility]OSPITAL SP - 5 5 [facility] INC T OFFICE 12400 [facility] [place] [facility] [facility]ED [facility] MIN[facility]ES OFFICE 42779 SP [place] OUTPATIEN 5 5 [facility] 15 MINUTES HOSPITAL SP - 5 5 [facility] OUTPATIEN INC T OFFICE 10686 SP FRYMDANITZA OUTPATIEN 5 5 [facility] 15 MINUTES [facility]OSPITAL SP - 5 5 [facility] INC T OFFICE 14265 [facility] [place] [facility]ED [facility] MIN[facility]ES OFFICE 60418 [facility] [place] [facility] [facility]ED [facility] SP - 5 5 [facility] INC T EMERGENCY 66045 MIRIAM Rashid 5 5 PHYSICIAN [facility]RISTINE S [facility] T VISIT MODERATE SEVERITY EMERGENCY 88832 SP 5 5 [facility] DEPARTMEN INC T VISIT LOW/MODER SEVERITY HOSPITAL SP - 5 5 [facility] OUTPATIEN INC T HOSPITAL SP - 5 5 [facility] INC T OFFICE 80657 [facility] [place] V[facility] [facility]OPAED 15 [facility] MIN[facility]ES [facility] SP - 5 5 [facility] T OFFICE 31770 [facility] CONSULTAT 5 5 [place] ION ORTHOPAED NEW/ESTAB [facility] PATIENT 40 MIN [facility] SP - 5 5 [facility] OUTPATIEN INC T OFFICE 48866 A C FIELD AMB OUTPATIEN 5 5 LILIANE SKAGGS T VISIT PSC 15 MINUTES EMERGENCY 36412 MIRIAM AGARWAL 5 5 PHYSICIAN JOYCE KING S PLL T VISIT HIGH/URGE NT SEVERITY OFFICE 94982 [facility] FINESSE TOD OUTPATIEN 5 5 PHYSICIAN T VISIT S GROUP 15 MINUTES HOSPITAL SP - 5 5 [facility]PATIEN INC T OFFICE 73346 [facility] FINESSE TOD OUTPATIEN 5 5 PHYSICIAN T VISIT S GROUP 15 MINUTES HOSPITAL SP - 5 5 [facility] INC T [facility]PITAL SP - 5 5 [facility] INC T OFFICE 67343 [facility] FINESSE TOD CONSULTAT 5 5 PHYSICIAN ION S GROUP NEW/ESTAB PATIENT 60 MIN OFFICE 01225 A C FIELD AMB OUTPATIEN 5 5 LILIANE SKAGGS T VISIT PSC 15 MINUTES HOSPITAL SP - 5 5 [facility] SP - 4 4 [facility] INC T OFFICE 10542 [facility] CONTRERASEY OUTPATIEN 4 4 VAN VAN T VISIT 15 MINUTES [facility] SP - 4 4 [facility] OUTPATIEN INC T OFFICE 24413 MONGIARDO MONGIARDO CONSULTAT 4 4 FRA FRA ION NEW/ESTAB PATIENT 40 MIN OFFICE 50476 FIELD AMB FIELD AMB OUTPATIEN 4 4 T VISIT 15 MINUTES EMERGENCY 82395 ALFARIS ALFARIS DEPT 4 4 [facility] VISIT HIGH SEVERITY& THREAT FUNJ OFFICE 15195 FIELD AMB FIELD AMB OUTPATIEN 4 4 T VISIT 15 MINUTES EMERGENCY 67897 ARUN ESME ARUN ESME 4 4 DEPARTMEN T VISIT MODERATE SEVERITY OFFICE 57483 [facility] OUTPATIEN 4 4 PHYSICIAN T VISIT S GROUP 10 MINUTES OFFICE 93171 FIELD AMB FIELD AMB OUTPATIEN 4 4 T VISIT 15 MINUTES HOSPITAL SP - 4 4 [facility]PATI[facility] INC T OFFICE 09543 FIELD AMB FIELD AMB OUTPATIEN 4 4 T NEW 20 MINUTES OFFICE 44315 [place] TORIBIO OUTPATIEN 4 4 T NEW 30 MINUTES
--- OUTSIDE RECORDS SUMMARY | 2017-03-17 11:08 | External Medical Summary Rpt | CCD ---
Author Author , RIO Organization RIO Address Unknown Phone [email or web address] Care Team Providers Care Geophysical Laboratory Supervisor Name Role Phone A Violet MOMIN MD [...] Unavailable [facility], [facility] Unavailable Unavailable [...] Unavailable Unavailable [facility], [facility] Unavailable Unavailable [facility], [facility], Unavailable Unavailable [facility] PERRY IZZY, PERRY IZZY Unavailable Unavailable GARNETT TRA, GARNETT TRA Unavailable Unavailable [facility] Un[facility] KOTTCASIMIRO ALTON, RYAN Unavailable [...] Diagnosis DOS Provider Status I10 ESSENTIAL 02-09-2017 [facility] PRIMARY PHYSICIANS HYPERTENSIO GROUP N I2510 ASHD [place] 02-09-2017 [facility] 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 I4510 UNSPECIFIED 02-09-2017 [facility] RIGHT PHYSICIANS BUNDLE-BRAN GROUP CH BLOCK K449 DIAPHRAGMAT 02-09-2017 [facility] IC HERNIA PHYSICIANS W/O GROUP OBSTRUCTION OR GANGRENE Z955 PRESENCE OF 02-09-2017 [facility] CORONARY PHYSICIANS ANGIOPLASTY GROUP IMPLANT & GRAFT [id number] HYPERTENSIV 01-14-2017 [facility] E RETINOPATHY BILATERAL [id number] NONEXU 01-08-2017 [facility] AGE-REL MACULAR DEG LT EYE INTRMD DRY STG [id number] EXUDATIVE 01-08-2017 [facility] AGE-RELATED MAC DEG RT EYE INACTV CNV E785 HYPERLIPIDE 11-10-2016 [facility] KEVIN PHYSICIANS UNSPECIFIED GROUP G4733 OBSTRUCTIVE 11-10-2016 [facility] SLEEP [facility] APNEA ADULT INC PEDIATRIC I119 HYPERTENSIV 11-10-2016 [facility] E HEART PHYSICIANS DISEASE GROUP WITHOUT HEART FAILURE K219 GASTRO-ESOP 11-10-2016 [facility] H REFLUX PHYSICIANS DISEASE GROUP WITHOUT ESOPHAGITIS [id number] NONEXUD 10-09-2016 [facility] AGE-REL MAC DEGEN TRU INTERMED DRY STAGE H524 PRESBYOPIA 09-11-2016 [facility] R0602 SHORTNESS 07-31-2016 SP OF BREATH [facility] INC R079 CHEST PAIN 07-31-2016 [facility] R4702 DYSPHASIA 07-31-2016 [facility] Z720 TOBACCO USE 07-28-2016 [facility] R0681 APNEA NOT 07-22-2016 SP ELSEWHERE [facility] CLASSIFIED INC K635 POLYP OF 07-09-2016 [facility] COLON ANESTH OF THE BLUE K921 MELENA 07-09-2016 [facility] ANESTH OF THE BLUE K625 HEMORRHAGE 06-24-2016 [facility] OF ANUS AND PHYSICIANS RECTUM GROUP [id number] PERSONAL 06-24-2016 [facility] HISTORY OF PHYSICIANS COLONIC GROUP POLYPS R001 BRADYCARDIA 06-12-2016 [facility] PHYSICIANS UNSPECIFIED GROUP J0100 ACUTE 05-26-2016 [facility] MAXILLARY PHYSICIANS SINUSITIS GROUP UNSPECIFIED R531 WEAKNESS 05-26-2016 [facility] R5383 OTHER 05-26-2016 SP FATIGUE [facility] INC R9431 ABNORMAL 05-26-2016 SP ELECTROCARD [facility] IOGRAM INC R55 SYNCOPE AND 05-19-2016 [facility] COLLAPSE PHYSICIANS GROUP I208 OTHER FORMS 04-29-2016 [facility] OF ANGINA PHYSICIANS PECTORIS GROUP [id number] ASHD [place] 04-29-2016 [facility] COR ART PHYSICIANS W/OTH FORMS GROUP ANGINA PECTORIS I209 ANGINA 04-24-2016 [facility] UNSPECIFIED IMAGING ASS I340 NONRHEUMATI 04-24-2016 [facility] MITRAL SERV [facility] INSUFFICIEN CY J209 ACUTE 01-28-2016 [facility] BRONCHITIS PHYSICIANS UNSPECIFIED GROUP J329 CHRONIC 01-18-2016 [facility] SINUSITIS PHYSICIANS UNSPECIFIED GROUP J40 BRONCHITIS 01-13-2016 [facility]ER [facility], SPECIFIED PLLC ACUTE OR CHRONIC K828 OTHER 01-13-2016 [facility] SPECIFIED MEDICAL DISEASES OF IMAGING ASS GALLBLADDER K922 GASTROINTES 01-13-2016 [facility] CADE [facility], HEMORRHAGE PLLC UNSPECIFIED R05 COUGH 01-13-2016 [facility] Z8551 PERSONAL 01-13-2016 [facility] HISTORY [facility]ICAL MALIGNANT IMAGING ASS NEOPLASM OF BLADDER S94099 PAIN IN 01-02-2016 [facility] RIGHT ARM [facility]ICAL [facility] O38209 [facility] PILOT POINT 12-24-2015 SP COR ARTREY [facility] W/UNS INC ANGINA PECTORIS R9439 ABNORMAL 12-24-2015 SP RESULT OTH [facility] CARDIOVASCU INC LR FUNCTION STUDY H6690 OTITIS 11-13-2015 [facility] MEDIA PHYSICIANS UNSPECIFIED GROUP UNSPECIFIED EAR G4730 SLEEP APNEA 09-18-2015 [facility] PHYSICIANS UNSPECIFIED GROUP J3489 OTHER 09-18-2015 [facility] SPECIFIED PHYSICIANS DISORDERS GROUP NOSE AND NASAL SINUSES M5126 OTH 05-09-2015 [facility] [place] [facility] RAL DISC S PLC DISPLACEMEN T LUMBAR RGN M549 DORSALGIA 04-23-2015 [facility] UNSPECIFIED [facility] INC A84713 PAIN IN LEG 04-23-2015 [facility] UNSPECIFIED INC F35818 PAIN IN 04-16-2015 SP LEFT [facility] M545 LOW BACK 04-01-2015 [facility] [place] PAIN [facility]THOP[facility]IC S PLC [id number] OTH FX 1ST 04-01-2015 [facility] [place] LUMB VERT [facility]OP[facility]IC SUBSEQUENT S PLC ENC FX RTN HLNG C679 MALIGNANT 03-22-2015 SP NEOPLASM OF [facility] BLADDER INC UNSPECIFIED E041 NONTOXIC 03-22-2015 SP SINGLE [facility] THYROID INC NODULE Q36978 PAIN IN 03-21-2015 [facility] RIGHT LEG [facility] ASS R600 LOCALIZED 03-21-2015 [facility] 8054 CLOS FX 01-17-2015 [facility] [place] LUMB [facility]OP[facility] VERTEBRA S PLC W/O MENTION SP CORD INJURY 9895 TOXIC 12-13-2014 [facility] EFFECT OF PHYSICIANS, [facility] V1582 PERS HX 12-13-2014 SP TOBACCO USE [facility] PRESENTING INC [facility] 40003 BORDERLINE 12-06-2014 [facility] GLAUC OPEN GRE ANGLE BL FINDINGS LOW RSK 83960 OTHER 12-06-2014 [facility] VISUAL GRE DISTORTIONS AND ENTOPTIC PHENOMENA 88360 OTHER 12-06-2014 [facility] VITREOUS GRE OPACITIES 4019 UNSPECIFIED 11-20-2014 SP ESSENTIAL [facility] HYPERTENSIO INC N 19280 OTHER 11-20-2014 SP SPECIFIED [facility] CARDIAC INC DYSRHYTHMIA S 43430 CHEST PAIN 11-20-2014 SP UNSPECIFIED [facility] INC 7242 LUMBAGO 11-12-2014 [facility] [place] [facility] PLC 52776 HEMATURIA 10-11-2014 [facility] UNSPECIFIED DIAGNOSTICS 7245 UNSPECIFIED 10-09-2014 [facility] BACKACHE [facility] 0093 DIARRHEA OF 09-24-2014 [facility] PRESUMED PHYSICIANS INFECTIOUS GROUP ORIGIN 2113 BENIGN 09-24-2014 [facility] NEOPLASM OF PHYSICIANS COLON GROUP 5781 BLOOD IN 09-24-2014 [facility] STOOL PHYSICIANS GROUP 48106 ABDOMINAL 09-24-2014 [facility] PAIN OTHER PHYSICIANS SPECIFIED GROUP SITE 00900 DIVERTICULO 09-14-2014 [facility] SIS OF PHYSICIANS COLON GROUP 34846 DIARRHEA 09-14-2014 [facility] PHYSICIANS GROUP 76216 ABDOMINAL 09-14-2014 [facility] PAIN, PHYSICIANS UNSPECIFIED GROUP SITE 4619 ACUTE 08-27-2014 [facility] SINUSITIS, PHYSICIANS UNSPECIFIED GROUP 412 OLD 07-19-2014 [facility] [place] [address] ATRIAL 07-19-2014 [facility] FIBRILLATIO [place]AR N [place] O 85647 NONSPECIFIC 07-19-2014 [facility] ABNORMAL LAR ELECTROCARD CONSULTANTS IOGRAM O 5693 HEMORRHAGE 07-03-2014 Gilberto MOMIN OF RECTUM PSC AND ANUS 08615 UNS SHIGA 06-28-2014 SP TOXIN-PRODU [facility] CING E COLI INC INF CLASS ELSW 37906 OBSTRUCTIVE 03-05-2014 SP SLEEP [facility] APNEA INC 460 ACUTE 01-06-[address] [facility] NASOPHARYNG ITIS 4739 UNSPECIFIED 01-05-2014 SP SINUSITIS [facility] INC 67370 ACOUSTIC 12-01-2013 [facility] TRAUMA TO FRA EAR 17576 UNSPECIFIED 12-01-2013 [facility] TINNITUS FRA 3899 UNSPECIFIED 12-01-2013 [facility] HEARING FRA LOSS 7336 TIETZES 11-09-2013 FIELD AMB DISEASE 60795 PAINFUL 11-06-2013 [facility] RESPIRATION 52492 ESOPHAGEAL 11-02-2013 FIELD AMB REFLUX 86985 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FIELD 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 4659 ACUTE URIS 10-13-2013 ARUN ESME OF UNSPECIFIED SITE 496 CHRONIC 10-13-2013 ARUN ESME AIRWAY OBSTRUCTION NEC 3670 HYPERMETROP 10-07-2013 [facility] IA GRE 7840 HEADACHE 07-05-2013 [facility] INC 19728 OTHER 07-03-2013 FIELD AMB MALAISE AND FATIGUE [...] 17 45 PH E 6 97 AR CO MA OP CY 50 MC G SP [...] CY IL 50 0 MG TA B CO 00 01 01 10 5 00 CL [...] 17 57 PH E 9 37 AR CO MA OP CY 50 MC G SP [...] Procedure DOS Code Location Performer Comment ECG 75783 [facility] ROUTINE 7 PHYSICIAN ECG S GROUP W/LEAST 12 LDS I&R ONLY FUNDUS 23414 [facility] 7 HY W/INTERPR ETATION & REPORT ECG 28589 [facility] ROUTINE 7 [facility] ECG INC INC W/LEAST 12 LDS TRCG ONLY W/O I&R COLLECTIO 35243 [facility] N VENOUS 7 [facility] BLOOD INC INC VENIPUNCT URE LIPID 40493 SP SP PANEL 7 [facility] INC INC HEPATIC 78310 [facility] FUNCTION 7 [facility] PANEL INC INC ECG 32322 [facility] ROUTINE 7 [facility] ECG INC INC W/LEAST 12 LDS TRCG ONLY W/O I&R FLUORESCE 68329 [facility] IN ANGRPH 7 W/MULTIFR INDIRA I&R UNI/BI FUNDUS 67091 [facility] PHOTOGRAP 7 HY W/INTERPR ETATION & REPORT OPHTH 93131 SCIF[facility] SCIFRES MEDICAL 7 XM&EVAL COMPRE NEW PT 1/> VST RADEX 46036 [facility] ESOPHAGUS 7 [facility] INC INC ECG 65946 [facility] ROUTINE 7 [facility] ECG INC INC W/LEAST 12 LDS TRCG ONLY W/O I&R ECG 90552 [facility] ROUTINE 7 PHYSICIAN ECG S GROUP W/LEAST 12 LDS I&R ONLY POLYSOM 74461 SP MALONEON 6/>YRS 7 [facility] SLEEP 4/> INC INC ADDL AYO ATTND ANES 80928 [facility] 7 ANESTH INTESTINE OF THE BLUE ENDOSCOPY DISTAL DUODENUM ECG 98956 [facility] MICHELLE ROUTINE 7 PHYSICIAN ECG S GROUP W/LEAST 12 LDS I&R ONLY CV STRS 28861 [facility] TST 7 [facility] XERS&/OR INC INC RX CONT ECG TRCG ONLY ECG 61740 [facility] ROUTINE 6 [facility] ECG INC INC W/LEAST 12 LDS TRCG ONLY W/O I&R COLLECTIO 49913 [facility] N VENOUS 6 [facility] [place] [address] [facility] FREE 6 [facility] [place] [address] [facility] THYROID 6 [facility] STIMULATI INC INC NG HORMONE TSH CATH PLMT 86224 [facility] MICHELLE L HRT & 6 PHYSICIAN ARTS S GROUP W/NJX & ANGIO IMG S&I BASIC 82938 [facility] METABOLIC 6 [facility] PANEL INC INC CALCIUM TOTAL RADIOLOGI 82157 [facility] C EXAM 6 [facility] CHEST 2 INC INC VIEWS FRONTAL&L ATERAL COLLECTIO 64646 [facility] N VENOUS 6 [facility] BLOOD INC INC VENIPUNCT URE ECHO 66097 [facility] R-T 6 [facility] [place] 2D SERV W/WOM-MOD FOUNDATIO E COMPL N SPEC&COLR D THERAPEUT 66271 [facility] FRYMAN IC 6 PHYSICIAN EUG PROPHYLAC S GROUP TIC/DX INJECTION SUBQ/IM INJECTION J1100 [facility] FRYMAN 6 PHYSICIAN EUG DEXAMETHO S GROUP SONE SODIUM PHOSPHATE 1 MG THER 68531 [facility] PROPH/DX 6 [facility] NJX IV INC INC PUSH SINGLE/1S T SBST/[place] [address] [facility] ABDOMEN & 6 [facility] PELVIS INC INC W/O CONTRAST MATERIAL THROMBOPL 18929 [facility] ASTIN 6 [facility] TIME INC INC PARTIAL PLASMA/WH OLE BLOOD BLOOD 27779 [facility] TYPING 6 [facility] SEROLOGIC INC INC RH (D) PROTHROMB 00539 [facility] IN TIME 6 [facility] INC INC PRESSURIZ 04955 [facility] ED/NONPRE 6 [facility] SSURIZED INC INC INHALATIO N TREATMENT LIPID 58521 [facility] PANEL 6 [facility] INC INC COLLECTIO 15270 [facility] N VENOUS 6 [facility] BLOOD INC INC VENIPUNCT URE COMPREHEN 84185 [facility] SIVE 6 [facility] METABOLIC INC INC PANEL URNLS DIP 69674 [facility] 6 [facility] STICK/TAB INC INC LET REAGENT AUTO MICROSCOP Y BLOOD 47471 [facility] OCCULT 6 [facility] PEROXIDAS INC INC E ACTV QUAL FECES 1-3 SPEC BLOOD 21937 [facility] COUNT 6 [facility] COMPLETE INC INC AUTO&AUTO DIFRNTL WBC CULTURE 59967 [facility] BACTERIAL 6 [facility] BLOOD INC INC AEROBIC W/ID ISOLATES ANTIBODY 42038 [facility] SCREEN 6 [facility] RBC EACH INC INC SERUM TECHNIQUE BLOOD 46044 [facility] TYPING 6 [facility] SEROLOGIC INC INC ABO RADIOLOGI 07745 [place] [facility] C EXAM 6 MEDICAL MANAN CHEST 2 IMAGING VIEWS ASS FRONTAL&L ATERAL DUP-SCAN 92235 [place] ORO ALL XTR VEINS 6 MEDICAL IMAGING UNILATERA ASS L/LIMITED STUDY PRQ 41607 [facility] MICHELLE TRLUML 6 PHYSICIAN MAT CORONARY S GROUP ANGIOPLAS TY ONE ART/BR[place] PRQ [address]302 [facility] MICHELLE TRLUML 6 PHYSICIAN MAT CORONARY S GROUP STENT W/ANGIO ONE ART/BRNCH BLOOD 33327 [facility] COUNT 6 [facility] COMPLETE INC INC AUTO&AUTO DIFRNTL WBC BASIC 26183 [facility] METABOLIC 6 [facility] PANEL INC INC CALCIUM TOTAL CATH PLMT 52108 [facility] MICHELLE L HRT & 6 PHYSICIAN MAT ARTS S GROUP W/NJX & ANGIO IMG S&I MYOCARDIA 17534 [facility] MICHELLE L SPECT 6 PHYSICIAN MAT MULTIPLE S GROUP STUDIES LIPID 13658 [facility] PANEL 6 [facility] INC INC COMPREHEN 39371 [facility] SIVE 6 [facility] METABOLIC INC INC PANEL BLOOD 69692 [facility] COUNT 6 [facility] COMPLETE INC INC AUTO&[place] [address] [facility] THYROID 6 [facility] STIMULATI [place] [address] [facility] THYROXINE 6 [facility] TOTAL INC INC ECG 92314 [facility] ROUTINE 6 [facility] ECG INC INC W/LEAST 12 LDS TRCG ONLY W/O I&R EXTERNAL 24787 [facility] ECG 5 [facility] SCANNING INC INC ANALYSIS REPORT XTRNL ECG 26936 SP WADE JR 5 [facility] S RHYTHM P W/I&R UP TO 48 HRS XTRNL ECG 02425 [facility] & 48 HR 5 [facility] RECORDING INC INC ECG 34148 [facility] ROUTINE 5 [facility] ECG INC INC W/LEAST 12 LDS TRCG ONLY W/O I&R THERAPEUT 26084 [facility] IC PX 1/> 5 [facility] AREAS INC INC EACH 15 MIN EXERCISES E-STIM G0283 [facility] 1/> AREAS 5 [facility] OTH THAN INC INC WND CARE PART TX PLAN APPLICATI 63755 [facility] ON 5 [facility] MODALITY INC INC 1/> AREAS HOT/COLD PACKS APPL 54146 [facility] MODALITY 5 [facility] 1/> AREAS INC INC ULTRASOUN D EA 15 MIN MANUAL 46634 [facility] THERAPY 5 [facility] TQS 1/> INC INC REGIONS EACH 15 MINUTES APPLICATI 45114 [facility] ON 5 [facility] MODALITY INC INC 1/> AREAS HOT/COLD PACKS E-STIM G0283 [facility] 1/> AREAS 5 [facility] OTH THAN INC INC WND CARE PART TX PLAN THERAPEUT 94367 [facility] IC PX 1/> 5 [facility] AREAS INC INC EACH 15 MIN EXERCISES THERAPEUT 20863 [facility] IC PX 1/> 5 [facility] AREAS INC INC EACH 15 MIN EXERCISES E-STIM G0283 [facility] 1/> AREAS 5 [facility] OTH THAN INC INC WND CARE PART TX PLAN APPLICATI 05690 [facility] ON 5 [facility] MODALITY INC INC 1/> AREAS HOT/COLD PACKS MANUAL 35216 [facility] THERAPY 5 [facility] TQS 1/> INC INC REGIONS EACH 15 MINUTES MANUAL 04377 [facility] THERAPY 5 [facility] TQS 1/> INC INC REGIONS EACH 15 MINUTES APPLICATI 40976 [facility] ON 5 [facility] MODALITY INC INC 1/> AREAS HOT/COLD PACKS E-STIM G0283 [facility] 1/> AREAS 5 [facility] OTH THAN INC INC WND CARE PART TX PLAN E-STIM G0283 [facility] 1/> AREAS 5 [facility] OTH THAN INC INC WND CARE PART TX PLAN APPLICATI 15120 [facility] ON 5 [facility] MODALITY INC INC 1/> AREAS HOT/COLD PACKS APPL 87146 [facility] MODALITY 5 [facility] 1/> AREAS INC INC TRACTION MECHANICA L APPLICATI 82625 [facility] ON 5 [facility] MODALITY INC INC 1/> AREAS HOT/COLD PACKS MANUAL 19074 [facility] THERAPY 5 [facility] TQS 1/> INC INC REGIONS EACH 15 MINUTES E-STIM G0283 [facility] 1/> AREAS 5 [facility] OTH THAN INC INC WND CARE PART TX PLAN THERAPEUT 26179 [facility] IC PX 1/> 5 [facility] AREAS INC INC EACH 15 MIN EXERCISES PHYSICAL 24568 [facility] THERAPY 5 [facility] EVALUATIO INC INC N RADEX 35463 [facility] TRA SPINE 5 [place] LUMBOSA[facility] ORTHOPAED AL 2/3 ICS PLC VIEWS INJECTION J1885 [facility] INE PER 15 MG THERAPEUT 77592 SP [facility]OL[facility] IC 5 [facility] TIC/DX INJECTION SUBQ/IM BLOOD 60556 [facility] COUNT 5 [facility] COMPLETE INC INC AUTO&[place] [address] [facility] THYROID 5 [facility] STIMULATI [place] [address] [facility] FREE 5 [facility] THYROXINE INC INC COMPREHEN 21534 [facility] SIVE 5 [facility] METABOLIC INC INC PANEL COLLECTIO 58476 [facility] N VENOUS 5 [facility] BLOOD INC INC VENIPUNCT URE LIPID 09001 [facility] PANEL 5 [facility] INC INC RADEX 13918 [place] ORO ALL SPINE 5 MEDICAL LUMBOSACR IMAGING AL ASS MINIMUM 4 VIEWS DUP-SCAN 37818 [place] ORO ALL XTR VEINS 5 MEDICAL IMAGING UNILATERA ASS L/LIMITED STUDY RADEX 37532 [facility] SPINE 5 [place] LUMBOSA[facility] ORTHOPAED AL 2/3 ICS PLC VIEWS RADEX 84483 [facility] TRA SPINE 5 [place] LUMB[facility] ORTHOPAED AL 2/3 ICS PLC VIEWS OPHTH 51778 [facility] 5 GRE GRE XM&EVAL COMPRHNSV ESTAB PT 1/> VISUAL 47079 [facility] XM 5 GRE GRE UNI/BI W/INTERP EXTENDED EXAM ECG 14501 [facility] ROUTINE 5 [facility] ECG INC INC W/LEAST 12 LDS TRCG ONLY W/O I&R COLLECTIO 20633 [facility] N VENOUS 5 [facility] BLOOD INC INC VENIPUNCT URE BASIC 89397 [facility] METABOLIC 5 [facility] PANEL INC INC CALCIUM TOTAL MRI 47416 [facility] SPINAL 5 [place] CANAL ORTHOPAED LUMBAR ICS PLC W/O CONTRAST MATERIAL ECG 41739 [facility] ROUTINE 5 [facility] ECG INC INC W/LEAST 12 LDS TRCG ONLY W/O I&R ECG 65538 [facility] ROUTINE 5 [facility] ECG INC INC W/LEAST 12 LDS TRCG ONLY W/O I&R URINLS 16782 A C FIELD AMB DIP 5 LILIANE SKAGGS STICK/TAB PSC [place] [address] Guanri PROSTATE 5 DIAGNOSTI DIAGNOSTI SPECIFIC CS CS ANTIGEN TOTAL RADEX 08350 [facility] SPINE 5 MEDICAL [facility] THORACIC IMAGING 2 VIEWS ASS RADEX 52680 [facility] SPINE 5 MEDICAL VALENTE LUMBOSACR IMAGING AL 2/[place] [address] [facility], SERRANO SURG 5 [facility] PATHOLOGY GROSS&VAN ROSCOPIC EXAM COLONOSCO 93455 [facility] PY 5 [facility] W/BIOPSY INC INC SINGLE/MU LTIPLE ANES 35705 [facility] 5 ANESTH SHE INTESTINE OF THE BLUE ENDOSCOPY DISTAL DUODENUM CV STRS 00853 [facility] TST 5 [facility] XERS&/OR INC INC RX CONT ECG TRCG ONLY CV STRS 67811 CARDI[facility] MICHELLE TST 5 CULAR MAT XERS&/OR CONSULTAN RX CONT TS O ECG I&R ONLY ECHO 05890 [facility] TTHRC R-T 5 [facility] 2D INC INC W/WOM-MOD E COMPL SPEC&COLR D ECG 52102 [facility] ROUTINE 5 [facility] ECG INC INC W/LEAST 12 LDS TRCG ONLY W/O I&R URINLS 22137 A C FIELD AMB DIP 5 LILIANE SKAGGS STICK/TAB PSC LET REAGNT NON-AUTO MICRSCPY BLOOD 17782 A C FIELD AMB COUNT 5 LILIANE SKAGGS COMPLETE PSC AUTO&AUTO DIFRNTL WBC BLOOD 78374 [facility] OCCULT 5 [facility] PEROXIDAS INC INC E ACTV QUAL FECES 1-3 SPEC IADNA NOS 86254 SP [facility] 5 [facility] AMPLIFIED INC INC PROBE TQ EACH ORGANISM INF AGENT 82525 [facility] DET 5 [facility] NUCLEIC INC INC ACID CLOSTRIDI UM AMP PROBE OIL CHANGER STDY 98058 [facility] UNATND 4 [facility] W/HRT INC INC RATE/O2 SAT/RESP/ [place] [address] KAMARI KAMARI MAXILLOFA 4 MANAN MANNA CIAL W/O CONTRAST MATERIAL INJECTION J1885 FIELD AMB FIELD AMB 4 KETOROLAC TROMETHAM INE PER 15 MG THERAPEUT 40201 FIELD AMB FIELD AMB IC 4 PROPHYLAC TIC/DX INJECTION SUBQ/IM RADIOLOGI 34993 KAMARI KAMARI C EXAM 4 MANAN MANAN CHEST 2 VIEWS FRONTAL&L ATERAL DETERMINA 61397 [facility] TION 4 GRE GRE REFRACTIV E STATE OPHTH 01964 [facility] 4 GRE GRE XM&EVAL COMPRE NEW PT 1/> VST MRI BRAIN 72054 [facility] BRAIN 4 [facility] STEM W/O INC INC W/CONTRAS T MATERIAL CREATININ 61932 [facility] E BLOOD 4 [facility] [place] [address] [facility] UREA 4 [facility] NITROGEN INC INC QUANTITAT SIDDHARTH INJECTION A9576 [facility] GADOTERID INC INC OL PROHANCE MULTIPACK PER ML Encounters Encounter Start End Date Code Location Performer Type Date OFFICE 41288 [facility] MICHELLE OUTPATIEN 7 7 PHYSICIAN T VISIT S GROUP 25 MINUTES OFFICE 31470 [facility] OUTPATIEN 7 7 T VISIT 10 MINUTES OFFICE 54669 [facility] T VISIT 25 MINUTES [facility] SP - 7 7 [facility] T OFFICE 75782 [facility] MICHELLE OUTPATIEN 7 7 PHYSICIAN T VISIT S GROUP 25 MINUTES [facility]OSP[facility] SP - 7 7 [facility] SP - 7 7 [facility] T OFFICE 87609 [facility] 7 7 T NEW 45 MINUTES [facility] SP - 7 7 [facility] T OFFICE 61732 [facility] MICHELLE OUTPATIEN 7 7 PHYSICIAN T VISIT S GROUP 40 MINUTES [facility]OSPITAL SP - 7 7 [facility] SP - 7 7 [facility] INC T OFFICE 92887 [facility] FINESSE CONSULTAT 7 7 PHYSICIAN ION S GROUP NEW/ESTAB PATIENT 40 MIN OFFICE 35630 [facility] MICHELLE OUTPATIEN 7 7 PHYSICIAN T VISIT S GROUP 15 MINUTES OFFICE 75785 [facility] STONE OUTPATIEN 7 7 PHYSICIAN T VISIT S GROUP 25 MINUTES [facility]OSPITAL SP - 7 7 [facility] SP - 6 6 [facility] INC T OFFICE 99443 [facility] MICHELLE OUTPATIEN 6 6 PHYSICIAN T VISIT S GROUP 40 MINUTES OFFICE 74322 [facility] [place] OUTPATIEN 6 6 PHYSICIAN EUG T VISIT S GROUP 25 MINUTES HOSPITAL SP - 6 6 [facility] INC T OFFICE 46886 [facility] [place] OUTPATIEN 6 6 PHYSICIAN EUG T VISIT S GROUP 25 MINUTES OFFICE 22880 [facility] JIE OUTPATIEN 6 6 PHYSICIAN COOK T VISIT S GROUP 15 MINUTES EMERGENCY 38490 MIRIAM PERRY IZZY 6 6 PHYSICIAN DEPARTMEN S, [facility] T VISIT HIGH/URGE NT SEVERITY EMERGENCY 27676 SP 6 6 [facility] DEPARTMEN INC T VISIT MODERATE SEVERITY [facility]OSPITAL SP - 6 6 [facility] SP - 6 6 [facility] OUT[facility] INC T OFFICE 79846 [facility] [place] OUTPATIEN 6 6 PHYSICIAN EUG T VISIT S GROUP 15 MINUTES HOSPITAL SP - 6 6 [facility] OUTPATIEN INC T OFFICE 24514 [facility] [place] OUTPATIEN 6 6 PHYSICIAN EUG T VISIT S GROUP 15 MINUTES OFFICE 29807 [facility] [place] OUTPATIEN 6 6 PHYSICIAN VAN T VISIT S GROUP 10 MINUTES HOSPITAL SP - 6 6 [facility] OUTPATIEN [facility] SP - 5 5 [facility] SP - [facility] [id number] [facility] [place] [facility] 08439 SP [facility] OUTPATIEN 5 5 [facility] T [facility]IS[facility] 15 MINUTES [facility] SP - 5 5 [facility] OFFICE 34369 [facility] [place] [facility] [facility] MIN[facility]ES OFFICE 62678 SP [facility] OUTPATIEN 5 5 [facility] T [facility] 15 MINUTES [facility] SP - 5 5 [facility] T OFFICE 03686 SP FRYMDANITZA [facility]PATIEN 5 5 [facility] T [facility]IS[facility] 15 MINUTES [facility] SP [facility] 5 5 [facility] OFFICE 09471 [facility] [place] [place] [facility] [facility]ES OFFICE 79711 [facility] [place] [place] [facility] SP - [facility] T EMERGENCY 68795 MIRIAM Rashid 5 5 [facility]YSICIAN [facility] T VISIT MODERATE SEVERITY EMERGENCY 24141 SP 5 5 [facility] T VISIT LOW/MODER SEVERITY HOSPITAL SP - 5 5 [facility] T [facility] SP [facility] 5 5 [facility] T OFFICE 74030 [facility] [place] [facility] SP - [facility] OFFICE 72702 [facility] 5 5 [place] [facility] [facility] NEW/ESTAB [facility] PATIENT 40 MIN [facility] SP - 5 5 [facility] T OFFICE 31283 A C FIELD AMB OUTPATIEN 5 5 LILIANE SKAGGS T VISIT PSC 15 MINUTES EMERGENCY 39305 MIRIAM AGARWAL 5 5 PHYSICIAN JOYCE KING S PLL T VISIT HIGH/URGE NT SEVERITY OFFICE 96127 [facility] FINESSE TOD OUTPATIEN 5 5 PHYSICIAN T VISIT S GROUP 15 MINUTES HOSPITAL SP - 5 5 [facility] T OFFICE 64835 [facility] FINESSE TOD OUTPATIEN 5 5 PHYSICIAN T VISIT S GROUP 15 MINUTES [facility]OSPITAL SP - 5 5 [facility] SP - 5 5 [facility] T OFFICE 76340 [facility] FINESSE TOD CONSULTAT 5 5 PHYSICIAN ION S GROUP NEW/ESTAB PATIENT 60 MIN OFFICE 77577 A C FIELD AMB OUTPATIEN 5 5 LILIANE SKAGGS T VISIT PSC 15 MINUTES [facility]OSPITAL SP - 5 5 [facility] SP - 4 4 [facility] T OFFICE 24084 [facility] CONTRERASEY OUTPATIEN 4 4 VAN VAN T [facility]ISIT 15 MINUTES [facility] - 4 4 [facility] T OFFICE 54344 MONGIARDO MONGIARDO CONSULTAT 4 4 FRA FRA ION NEW/ESTAB PATIENT 40 MIN OFFICE 78264 FIELD AMB FIELD AMB OUTPATIEN 4 4 T VISIT 15 MINUTES EMERGENCY 85683 ALFARIS ALFARIS DEPT 4 4 [facility] VISIT HIGH SEVERITY& THREAT FUNJ OFFICE 50687 FIELD AMB FIELD AMB OUTPATIEN 4 4 T VISIT 15 MINUTES EMERGENCY 58032 ARUN ESME ARUN ESME 4 4 DEPARTMEN T VISIT MODERATE SEVERITY OFFICE 22905 [facility] OUTPATIEN 4 4 PHYSICIAN T VISIT S GROUP 10 MINUTES OFFICE 11850 FIELD AMB FIELD AMB OUTPATIEN 4 4 T VISIT 15 MINUTES HOSPITAL SP - 4 4 [facility] T OFFICE 03984 FIELD AMB FIELD AMB OUTPATIEN 4 4 T NEW 20 MINUTES OFFICE 22402 [facility] [facility] OUTPATIEN 4 4 T NEW 30 MINUTES
--- NOTE | 2017-03-17 11:13 | Urgent Treatment Center Report ---
History of Present Issue Date/Time Seen by Provider 03/17/17 1113 Visit Reason Pt arrived:Walked Presenting Problem:C/O CHEST CONGESTION, COUGH, AND RUNNY NOSE Location if Accident: Onset of symptoms date/time:/ or onset unknown for:MEDICAL HX UNKNOWN Have you (or family members/close friends) recently traveled outside the [place]? N If Yes, where/when: Have you had exposure to infectious disease within the past month? TB? Other? Specify: c/o PND, cough, right ear pressure x 3-4 days. Similiar symptoms first week of February. Seen in ER 03/01. Dx cough. Rx azithromycin. Symptoms improved overall until now. Pt contributes symptoms to being without flonase x 1-2 weeks. Reports he keeps forgetting to see PCP for follow-up and refills. PND & intermittent right ear pressure. + tobacco abuse. Denies medications/inhalers for COPD "not for years". Occasional SOA and wheezing. Not sure if unchanged. No known fever, aches, chills. Source patient Exam Limitations no limitations ALLERGIES Coded Allergies: pseudoephedrine (IRRITABILITY 01/13/16) Home Medications Active Scripts Albuterol (Albuterol-Hfa Inhaler) 1-2 PUFFS IH Q6HP PRN bronchospasm #1 INH Prov: 01/13/16 Methylprednisolone (Medrol Dose Vidhi) 4 MG PO UD #1 VIDHI Prov: 01/13/16 HYDROCODONE/ACETAMINOPHEN (Lortab 10-325 MG Tablet) 1 TAB PO Q4HP PRN pain #20 TAB Prov: 01/13/16 Azithromycin (Avpak Azithromycin) 250 MG PO DAILY #6 TAB Prov: 03/01/17 Reported Medications Omeprazole (Omeprazole 40MG) 40 MG PO DAILY Rivaroxaban (Xarelto) 15 MG PO BID Prasugrel HCl (Effient) 10 MG PO DAILY ASPIRIN (Aspirin) 81 MG PO DAILY Atorvastatin Calcium (Atorvastatin) 40 MG PO DAILY History Medical History General CAD? No Angina: No [place]: No Hypertension? No Hyperlipidemia? No CHF? No DVT? No PE? No COPD? No Asthma? No Anemia? No GERD? No Gastric ulcers? No GI Bleed? No Hernia? No Thyroid Problems? No Hypothyroidism? No CVA? No Seizures? No Diabetes? No Insulin Dependent: No Insulin Pump: No Home FSBS? No Renal Insuffiency? No UTI? No Stones? No BPH? No GB Disease: No Nephritic Syndrome? No Asplenia? No Hepatitis? No Sickle Cell Disease? No Arthritis? No Migraines? No Cataracts? No Glaucoma? No MRSA? No HIV? No TB? No Anxiety? No Depression? No Cancer? Yes Site: BLADDER CANCER More? Yes Additional hx: STENTS PLACED 12/26/15 Immunization HX DT/Tetanus 5-10 Years Ago Flu Refused Pneumonia Refuses Surgical Hx Previous Surgery?Y VASECTOMY T& A BLADDER CANCER INDEX FINGER LEFT AMPUTA. Family History Family HX CAD No Social History Smoking Hx Smoker: Current Every Day Smoker Tobacco: Yes Type Cigarettes Packs/day < 1 Pack Alcohol Alcohol: No Review of Systems All Other Systems Reviewed and Negative Constitutional see HPI, denies malaise Eyes denies drainage ENT see HPI. denies: ear discharge, nose discharge, nose congestion, throat pain. Respiratory see HPI Cardiovascular denies chest pain Gastrointestinal denies no symptoms reported Musculoskeletal denies joint pain Skin denies rash Psychiatric/Neurological denies headache Physical Exam Vital Signs Vital Signs Date Time Temp Pulse Resp B/P Pulse O2 O2 Flow FiO2 Ox Delivery Rate 03/17 1138 98.7 64 20 144/71 97 03/17 1106 98.7 64 20 144/71 97 General Appearance normal appearance, no apparent distress Eye Exam - bilateral eye normal exam Ear, Nose, Throat normal ENT inspection (x/ minimal clear fluid rt TM) Neck non-tender, supple Respiratory Status Yes: non productive cough. No: respiratory distress, use of accessory muscles, productive cough. Lung Sounds anterior: lungs clear. posterior: lungs clear. bilateral: lungs clear. Cardiovascular regular rate/rhythm, no peripheral edema, no murmur Neurologic alert, oriented x 3 Skin normal color, warm/dry Lymphatic axilla node tender (R) Medical Decision Making LABS/Meds/Orders Pt receiving controlled substance in ED? No Departure Departure Time of Disposition 1126 Disposition DC Home or Self Care(routine) Clinical Impression Primary Impression: Cough Secondary Impressions: Environmental allergies Condition STABLE Referrals Vinicio Mata APRN (Family) in 2-3 days if no noticeable improvement but consider calling and scheduling you a routine follow up since you are over due. Patient Instructions DI for Allergic Rhinitis, DI for Cough -- Adult Additional Instructions * No sign of bacterial infection. Likely viral. Virus can take 7-14 days to run their course * Restart your flonase * Monitor Temp. FU if truly feverish * humidifier/vaporizer/hot steamy shower * Inhaler every 4-6 hours as needed like we discussed. If unsure how to use it, ask pharmacist to demonstrate how. Should help open airways and improve cough, wheezing, shortness of breath. * Mucinex during the day for your cough and cough suppressant only at night. Be sure to drink lots of water. Insurance may not cover a prescription of mucinex. Might be cheaper to get 400mg tablets and take 2 tablets morning, midday and evening all with lots of water. * Start steroid today. Helps with inflammation therefore, cough and wheezing. Follow directions on package. Rvwd side effects. Pt reports they have taken them before. * STOP SMOKING Discharge Counseling Counseled pt/family regarding diagnosis, medications/RX, home care, follow up needs Prescriptions Current Visit Scripts ALBUTEROL (Proventil Hfa Inhaler) 1-2 PUFF IH Q4-6H PRN PRN SOA, wheezing #1 CAN Fluticasone Propionate (Flonase 50 Mcg Nasal [place]) 2 SPRAY NA DAILY #1 BOT Prednisone (Prednisone 20MG) 20 MG PO BID #10 TAB at 1604
--- OUTSIDE RECORDS SUMMARY | 2017-03-17 11:13 | External Medical Summary Rpt | CCD ---
Author Author , RIO Organization [employer] Address Unknown Phone [email or web address] Providers Care Propagation Worker Name Role Phone A Violet MOMIN MD [...] Unavailable [facility], [facility] Unavailable [facility]available [...] Unavailable Unavailable [facility], [facility] Unavailable Unavailable [facility], [facility], Unavailable Unavailable [facility] PERRYCASIMIRO MAGANA, VICKY MAGANA Unavailable Unavailable GARNETT TRA, GARNETT TRA Unavailable Unavailable [facility] KOTTER ALTON, KOTTER Unavailable [...] Diagnosis DOS Provider Status I10 ESSENTIAL 02-09-2017 [facility] PRIMARY PHYSICIANS HYPERTENSIO GROUP N 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-2017 [facility] 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 I4510 UNSPECIFIED 02-09-2017 [facility] RIGHT PHYSICIANS BUNDLE-BRAN GROUP CH BLOCK K449 DIAPHRAGMAT 02-09-2017 [facility] IC HERNIA PHYSICIANS W/O GROUP OBSTRUCTION OR GANGRENE Z955 PRESENCE OF 02-09-2017 [facility] CORONARY PHYSICIANS ANGIOPLASTY GROUP IMPLANT & GRAFT V89896 HYPERTENSIV 01-14-2017 [facility] E RETINOPATHY BILATERAL [id number] NONEXU 01-08-2017 [facility] AGE-REL MACULAR DEG LT EYE INTRMD DRY STG [id number] EXUDATIVE 01-08-2017 [facility] AGE-RELATED MAC DEG RT EYE INACTV CNV E785 HYPERLIPIDE 11-10-2016 [facility] KEVIN PHYSICIANS UNSPECIFIED GROUP G4733 OBSTRUCTIVE 11-10-2016 [facility] SLEEP [facility] APNEA ADULT INC PEDIATRIC I119 HYPERTENSIV 11-10-2016 [facility] E HEART PHYSICIANS DISEASE GROUP WITHOUT HEART FAILURE K219 GASTRO-ESOP 11-10-2016 [facility] H REFLUX PHYSICIANS DISEASE GROUP WITHOUT ESOPHAGITIS [id number] NONEXUD 10-09-2016 [facility] AGE-REL MAC DEGEN TRU INTERMED DRY STAGE H524 PRESBYOPIA 09-11-2016 [facility] R0602 SHORTNESS 07-31-2016 [facility] BREATH [facility] R079 CHEST PAIN 07-31-[facility] R4702 DYSPHASIA 07-31-2016 [facility] Z720 TOBACCO USE 07-28-2016 [facility] R0681 APNEA NOT 07-22-2016 SP ELSEWHERE [facility] CLASSIFIED INC K635 POLYP OF 07-09-2016 [facility] COLON ANESTH OF THE BLUE K921 MELENA 07-09-2016 [facility] K625 HEMORRHAGE 06-24-2016 [facility] OF ANUS AND PHYSICIANS RECTUM GROUP Y13070 PERSONAL 06-24-2016 [facility] HISTORY OF PHYSICIANS COLONIC GROUP POLYPS R001 BRADYCARDIA 06-12-2016 [facility] PHYSICIANS UNSPECIFIED GROUP J0100 ACUTE 05-26-2016 [facility] MAXILLARY PHYSICIANS SINUSITIS GROUP UNSPECIFIED R531 WEAKNESS 05-26-2016 [facility] R5383 OTHER 05-26-2016 [facility] FATIGUE [facility] INC R9431 ABNORMAL 05-26-2016 SP ELECTROCARD [facility] IOGRAM INC R55 SYNCOPE AND 05-19-2016 [facility] COLLAPSE PHYSICIANS GROUP I208 OTHER FORMS 04-29-2016 [facility] OF ANGINA PHYSICIANS PECTORIS GROUP F33424 ASHD TWENTY-NINE PALMS 04-29-2016 [facility] COR ART PHYSICIANS W/OTH FORMS GROUP ANGINA PECTORIS I209 ANGINA 04-24-2016 [facility] UNSPECIFIED IMAGING ASS I340 NONRHEUMATI 04-24-2016 [facility]RAL SERV [facility] INSUFFICIEN CY J209 ACUTE 01-28-2016 [facility] BRONCHITIS PHYSICIANS UNSPECIFIED GROUP J329 CHRONIC 01-18-2016 [facility] SINUSITIS PHYSICIANS UNSPECIFIED GROUP J40 BRONCHITIS 01-13-2016 [facility] NOT PHYSICIANS, SPECIFIED PLLC ACUTE OR CHRONIC K828 OTHER 01-13-2016 [place] SPECIFIED [facility] DISEASES OF IMAGING ASS GALLBLADDER K922 GASTROINTES 01-13-2016 [facility] KEARNSAL PHYSICIANS, HEMORRHAGE PLLC UNSPECIFIED R05 COUGH 01-13-2016 [facility] Z8551 PERSONAL 01-13-2016 [place] [facility] MALIGNANT [facility] ASS NEOPLASM OF BLADDER E34410 PAIN IN 01-02-2016 [place] [facility] R60081 [facility] TWENTY-NINE PALMS 12-24-2015 SP COR [facility]REY [facility] W/UNS INC ANGINA PECTORIS R9439 ABNORMAL 12-24-2015 SP RESULT OTH [facility] CARDIOVASCU INC LR FUNCTION STUDY H6690 OTITIS 11-13-2015 [facility] MEDIA PHYSICIANS UNSPECIFIED GROUP UNSPECIFIED EAR G4730 SLEEP APNEA 09-18-2015 [facility] PHYSICIANS UNSPECIFIED GROUP J3489 OTHER 09-18-2015 [facility] SPECIFIED PHYSICIANS DISORDERS GROUP NOSE AND NASAL SINUSES M5126 OTH 05-09-2015 [facility] [place] [facility] RAL DISC S PLC DISPLACEMEN T LUMBAR RGN M549 DORSALGIA 04-23-2015 [facility] UNSPECIFIED [facility] INC B86810 PAIN IN LEG 04-23-2015 [facility] UNSPECIFIED INC P02377 PAIN IN 04-16-2015 [facility] LEFT [facility] M545 LOW BACK 04-01-2015 [facility] [place] PAIN [facility]TH[facility]IC S PLC [id number] OTH FX 1ST 04-01-2015 [facility] [place] LUMB VERT [facility] SUBSEQUENT S PLC ENC FX RTN HLNG C679 MALIGNANT 03-22-2015 SP NEOPLASM OF [facility] BLADDER INC UNSPECIFIED E041 NONTOXIC 03-22-2015 [facility] SINGLE [facility] THYROID INC NODULE X96001 PAIN IN 03-21-2015 [place] [facility] R600 LOCALIZED 03-21-2015 [facility] 8054 CLOS FX 01-17-2015 [facility] [place] LUMB [facility] VERTEBRA S PLC W/O MENTION SP CORD INJURY 9895 TOXIC 12-13-2014 [facility] EFFECT OF PHYSICIANS, [facility] V1582 PERS HX 12-13-2014 SP TOBACCO USE [facility] PRESENTING INC [facility] 32782 BORDERLINE 12-06-2014 [facility] GLAUC OPEN GRE ANGLE BL FINDINGS LOW RSK 87867 OTHER 12-06-2014 [facility] VISUAL GRE DISTORTIONS AND ENTOPTIC PHENOMENA 79234 OTHER 12-06-2014 [facility] VITREOUS GRE OPACITIES 4019 UNSPECIFIED 11-20-2014 SP ESSENTIAL [facility] HYPERTENSIO INC N 34990 OTHER 11-20-2014 SP SPECIFIED [facility] CARDIAC INC DYSRHYTHMIA S 25388 CHEST PAIN 11-20-2014 SP UNSPECIFIED [facility] INC 7242 LUMBAGO 11-12-2014 [facility] [place] [facility] 93249 HEMATURIA 10-11-2014 [facility] UNSPECIFIED DIAGNOSTICS 7245 UNSPECIFIED 10-09-2014 [place] [facility] 0093 DIARRHEA OF 09-24-2014 [facility] PRESUMED PHYSICIANS INFECTIOUS GROUP ORIGIN 2113 BENIGN 09-24-2014 [facility] NEOPLASM OF PHYSICIANS COLON GROUP 5781 BLOOD IN 09-24-2014 [facility] STOOL PHYSICIANS GROUP 48413 ABDOMINAL 09-24-2014 [facility] PAIN OTHER PHYSICIANS SPECIFIED GROUP SITE 78419 DIVERTICULO 09-14-2014 [facility] SIS OF PHYSICIANS COLON GROUP 59338 DIARRHEA 09-14-2014 [facility] PHYSICIANS GROUP 97261 ABDOMINAL 09-14-2014 [facility] PAIN, PHYSICIANS UNSPECIFIED GROUP SITE 4619 ACUTE 08-27-2014 [facility] SINUSITIS, PHYSICIANS UNSPECIFIED GROUP 412 OLD 07-19-2014 [facility] [place]ARD[place] [address] ATRIAL 07-19-2014 [facility] FIBRI[place] 7[address] NONSPECIFIC 07-19-2014 [facility] ABNORMAL LAR ELECTROCARD CONSULTANTS IOGRAM O 5693 HEMORRHAGE 07-03-2014 Gilberto MOMIN OF RECTUM PSC AND ANUS 28442 UNS SHIGA 06-28-2014 SP TOXIN-PRODU [facility] CING E COLI INC INF CLASS ELSW 85890 OBSTRUCTIVE 03-05-2014 [facility] SLEEP [facility] APNEA INC 460 ACUTE 01-06-2014 [facility] NASOPHARYNG ITIS 4739 UNSPECIFIED 01-05-2014 [facility] SINUSITIS [facility] INC 16439 ACOUSTIC 12-01-2013 [facility] TRAUMA TO FRA EAR 57601 UNSPECIFIED 12-01-2013 [facility] TINNITUS FRA 3899 UNSPECIFIED 12-01-2013 [facility] HEARING FRA LOSS 7336 TIETZES 11-09-2013 [facility] DISEASE 06016 PAINFUL 11-06-2013 [facility] 17889 ESOPHAGEAL 11-02-2013 [facility] REFLUX 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 5 MG TA B OM 68 09 10 30 30 00 [...] 75 MA CY MG TA BL ET CL 13 08 09 30 30 00 [...] 17 45 PH E 6 97 AR MD MA OP CY 50 MC G SP [...] L CY 8 MG TA BL ET PA 65 04 05 30 30 00 CL Ac NT 16 -1 -1 .0 00 IN ti OP 20 9- 2- 00 00 IC ve RA 63 20 20 41 ZO 70 17 17 97 PH LE 9 12 AR MA SO CY D DR 40 MG TA B CL 13 04 05 30 30 00 CL Ac OP 66 -1 -1 .0 00 IN ti ID 80 9- 2- 00 00 IC ve OG 14 20 20 40 RE 10 17 17 87 PH L 5 39 AR 75 MA CY MG TA BL ET CL 13 03 04 30 30 00 [...] CY IL 50 0 MG TA B MD 00 01 01 10 5 00 CL [...] 17 57 PH E 9 37 AR MD MA OP CY 50 MC G SP [...] Procedure DOS Code Location Performer Comment ECG 14157 [facility] ROUTINE 7 PHYSICIAN ECG S GROUP W/LEAST 12 LDS I&R ONLY FUNDUS 47602 [facility] PHOTOGRAP 7 HY W/INTERPR ETATION & REPORT ECG 77877 [facility] ROUTINE 7 [facility] ECG INC INC W/LEAST 12 LDS TRCG ONLY W/O I&R LIPID 54174 [facility] PANEL 7 [facility] INC INC COLLECTIO 11065 [facility] N VENOUS 7 [facility] BLOOD INC INC VENIPUNCT URE HEPATIC 52741 [facility] FUNCTION 7 [facility] PANEL INC INC ECG 52605 [facility] ROUTINE 7 [facility] ECG INC INC W/LEAST 12 LDS TRCG ONLY W/O I&R FUNDUS 58243 [facility] PHOTOGRAP 7 HY W/INTERPR ETATION & REPORT FLUORESCE 47893 [facility] IN ANGRPH 7 W/MULTIFR INDIRA I&R UNI/BI OPHTH 10835 SCIFRES SCIFRES MEDICAL 7 XM&EVAL COMPRE NEW PT 1/> VST RADEX 71394 [place] [facility] ESOPHAGUS 7 MEDICAL IMAGING ASS ECG 80192 [facility] ROUTINE 7 [facility] ECG INC INC W/LEAST 12 LDS TRCG ONLY W/O I&R ECG 90576 [facility] ROUTINE 7 PHYSICIAN ECG S GROUP W/LEAST 12 LDS I&R ONLY POLYSOM 86504 [facility] 6/>YRS 7 [facility] SLEEP 4/> INC INC ADDL AYO ATTND ANES 13108 [facility] ANESTH INTESTINE OF THE BLUE ENDOSCOPY DISTAL DUODENUM ECG 89672 [facility] ROUTINE 7 PHYSICIAN ECG S GROUP W/LEAST 12 LDS I&R ONLY CV STRS 80268 [facility] TST 7 [facility] XERS&/OR INC INC RX CONT ECG TRCG ONLY ECG 00094 [facility] ROUTINE 6 [facility] ECG INC INC W/LEAST 12 LDS TRCG ONLY W/O I&[place] [address] [facility] FREE 6 [facility] [address] [facility] THYROID 6 [facility] STIMULATI INC INC NG HORMONE TSH COLLECTIO 65847 [facility] N VENOUS 6 [facility] BLOOD INC INC VENIPUNCT URE CATH PLMT 08234 [facility] MICHELLE L HRT & 6 PHYSICIAN ARTS S GROUP W/NJX & ANGIO IMG S&I COLLECTIO 50685 [facility] N VENOUS 6 [facility] BLOOD INC INC VENIPUNCT URE RADIOLOGI 79816 [facility] C EXAM 6 [facility] CHEST 2 INC INC VIEWS FRONTAL&L ATERAL ECHO 24037 SHAVONNE RYAN TTHRC R-T 6 [facility] [place] 2D SERV W/WOM-MOD FOUNDATIO E COMPL N SPEC&COLR D BASIC 57781 [facility] METABOLIC 6 [facility] PANEL INC INC CALCIUM TOTAL THERAPEUT 55151 [facility] FRYMAN IC 6 PHYSICIAN EUG PROPHYLAC S GROUP TIC/DX INJECTION SUBQ/IM INJECTION J1100 [facility] FR[facility]MAN 6 PHYSICIAN EUG DEXAMETHO S GROUP SONE SODIUM PHOSPHATE 1 MG THER 43943 [facility] PROPH/DX 6 [facility] NJX IV INC INC PUSH SINGLE/1S T SBST/DRUG RADIOLOGI 97270 [facility] C EXAM 6 [facility] CHEST 2 INC INC VIEWS FRONTAL&L ATERAL PRESSURIZ 58544 [facility] ED/NONPRE 6 [facility] SSURIZED INC INC INHALATIO N TREATMENT ANTIBODY 43876 [facility] SCREEN 6 [facility] RBC EACH INC INC SERUM TECHNIQUE BLOOD 57107 [facility] TYPING 6 [facility] SEROLOGIC INC INC ABO COLLECTIO 37839 [facility] N VENOUS 6 [facility] BLOOD INC INC VENIPUNCT URE COMPREHEN 27116 [facility] SIVE 6 [facility] METABOLIC INC INC PANEL THROMBOPL 51631 [facility] ASTIN 6 [facility] TIME INC INC PARTIAL PLASMA/WH OLE BLOOD BLOOD 44875 [facility] TYPING 6 [facility] SEROLOGIC INC INC RH (D) [place] [address] BREANNA BENITES ABDOMEN & 6 MEDICAL MANAN PELVIS IMAGING W/O ASS CONTRAST MATERIAL LIPID 15152 [facility] PANEL 6 [facility] INC INC CULTURE 93137 [facility] BACTERIAL 6 [facility] BLOOD INC INC AEROBIC W/ID ISOLATES PROTHROMB 14335 [facility] IN TIME 6 [facility] INC INC URNLS DIP 13997 [facility] 6 [facility] STICK/TAB INC INC LET REAGENT AUTO MICROSCOP Y BLOOD 64839 [facility] OCCULT 6 [facility] PEROXIDAS INC INC E ACTV QUAL FECES 1-3 SPEC BLOOD 19259 [facility] COUNT 6 [facility] COMPLETE INC INC AUTO&AUTO DIFRNTL WBC DUP-SCAN 37371 [facility] ALL XTR VEINS 6 MEDICAL IMAGING UNILATERA ASS L/LIMITED STUDY PRQ 47879 [facility] MICHELLE TRLUML 6 PHYSICIAN MAT CORONARY S GROUP STENT W/ANGIO ONE ART/BRNCH PRQ 83385 [facility] TRLUML 6 PHYSICIAN MAT CORONARY S GROUP ANGIOPLAS TY ONE ART/BRANC H CATH PLMT 32306 [facility] L HRT & 6 [facility] ARTS INC INC W/NJX & ANGIO IMG S&I BASIC 34531 [facility] METABOLIC 6 [facility] PANEL INC INC CALCIUM TOTAL BLOOD 99147 [facility] COUNT 6 [facility] COMPLETE INC INC AUTO&AUTO DIFRNTL WBC MYOCARDIA 72398 [facility] L SPECT 6 PHYSICIAN MAT MULTIPLE S GROUP STUDIES LIPID 31482 [facility] PANEL 6 [facility] INC INC BLOOD 27168 [facility] COUNT 6 [facility] COMPLETE INC INC AUTO&[place] [address] [facility] THYROXINE 6 [facility] [place] [address] [facility] THYROID 6 [facility] STIMULATI INC INC NG HORMONE TSH COMPREHEN 02522 [facility] SIVE 6 [facility] METABOLIC INC INC PANEL ECG 14449 [facility] ROUTINE 6 [facility] ECG INC INC W/LEAST 12 LDS TRCG ONLY W/O I&R XTRNL ECG 42322 SP WADE JR 5 [facility] S RHYTHM P W/I&R UP TO 48 HRS EXTERNAL 59340 [facility] ECG 5 [facility] SCANNING INC INC ANALYSIS REPORT XTRNL ECG 70537 [facility] & 48 HR 5 [facility] RECORDING INC INC ECG 83773 [facility] ROUTINE 5 [facility] ECG INC INC W/LEAST 12 LDS TRCG ONLY W/O I&R E-STIM G0283 [facility] 1/> AREAS 5 [facility] OTH THAN INC INC WND CARE PART TX PLAN APPLICATI 34135 [facility] ON 5 [facility] MODALITY INC INC 1/> AREAS HOT/COLD PACKS APPL 10490 [facility] MODALITY 5 [facility] 1/> AREAS INC INC ULTRASOUN D EA 15 MIN THERAPEUT 62682 [facility] IC PX 1/> 5 [facility] AREAS INC INC EACH 15 MIN EXERCISES MANUAL 74554 [facility] THERAPY 5 [facility] TQS 1/> INC INC REGIONS EACH 15 MINUTES THERAPEUT 27755 [facility] IC PX 1/> 5 [facility] AREAS INC INC EACH 15 MIN EXERCISES E-STIM G0283 [facility] 1/> AREAS 5 [facility] OTH THAN INC INC WND CARE PART TX PLAN APPLICATI 85835 [facility] ON 5 [facility] MODALITY INC INC 1/> AREAS HOT/COLD PACKS APPLICATI 29412 [facility] ON 5 [facility] MODALITY INC INC 1/> AREAS HOT/COLD PACKS E-STIM G0283 [facility] 1/> AREAS 5 [facility] OTH THAN INC INC WND CARE PART TX PLAN THERAPEUT 70498 [facility] IC PX 1/> 5 [facility] AREAS INC INC EACH 15 MIN EXERCISES MANUAL 72426 [facility] THERAPY 5 [facility] TQS 1/> INC INC REGIONS EACH 15 MINUTES E-STIM G0283 [facility] 1/> AREAS 5 [facility] OTH THAN INC INC WND CARE PART TX PLAN APPLICATI 29861 [facility] ON 5 [facility] MODALITY INC INC 1/> AREAS HOT/COLD PACKS MANUAL 63455 [facility] THERAPY 5 [facility] TQS 1/> INC INC REGIONS EACH 15 MINUTES APPLICATI 22887 [facility] ON 5 [facility] MODALITY INC INC 1/> AREAS HOT/COLD PACKS E-STIM G0283 [facility] 1/> AREAS 5 [facility] OTH THAN INC INC WND CARE PART TX PLAN APPL 85634 [facility] MODALITY 5 [facility] 1/> AREAS INC INC TRACTION MECHANICA L E-STIM G0283 [facility] 1/> AREAS 5 [facility] OTH THAN INC INC WND CARE PART TX PLAN THERAPEUT 35184 [facility] IC PX 1/> 5 [facility] AREAS INC INC EACH 15 MIN EXERCISES APPLICATI 20196 [facility] ON 5 [facility] MODALITY INC INC 1/> AREAS HOT/COLD PACKS MANUAL 45578 [facility] THERAPY 5 [facility] TQS 1/> INC INC REGIONS EACH 15 MINUTES PHYSICAL 27273 [facility] THERAPY 5 [facility] EVALUATIO INC INC N RADEX 09392 [facility] TRA SPINE 5 [place] LUMBOSACR ORTHOPAED AL 2/3 [facility] VIEWS THERAPEUT 66641 SP [facility] IC 5 [facility] TIC/DX INJECTION SUBQ/IM INJECTION J1885 SP YMAN 5 [facility] INE PER 15 MG COLLECTIO 68484 SP SP N VENOUS 5 [facility] [place] [address] [facility] THYROID 5 [facility] STIMULATI [place] [address] [facility] FREE 5 [facility] THYROXINE INC INC COMPREHEN 50475 [facility] SIVE 5 [facility] METABOLIC INC INC PANEL BLOOD 83124 [facility] COUNT 5 [facility] COMPLETE INC INC AUTO&AUTO DIFRNTL WBC LIPID 89306 [facility] PANEL 5 [facility] INC INC DUP-SCAN 39751 [facility] XTR VEINS 5 [facility] INC INC UNILATERA L/LIMITED STUDY RADEX 64298 [facility] SPINE 5 [facility] LUMBOSACR INC INC AL MINIMUM 4 VIEWS RADEX 19710 [facility] SPINE 5 [place] LUM[facility] ORTHOPAED AL 2/3 [facility] VIEWS RADEX 10504 [facility] TRA SPINE 5 [place] LUMBOSA[place] ORTHOPAED AL 2/3 [facility] VIEWS OPHTH 31253 [facility] 5 GRE GRE XM&EVAL COMPRHNSV ESTAB PT 1/> VISUAL 76687 [facility] XM 5 GRE GRE UNI/BI W/INTERP EXTENDED EXAM ECG 93581 [facility] ROUTINE 5 [facility] ECG INC INC W/LEAST 12 LDS TRCG ONLY W/O I&R BASIC 65414 [facility] METABOLIC 5 [facility] PANEL INC INC CALCIUM TOTAL COLLECTIO 08391 [facility] N VENOUS 5 [facility] BLOOD INC INC VENIPUNCT URE MRI 15403 [facility] TRA SPINAL 5 [place] CANAL ORTHOPAED LUMBAR [facility]CS PLC W/O CONTRAST MATERIAL ECG 75801 [facility] ROUTINE 5 [facility] ECG INC INC W/LEAST 12 LDS TRCG ONLY W/O I&R ECG 14640 [facility] ROUTINE 5 [facility] ECG INC INC W/LEAST 12 LDS TRCG ONLY W/O I&R URINLS 49998 A C FIELD AMB DIP 5 [facility] SKAG[facility] STICK/TAB PSC [place] [address] [facility] PROSTATE 5 DIAGNOSTI DIAGNOSTI SPECIFIC CS CS ANTIGEN TOTAL RADEX 77862 [facility] SPINE 5 [facility] THORACIC IMAGING 2 VIEWS ASS RADEX 64519 [place] [facility] SPINE 5 MEDICAL [facility] LUMBOSACR IMAGING AL 2/[place] [address] P&C LABS, SERRANO SURG 5 [facility] PATHOLOGY GROSS&VAN ROSCOPIC EXAM [place] 98014 [facility] PY 5 [facility] W/BIOPSY INC INC SINGLE/MU LTIPLE ANES 89593 [facility] ANESTH SHE INTESTINE OF THE BLUE ENDOSCOPY DISTAL DUODENUM CV STRS 56192 [facility] TST 5 [facility] XERS&/OR INC INC RX CONT ECG TRCG ONLY ECHO 82148 SHAVONNE WHITTEN DEVANG TTHRC R-T 5 MEDICAL 2D SERV W/WOM-MOD FOUNDATIO E COMPL N SPEC&COLR D CV STRS 43525 [facility] TST 5 CULAR MAT XERS&/OR CONSULTAN RX CONT TS O ECG I&R ONLY ECG 82117 [facility] ROUTINE 5 [facility] ECG INC INC W/LEAST 12 LDS TRCG ONLY W/O I&R BLOOD 28611 A C FIELD AMB COUNT 5 LILIANE SKAGGS COMPLETE PSC AUTO&AUTO DIFRNTL WBC URINLS 33980 A C FIELD AMB DIP 5 LILIANE SKAGGS STICK/TAB PSC LET REAGNT NON-AUTO MICRSCPY INF AGENT 28854 [facility] DET 5 [facility] NUCLEIC INC INC ACID CLOSTRIDI UM AMP PROBE BLOOD 49700 [facility] OCCULT 5 [facility] PEROXIDAS INC INC E ACTV QUAL FECES 1-3 SPEC IADNA NOS 02-05-201 66106 [facility] AMPLIFIED INC INC PROBE TQ EACH ORGANISM CHANNEL PROCESS SUPERVISOR STDY 20233 [facility] UNATND 4 [facility] W/HRT INC INC RATE/O2 SAT/RESP/ [place] [address] KAMARI KAMARI MAXILLOFA 4 MANAN MANAN CIAL W/O CONTRAST MATERIAL THERAPEUT 86924 FIELD AMB FIELD AMB IC 4 PROPHYLAC TIC/DX INJECTION SUBQ/IM INJECTION J1885 FIELD AMB FIELD AMB 4 KETOROLAC TROMETHAM INE PER 15 MG RADIOLOGI 26834 KAMARI KAMARI C EXAM 4 MANAN MANAN CHEST 2 VIEWS FRONTAL&L ATERAL DETERMINA 15599 [facility] GRE GRE REFRACTIV E STATE OPHTH 08719 [facility] 4 GRE GRE XM&EVAL COMPRE NEW PT 1/> VST CREATININ 57216 [facility] E BLOOD 4 [facility] INC INC INJECTION A9576 [facility] GADOTERID INC INC OL PROHANCE MULTIPACK PER ML MRI BRAIN 64021 [facility] BRAIN 4 [facility] STEM W/O INC INC W/[place] [address] [facility] UREA 4 [facility] NITROGEN INC INC QUANTITAT SIDDHARTH Encounters Encounter Start End Date Code Location Performer Type Date OFFICE 63851 [facility] MICHELLE OUTPATIEN 7 7 PHYSICIAN T VISIT S GROUP 25 MINUTES OFFICE 79749 [facility] OUTPATI[facility] 7 7 T VISIT 10 MINUTES OFFICE 46625 [facility] 7 7 T VISIT 25 MINUTES HOSPITAL SP - 7 7 [facility] OUTPATI[facility] INC T OFFICE 81520 [facility] MICHELLE OUTPATIEN 7 7 PHYSICIAN T VISIT S GROUP 25 MINUTES HOSPITAL SP - 7 7 [facility] OUTPATI[facility] INC T HOSPITAL SP - 7 7 [facility] OUTPATI[facility] INC T OFFICE 25624 [facility] 7 7 T NEW 45 MINUTES HOSPITAL SP - 7 7 [facility] OUTPATIEN INC T OFFICE 46104 [facility] MICHELLE OUTPATIEN 7 7 PHYSICIAN T [facility]ISIT S GROUP 40 MINUTES HOSPITAL SP - 7 7 [facility]PATI[facility] INC T HOSPITAL SP - 7 7 [facility] INC T OFFICE 13356 [facility] FINESSE CONSULTAT 7 7 PHYSICIAN ION S GROUP NEW/ESTAB PATIENT 40 MIN OFFICE 32946 [facility] MICHELLE OUTPATIEN 7 7 PHYSICIAN T VISIT S GROUP 15 MINUTES HOSPITAL SP - 7 7 [facility] OUTPATIEN INC T OFFICE 68407 [facility] STONE OUTPATIEN 7 7 PHYSICIAN T VISIT S GROUP 25 MINUTES OFFICE 36998 [facility] OUTPATIEN 6 6 PHYSICIAN T VISIT S GROUP 40 MINUTES HOSPITAL SP - 6 6 [facility] INC T OFFICE 73436 [facility] [place] OUTPATIEN 6 6 PHYSICIAN EUG T VISIT S GROUP 25 MINUTES HOSPITAL SP - 6 6 [facility] INC T OFFICE 48160 [facility] [place] OUTPATIEN 6 6 PHYSICIAN EUG T VISIT S GROUP 25 MINUTES OFFICE 14072 [facility] JIE OUTPATIEN 6 6 PHYSICIAN COOK T VISIT S GROUP 15 MINUTES HOSPITAL SP - 6 6 [facility] OUTPATI[facility] INC T EMERGENCY 29928 MIRIAM MAGANA 6 6 PHYSICIAN DEPARTMEN S, [facility] T VISIT HIGH/URGE NT SEVERITY EMERGENCY 87577 SP 6 6 [facility] DEPARTMEN INC T VISIT MODERATE SEVERITY HOSPITAL SP - 6 6 [facility] OUT[facility] INC T OFFICE 72126 [facility] [place] OUTPATIEN 6 6 PHYSICIAN EUG T VISIT S GROUP 15 MINUTES OFFICE 91296 [facility] [place] OUTPATIEN 6 6 PHYSICIAN EUG T VISIT S GROUP 15 MINUTES HOSPITAL SP - 6 6 [facility] OUTPATI[facility] INC T OFFICE 05599 [facility] [place] OUTPATIEN 6 6 PHYSICIAN VAN T VISIT S GROUP 10 MINUTES HOSPITAL SP - 6 6 [facility] OUTPATIEN INC T [facility] SP - 5 5 [facility] OUTPATIEN INC [facility] SP - 5 5 [facility] T OFFICE 31256 [facility] [place] [facility] MIN[facility] SP [facility] 5 5 [facility]PATI[facility] INC T OFFICE 24519 SP [facility] OUTPATIEN 5 5 [facility] T VISIT [facility] 15 MINUTES HOSPITAL SP - 5 5 [facility] OUTPATIEN INC T OFFICE 39304 [facility] [place] [facility] MINUTES OFFICE 94144 SP [facility] OUTPATIEN 5 5 [facility] VISIT [facility] 15 MINUTES HOSPITAL SP - 5 5 [facility] OUTPATIEN INC [facility] SP - 5 5 [facility] INC T OFFICE 16879 SP [facility] OUTPATIEN 5 5 [facility] T VISIT HOSPITAL 15 MINUTES OFFICE 53190 [facility] [place] [facility] MIN[facility] OFFICE 24910 [facility] 5 5 [place] [facility]ED [facility] MINUTES EMERGENCY 55305 SP 5 5 [facility] T VISIT LOW/MODER SEVERITY EMERGENCY 27293 MIRIAM Rashid 5 5 PHYSICIAN CHRISTINE S [facility] T VISIT MODERATE SEVERITY HOSPITAL SP - 5 5 [facility] OUTPATIEN INC T HOSPITAL SP - 5 5 [facility] OUTPATIEN INC T [facility] SP - 5 5 [facility] INC T OFFICE 17688 [facility] 5 5 [place] [facility] VIS[facility] 15 [facility] MINUTES [facility]OSP[facility] SP [facility] 5 5 [facility] OFFICE 33628 [facility] CONSULTAT 5 5 [place] ION ORTHOPAED NEW/ESTAB [facility] PATIENT 40 MIN HOSPITAL SP - 5 5 [facility] OUTPATIEN INC T OFFICE 48615 Gilberto MOLINA AMB OUTPATIEN 5 5 LILIANE SKAGGS T VISIT PSC 15 MINUTES EMERGENCY 63978 MIRIAM AGARWAL 5 5 PHYSICIAN JOYCE Jordan [facility] T VISIT HIGH/URGE NT SEVERITY OFFICE 69160 [facility] FINESSE TOD OUTPATIEN 5 5 PHYSICIAN T VISIT S GROUP 15 MINUTES HOSPITAL SP - 5 5 [facility] OFF[facility] 60929 [facility] [place] OUTPATIEN 5 5 PHYSICIAN EUG T VISIT S GROUP 15 MINUTES HOSPITAL SP - 5 5 [facility] OUTPATIEN INC T [facility]OSPITAL SP - 5 5 [facility] OUTPATIEN INC T OFFICE 82189 [facility] FINESSE TOD CONSULTAT 5 5 PHYSICIAN ION S GROUP NEW/ESTAB PATIENT 60 MIN OFFICE 90117 Gilberto C FIELD AMB OUTPATIEN 5 5 LILIANE SKAGGS T VISIT PSC 15 MINUTES HOSPITAL SP - 5 5 [facility] OUTPATIEN INC T [facility]OSPITAL SP - 4 4 [facility] OUTPATIEN INC T OFFICE 98130 [facility] C[facility]NER[facility] OUTPATIEN 4 4 [facility] T VISIT 15 MINUTES HOSPITAL SP - 4 4 [facility] OUTPATIEN INC T OFFICE 12067 RONNELL MONGIARDO CONSULTAT 4 4 FRA FRA ION NEW/ESTAB PATIENT 40 MIN OFFICE 44528 FIELD AMB FIELD AMB OUTPATIEN 4 4 T VISIT 15 MINUTES EMERGENCY 45988 ALFARIS ALFARIS DEPT 4 4 [facility] VISIT HIGH SEVERITY& THREAT FUNCJ OFFICE 21252 FIELD AMB FIELD AMB OUTPATIEN 4 4 T VISIT 15 MINUTES EMERGENCY 65261 ARUN ESME ARUN ESME 4 4 DEPARTMEN T VISIT MODERATE SEVERITY OFFICE 60839 [facility] OUTPATIEN 4 4 PHYSICIAN T VISIT S GROUP 10 MINUTES OFFICE 30390 FIELD AMB FIELD AMB OUTPATIEN 4 4 T VISIT 15 MINUTES HOSPITAL SP - 4 4 [facility] OUTPATIEN INC T OFFICE 73341 FIELD AMB FIELD AMB OUTPATIEN 4 4 T NEW 20 MINUTES OFFICE 49087 [facility] OUTPATIEN 4 4 T NEW 30 MINUTES
--- OUTSIDE RECORDS SUMMARY | 2017-03-17 11:13 | External Medical Summary Rpt | CCD ---
Author Author , RIO Organization [employer] Address Unknown Phone [email or web address] Care Team Providers Care Budget Clerk Name Role Phone A Violet MOMIN MD [...] Unavailable Unavailable [facility] Unavailable Unavailable [facility], [facility], Unavailable Unavailable [facility] PERRYCASIMIRO MAGANA, VICKY MAGANA [...] Diagnosis DOS Provider Status I10 ESSENTIAL 02-09-2017 [facility] PRIMARY PHYSICIANS HYPERTENSIO GROUP N I2510 ASHD MARSHALL 02-09-2017 [facility] 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 I4510 UNSPECIFIED 02-09-2017 [facility] RIGHT PHYSICIANS BUNDLE-BRAN GROUP CH BLOCK K449 DIAPHRAGMAT 02-09-2017 [facility] IC HERNIA PHYSICIANS W/O GROUP OBSTRUCTION OR GANGRENE Z955 PRESENCE OF 02-09-2017 [facility] CORONARY PHYSICIANS ANGIOPLASTY GROUP IMPLANT & GRAFT [id number] HYPERTENSIV 01-14-2017 [facility] E RETINOPATHY BILATERAL [id number] NONEXU 01-08-2017 [facility] AGE-REL MACULAR DEG LT EYE INTRMD DRY STG [id number] EXUDATIVE 01-08-2017 [facility] AGE-RELATED MAC DEG RT EYE INACTV CNV E785 HYPERLIPIDE 11-10-2016 [facility] KEVIN PHYSICIANS UNSPECIFIED GROUP G4733 OBSTRUCTIVE 11-10-2016 [facility] SLEEP [facility] APNEA ADULT INC PEDIATRIC I119 HYPERTENSIV 11-10-2016 [facility] E HEART PHYSICIANS DISEASE GROUP WITHOUT HEART FAILURE K219 GASTRO-ESOP 11-10-2016 [facility] H REFLUX PHYSICIANS DISEASE GROUP WITHOUT ESOPHAGITIS [id number] NONEXUD 10-09-2016 [facility] AGE-REL MAC DEGEN TRU INTERMED DRY STAGE H524 PRESBYOPIA 09-11-2016 [facility] R0602 SHORTNESS 07-31-2016 [facility] OF BREATH [facility] R079 CHEST PAIN 07-31-2016 [facility] UNSPECIFIED MEDICAL IMAGING ASS R4702 DYSPHASIA 07-31-2016 [facility] Z720 TOBACCO USE 07-28-2016 [facility] R0681 APNEA NOT 07-22-2016 [facility] ELSE[facility] CLASSIFIED INC K635 POLYP OF 07-09-2016 [facility] COLON ANESTH OF THE BLUE K921 MELENA 07-09-2016 [facility] ANESTH OF THE BLUE K625 HEMORRHAGE 06-24-2016 [facility] OF ANUS AND PHYSICIANS RECTUM GROUP [id number] PERSONAL 06-24-2016 [facility] HISTORY OF PHYSICIANS COLONIC GROUP POLYPS R001 BRADYCARDIA 06-12-2016 [facility] PHYSICIANS UNSPECIFIED GROUP J0100 ACUTE 05-26-2016 [facility] MAXILLARY PHYSICIANS SINUSITIS GROUP UNSPECIFIED R531 WEAKNESS 05-26-2016 [facility] R5383 OTHER 05-26-2016 [facility] FATIGUE [facility] INC R9431 ABNORMAL 05-26-2016 [facility] ELECTROCARD [facility] IOGRAM INC R55 SYNCOPE AND 05-19-2016 [facility] COLLAPSE PHYSICIANS GROUP I208 OTHER FORMS 04-29-2016 [facility] OF ANGINA PHYSICIANS PECTORIS GROUP [id number] ASHD MARSHALL 04-29-2016 [facility] COR ART PHYSICIANS W/OTH FORMS GROUP ANGINA PECTORIS I209 ANGINA 04-24-2016 [place] PECTORIS MEDICAL UNSPECIFIED IMAGING ASS I340 NONRHEUMATI 04-24-2016 [facility] SERV [facility] INSUFFICIEN CY J209 ACUTE 01-28-2016 [facility] BRONCHITIS PHYSICIANS UNSPECIFIED GROUP J329 CHRONIC 01-18-2016 [facility] SINUSITIS PHYSICIANS UNSPECIFIED GROUP J40 BRONCHITIS 01-13-2016 [facility] NOT PHYSICIANS, SPECIFIED PLLC ACUTE OR CHRONIC K828 OTHER 01-13-2016 [place] SPECIFIED MEDICAL DISEASES OF IMAGING ASS GALLBLADDER K922 GASTROINTES 01-13-2016 [facility] KEARNSAL PHYSICIANS, HEMORRHAGE PLLC UNSPECIFIED R05 COUGH 01-13-2016 [facility] [facility] Z8551 PERSONAL 01-13-2016 [place] HISTORY MEDICAL MALIGNANT IMAGING ASS NEOPLASM OF BLADDER Z23253 PAIN IN 01-02-2016 [place] RIGHT ARM MEDICAL IMAGING ASS [id number] [facility] MARSHALL 12-24-2015 [facility] COR ARTREY [facility] W/UNS INC ANGINA PECTORIS R9439 ABNORMAL 12-24-2015 SP RESULT OTH [facility] CARDIOVASCU INC LR FUNCTION STUDY H6690 OTITIS 11-13-2015 [facility] MEDIA PHYSICIANS UNSPECIFIED GROUP UNSPECIFIED EAR G4730 SLEEP APNEA 09-18-2015 [facility] PHYSICIANS UNSPECIFIED GROUP J3489 OTHER 09-18-2015 [facility] SPECIFIED PHYSICIANS DISORDERS GROUP NOSE AND NASAL SINUSES M5126 OTH 05-09-2015 [facility] [place] INTERVERTEB ORTHOPAEDIC RAL DISC S PLC DISPLACEMEN T LUMBAR RGN M549 DORSALGIA 04-23-2015 [facility] UNSPECIFIED [facility] INC P75891 PAIN IN LEG 04-23-2015 [facility] UNSPECIFIED INC B57559 PAIN IN 04-16-2015 [facility] M545 LOW BACK 04-01-2015 [facility] [place] PAIN ORTHOPAEDIC S PLC [id number] OTH FX 1ST 04-01-2015 [facility] [place] LUMB VERT ORTHOPAEDIC SUBSEQUENT S PLC ENC FX RTN HLNG C679 MALIGNANT 03-22-2015 [facility] NEOPLASM OF [facility] BLADDER INC UNSPECIFIED E041 NONTOXIC 03-22-2015 [facility] SINGLE [facility] THYROID INC NODULE M34664 PAIN IN 03-21-2015 [place] RIGHT LEG MEDICAL IMAGING ASS R600 LOCALIZED 03-21-2015 [facility] 8054 CLOS FX 01-17-2015 [facility] [place] LUMB ORTHOPAEDIC VERTEBRA S PLC W/O MENTION SP CORD INJURY 9895 TOXIC 12-13-2014 [facility] EFFECT OF PHYSICIANS, [facility] V1582 PERS HX 12-13-2014 SP TOBACCO USE [facility] PRESENTING INC [facility] 78769 BORDERLINE 12-06-2014 [facility] GLAUC OPEN GRE ANGLE BL FINDINGS LOW RSK 78556 OTHER 12-06-2014 [facility] VISUAL GRE DISTORTIONS AND ENTOPTIC PHENOMENA 21144 OTHER 12-06-2014 [facility] VITREOUS GRE OPACITIES 4019 UNSPECIFIED 11-20-2014 [facility] ESSENTIAL [facility] HYPERTENSIO INC N 81672 OTHER 11-20-2014 SP SPECIFIED [facility] CARDIAC INC DYSRHYTHMIA S 00897 CHEST PAIN 11-20-2014 [facility] UNSPECIFIED [facility] INC 7242 LUMBAGO 11-12-2014 [facility] [place]OP[place] PLC 19480 HEMATURIA 10-11-2014 [facility] UNSPECIFIED DIAGNOSTICS 7245 UNSPECIFIED 10-09-2014 [place] BACKACHE MEDICAL IMAGING ASS 0093 DIARRHEA OF 09-24-2014 [facility] PRESUMED PHYSICIANS INFECTIOUS GROUP ORIGIN 2113 BENIGN 09-24-2014 [facility] NEOPLASM OF PHYSICIANS COLON GROUP 5781 BLOOD IN 09-24-2014 [facility] STOOL PHYSICIANS GROUP 45089 ABDOMINAL 09-24-2014 [facility] PAIN OTHER PHYSICIANS SPECIFIED GROUP SITE 52203 DIVERTICULO 09-14-2014 [facility] SIS OF PHYSICIANS COLON GROUP 51314 DIARRHEA 09-14-2014 [facility] PHYSICIANS GROUP 08673 ABDOMINAL 09-14-2014 [facility] PAIN, PHYSICIANS UNSPECIFIED GROUP SITE 4619 ACUTE 08-27-2014 [facility] SINUSITIS, PHYSICIANS UNSPECIFIED GROUP 412 OLD 07-19-2014 [facility] [place] [address] ATRIAL 07-19-2014 [facility] [place] [address] NONSPECIFIC 07-19-2014 [facility] ABNORMAL LAR ELECTROCARD [facility]ANTS IOGRAM O 5693 HEMORRHAGE 07-03-2014 [facility] MOMIN OF RECTUM PSC AND ANUS 39907 UNS SHIGA 06-28-2014 [facility] TOXIN-PRODU [facility] CING E COLI INC INF CLASS ELSW 99705 OBSTRUCTIVE 03-05-2014 [facility] SLEEP [facility] APNEA INC 460 ACUTE 01-06-2014 [facility] NASOPHARYNG ITIS 4739 UNSPECIFIED 01-05-2014 [facility] SINUSITIS [facility] INC 09885 ACOUSTIC 12-01-2013 [facility] TRAUMA TO FRA EAR 41565 UNSPECIFIED 12-01-2013 [facility] TINNITUS FRA 3899 UNSPECIFIED 12-01-2013 [facility] HEARING FRA LOSS 7336 TIETZES 11-09-2013 [facility] DISEASE 61003 PAINFUL 11-06-2013 [facility] RESPIRATION 87338 ESOPHAGEAL 11-02-2013 [facility] REFLUX 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 4659 ACUTE URIS 10-13-2013 [facility] ESME OF UNSPECIFIED SITE 496 CHRONIC 10-13-2013 [facility] AIRWAY OBSTRUCTION NEC 3670 HYPERMETROP 10-07-2013 [facility] IA GRE 7840 HEADACHE 07-05-2013 [facility] 01994 OTHER 07-03-2013 [facility] MALAISE AND FATIGUE [...] 17 45 PH E 6 97 AR WV MA OP CY 50 MC G SP [...] CY IL 50 0 MG TA B WV 00 01 01 10 5 00 CL [...] 17 57 PH E 9 37 AR WV MA OP CY 50 MC G SP [...] Procedure DOS Code Location Performer Comment ECG 65512 [facility] ROUTINE 7 PHYSICIAN ECG S GROUP W/LEAST 12 LDS I&R ONLY FUNDUS 78990 [facility] PHOTOGRAP 7 HY W/INTERPR ETATION & REPORT ECG 18727 [facility] ROUTINE 7 [facility] ECG INC INC W/LEAST 12 LDS TRCG ONLY W/O I&R LIPID 06061 [facility] PANEL 7 [facility] INC INC COLLECTIO 22942 [facility] N VENOUS 7 [facility] BLOOD INC INC VENIPUNCT URE HEPATIC 68188 [facility] FUNCTION 7 [facility] PANEL INC INC ECG 41355 [facility] ROUTINE 7 [facility] ECG INC INC W/LEAST 12 LDS TRCG ONLY W/O I&R FUNDUS 80398 [facility] PHOTOGRAP 7 HY W/INTERPR ETATION & REPORT FLUORESCE 28760 [facility] IN ANGRPH 7 W/MULTIFR INDIRA I&R UNI/BI OPHTH 37265 SCIFRES SCIFRES MEDICAL 7 XM&EVAL COMPRE NEW PT 1/> VST RADEX 50749 [place] ORO ESOPHAGUS 7 MEDICAL IMAGING ASS ECG 36308 [facility] ROUTINE 7 [facility] ECG INC INC W/LEAST 12 LDS TRCG ONLY W/O I&R ECG 87894 [facility] ROUTINE 7 PHYSICIAN ECG S GROUP W/LEAST 12 LDS I&R ONLY POLYSOM 62891 [facility] 6/>YRS 7 [facility] SLEEP 4/> INC INC ADDL AYO ATTND ANES 07285 [facility] 7 ANESTH INTESTINE OF THE BLUE ENDOSCOPY DISTAL DUODENUM ECG 97887 [facility] ROUTINE 7 PHYSICIAN ECG S GROUP W/LEAST 12 LDS I&R ONLY CV STRS 03765 [facility] TST 7 [facility] XERS&/OR INC INC RX CONT ECG TRCG ONLY ECG 15535 [facility] ROUTINE 6 [facility] ECG INC INC W/LEAST 12 LDS TRCG ONLY W/O I&[place] [address] [facility] FREE 6 [facility] [place] [address] [facility] THYROID 6 [facility] STIMULATI INC INC NG HORMONE TSH COLLECTIO 35862 [facility] N VENOUS 6 [facility] BLOOD INC INC VENIPUNCT URE CATH PLMT 88023 [facility] MICHELLE L HRT & 6 PHYSICIAN ARTS S GROUP W/NJX & ANGIO IMG S&I COLLECTIO 27572 [facility] N VENOUS 6 [facility] BLOOD INC INC VENIPUNCT URE RADIOLOGI 80356 [facility] C EXAM 6 [facility] CHEST 2 INC INC VIEWS FRONTAL&L ATERAL ECHO 98543 SH[facility] RYAN TTHRC R-T 6 MEDICAL [place] 2D SERV W/WOM-MOD FOUNDATIO E COMPL N SPEC&COLR D BASIC 55622 [facility] METABOLIC 6 [facility] PANEL INC INC CALCIUM TOTAL THERAPEUT 98463 [facility] FRYMAN IC 6 PHYSICIAN EUG PROPHYLAC S GROUP TIC/DX INJECTION SUBQ/IM INJECTION J1100 [facility] FRYMAN 6 PHYSICIAN EUG DEXAMETHO S GROUP SONE SODIUM PHOSPHATE 1 MG THER 05339 [facility] PROPH/DX 6 [facility] NJX IV INC INC PUSH SINGLE/1S T SBST/DRUG RADIOLOGI 38099 [facility] C EXAM 6 [facility] CHEST 2 INC INC VIEWS FRONTAL&L ATERAL PRESSURIZ 16093 [facility] ED/NONPRE 6 [facility] SSURIZED INC INC INHALATIO N TREATMENT ANTIBODY 88403 [facility] SCREEN 6 [facility] RBC EACH INC INC SERUM TECHNIQUE BLOOD 97654 [facility] TYPING 6 [facility] SEROLOGIC INC INC ABO COLLECTIO 85546 [facility] N [facility]ENOUS 6 [facility] BLOOD INC INC VENIPUNCT URE COMPREHEN 31731 [facility] SIVE 6 [facility] METABOLIC INC INC PANEL THROMBOPL 44179 [facility] ASTIN 6 [facility] TIME INC INC PARTIAL PLASMA/WH OLE BLOOD BLOOD 02486 [facility] TYPING 6 [facility] SEROLOGIC INC INC RH (D) [place] [address] BREANNA BENITES ABDOMEN & 6 MEDICAL MANAN PELVIS IMAGING W/O ASS CONTRAST MATERIAL LIPID 49282 [facility] PANEL 6 [facility] INC INC CULTURE 39302 [facility] BACTERIAL 6 [facility] BLOOD INC INC AEROBIC W/ID ISOLATES PROTHROMB 95242 [facility] IN TIME 6 [facility] INC INC URNLS DIP 34705 [facility] 6 [facility] STICK/TAB INC INC LET REAGENT AUTO MICROSCOP Y BLOOD 39877 [facility] OCCULT 6 [facility] PEROXIDAS INC INC E ACTV QUAL FECES 1-3 SPEC BLOOD 56390 [facility] COUNT 6 [facility] COMPLETE INC INC AUTO&AUTO DIFRNTL WBC DUP-SCAN 68123 [facility] PREETHI ALL XTR VEINS 6 MEDICAL IMAGING UNILATERA ASS L/LIMITED STUDY PRQ 42972 [facility] MICHELLE TRLUML 6 PHYSICIAN MAT CORONARY S GROUP STENT W/ANGIO ONE ART/BRNCH PRQ 34853 [facility] MICHELLE TRLUML 6 PHYSICIAN MAT CORONARY S GROUP ANGIOPLAS TY ONE ART/BRANC H CATH PLMT 20746 [facility] L HRT & 6 [facility] ARTS INC INC W/NJX & ANGIO IMG S&I BASIC 13205 [facility] METABOLIC 6 [facility] PANEL INC INC CALCIUM TOTAL BLOOD 81590 [facility] COUNT 6 [facility] COMPLETE INC INC AUTO&AUTO DIFRNTL WBC MYOCARDIA 12956 [facility] MICHELLE L SPECT 6 PHYSICIAN MAT MULTIPLE S GROUP STUDIES LIPID 16732 [facility] PANEL 6 [facility] INC INC BLOOD 58434 [facility] COUNT 6 [facility] COMPLETE INC INC AUTO&[place] [address] [facility] THYROXINE 6 [facility] [place] [address] [facility] THYROID 6 [facility] STIMULATI INC INC NG HORMONE TSH COMPREHEN 15710 [facility] SIVE 6 [facility] METABOLIC INC INC PANEL ECG 62234 [facility] ROUTINE 6 [facility] ECG INC INC W/LEAST 12 LDS TRCG ONLY W/O I&R XTRNL ECG 24299 SP WADE JR 5 [facility] S RHYTHM P W/I&R UP TO 48 HRS EXTERNAL 53976 [facility] ECG 5 [facility] SCANNING INC INC ANALYSIS REPORT XTRNL ECG 38226 [facility] & 48 HR 5 [facility] RECORDING INC INC ECG 84981 [facility] ROUTINE 5 [facility] ECG INC INC W/LEAST 12 LDS TRCG ONLY W/O I&R E-STIM G0283 [facility] 1/> AREAS 5 [facility] OTH THAN INC INC WND CARE PART TX PLAN APPLICATI 77581 [facility] ON 5 [facility] MODALITY INC INC 1/> AREAS HOT/COLD PACKS APPL 74706 [facility] MODALITY 5 [facility] 1/> AREAS INC INC ULTRASOUN D EA 15 MIN THERAPEUT 29901 [facility] IC PX 1/> 5 [facility] AREAS INC INC EACH 15 MIN EXERCISES MANUAL 46771 [facility] THERAPY 5 [facility] TQS 1/> INC INC REGIONS EACH 15 MINUTES THERAPEUT 89969 [facility] IC PX 1/> 5 [facility] AREAS INC INC EACH 15 MIN EXERCISES E-STIM G0283 [facility] 1/> AREAS 5 [facility] OTH THAN INC INC WND CARE PART TX PLAN APPLICATI 12527 [facility] ON 5 [facility] MODALITY INC INC 1/> AREAS HOT/COLD PACKS APPLICATI 23105 [facility] ON 5 [facility] MODALITY INC INC 1/> AREAS HOT/COLD PACKS E-STIM G0283 [facility] 1/> AREAS 5 [facility] OTH THAN INC INC WND CARE PART TX PLAN THERAPEUT 29614 [facility] IC PX 1/> 5 [facility] AREAS INC INC EACH 15 MIN EXERCISES MANUAL 39713 [facility] THERAPY 5 [facility] TQS 1/> INC INC REGIONS EACH 15 MINUTES E-STIM G0283 [facility] 1/> AREAS 5 [facility] OTH THAN INC INC WND CARE PART TX PLAN APPLICATI 05929 [facility] ON 5 [facility] MODALITY INC INC 1/> AREAS HOT/COLD PACKS MANUAL 76023 [facility] THERAPY 5 [facility] TQS 1/> INC INC REGIONS EACH 15 MINUTES APPLICATI 09814 [facility] ON 5 [facility] MODALITY INC INC 1/> AREAS HOT/COLD PACKS E-STIM G0283 [facility] 1/> AREAS 5 [facility] OTH THAN INC INC WND CARE PART TX PLAN APPL 14151 [facility] MODALITY 5 [facility] 1/> AREAS INC INC TRACTION MECHANICA L E-STIM G0283 [facility] 1/> AREAS 5 [facility]OS[facility] OTH THAN INC INC WND CARE PART TX PLAN THERAPEUT 14714 [facility] IC PX 1/> 5 [facility] AREAS INC INC EACH 15 MIN EXERCISES APPLICATI 60451 [facility] ON 5 [facility] MODALITY INC INC 1/> AREAS HOT/COLD PACKS MANUAL 75228 [facility] THERAPY 5 [facility] TQS 1/> INC INC REGIONS EACH 15 MINUTES PHYSICAL 93635 [facility] THERAPY 5 [facility] EVALUATIO INC INC N RADEX 25275 [facility] TRA SPINE 5 [place] LUMBOSACR ORTHOPAED AL 2/3 [facility] VIEWS THERAPEUT 48133 SP JOLLEY IC 5 [facility] TIC/DX INJECTION SUBQ/IM INJECTION J1885 SP YMAN 5 [facility] TROMETHAM INE PER 15 MG COLLECTIO 01910 SP SP N VENOUS 5 [facility] [place] [address] [facility] THYROID 5 [facility] STIMULATI [place] [address] [facility] FREE 5 [facility] THYROXINE INC INC COMPREHEN 77340 [facility] SIVE 5 [facility] METABOLIC INC INC PANEL BLOOD 35263 [facility] COUNT 5 [facility] COMPLETE INC INC AUTO&AUTO DIFRNTL WBC LIPID 87204 [facility] PANEL 5 [facility] INC INC DUP-SCAN 90269 SP SONWDEN XTR VEINS 5 [facility] INC INC UNILATERA L/LIMITED STUDY RADEX 27093 [facility] SPINE 5 [facility] LUMBOSACR INC INC AL MINIMUM 4 VIEWS RADEX 26162 [facility] TRA SPINE 5 [place] LUMBOSACR ORTHOPAED AL 2/3 [facility] VIEWS RADEX 22674 [facility] TRA SPINE 5 [place] LUMBOSACR ORTHOPAED AL 2/3 [facility] VIEWS OPHTH 18591 [facility] 5 GRE GRE XM&EVAL COMPRHNSV ESTAB PT 1/> VISUAL 00980 [facility] XM 5 GRE GRE UNI/BI W/INTERP EXTENDED EXAM ECG 09887 [facility] ROUTINE 5 [facility] ECG INC INC W/LEAST 12 LDS TRCG ONLY W/O I&R BASIC 50340 [facility] METABOLIC 5 [facility] PANEL INC INC CALCIUM TOTAL COLLECTIO 15027 [facility] N VENOUS 5 [facility] BLOOD INC INC VENIPUNCT URE MRI 96854 [facility] TRA SPINAL 5 [place] CANAL ORTHOPAED LUMBAR [facility] W/O CONTRAST MATERIAL ECG 83917 [facility] ROUTINE 5 [facility] ECG INC INC W/LEAST 12 LDS TRCG ONLY W/O I&R ECG 81868 [facility] ROUTINE 5 [facility] ECG INC INC W/LEAST 12 LDS TRCG ONLY W/O I&R URINLS 83636 A C FIELD AMB DIP 5 LILIANE SKAGGS STICK/TAB PSC [place] [address] [facility] 5 DIAGNOSTI DIAGNOSTI SPECIFIC CS CS ANTIGEN TOTAL RADEX 12710 [place] [facility] SP[facility] 5 [facility] THORACIC IMAGING 2 VIEWS ASS RADEX 13700 [place] [facility] SPINE 5 MEDICAL VALENTE LUMBOSACR IMAGING AL 2/3 [place] [address] [facility], SERRANO SURG 5 [facility] GROSS&VAN ROSCOPIC EXAM COLONOSCO 23559 [facility] PY 5 [facility] W/BIOPSY INC INC SINGLE/MU LTIPLE ANES 06714 [facility] 5 ANESTH SHE INTESTINE OF THE BLUE ENDOSCOPY DISTAL DUODENUM CV STRS 64067 [facility] TST 5 [facility] XERS&/OR INC INC RX CONT ECG TRCG ONLY ECHO 37962 SHAVONNE WHITTEN DEVANG [facility] R-T 5 MEDICAL 2D SERV W/WOM-MOD FOUNDATIO E COMPL N SPEC&COLR D CV STRS 02734 [facility] TST 5 CULAR MAT XERS&/OR CONSULTAN RX CONT TS O ECG I&R ONLY ECG 63283 [facility] ROUTINE [facility] ECG INC INC W/LEAST 12 LDS TRCG ONLY W/O I&R BLOOD 38807 A C FIELD AMB COUNT 5 LILIANE SKAGGS COMPLETE PSC AUTO&AUTO DIFRNTL WBC URINLS 58451 A C FIELD AMB DIP 5 LILIANE SKAGGS STICK/TAB PSC LET REAGNT NON-AUTO MICRSCPY INF AGENT 95210 [facility] DET [facility] NUCLEIC INC INC ACID CLOSTRIDI UM AMP PROBE BLOOD 14162 [facility] OCCULT 5 [facility] PEROXIDAS INC INC E ACTV QUAL FECES 1-3 SPEC IADNA NOS 02-05-201 59822 [facility] AMPLIFIED INC INC PROBE TQ EACH ORGANISM DELIVERY ASSOCIATE STDY 67156 [facility] UNATND [facility] W/HRT INC INC RATE/O2 SAT/RESP/ [place] [address] KAMARI KAMARI MAXILLOFA 4 MANAN MANAN CIAL W/O CONTRAST MATERIAL THERAPEUT 31296 FIELD AMB FIELD AMB IC 4 PROPHYLAC TIC/DX INJECTION SUBQ/IM INJECTION J1885 FIELD AMB FIELD AMB 4 KETOROLAC TROMETHAM INE PER 15 MG RADIOLOGI 78597 KAMARI KAMARI C EXAM 4 MANAN MANAN CHEST 2 VIEWS FRONTAL&L ATERAL DETERMINA 66408 [facility] REFRACTIV E STATE OPHTH 70803 [facility] 4 GRE GRE XM&EVAL COMPRE NEW PT 1/> VST CREATININ 62344 [facility] E BLOOD 4 [facility] INC INC INJECTION A9576 [facility] GADOTERID INC INC OL PROHANCE MULTIPACK PER ML MRI BRAIN 61874 [facility] BRAIN [facility] STEM W/O INC INC [place] [address] [facility] UREA [facility] NITROGEN INC INC QUANTITAT SIDDHARTH Encounters Encounter Start End Date Code Location Performer Type Date OFFICE 81158 [facility] MICHELLE OUTPATIEN 7 7 PHYSICIAN T VISIT S GROUP 25 MINUTES OFFICE 62355 [facility] OUTPATIEN 7 7 T VISIT 10 MINUT[facility] OFFICE 42185 [facility] 7 [facility] VIS[facility]UTES [facility] SP - 7 7 [facility] T OFFICE 93743 [facility] OUTPATIEN 7 7 PHYSICIAN T VISIT S GROUP 25 MINUTES [facility]OSP[facility] SP - 7 7 [facility] SP - 7 7 [facility] INC T OFFICE 64886 [facility] 7 T NEW 45 MINUTES [facility] SP - 7 7 [facility] T OFFICE 26822 [facility] OUTPATIEN 7 7 PHYSICIAN T [facility]ISIT S GROUP 40 MINUTES [facility]OSPITAL SP - 7 7 [facility] SP - 7 7 [facility] T OFFICE 63611 [facility] FINESSE CONSULTAT 7 7 PHYSICIAN ION S GROUP NEW/ESTAB PATIENT 40 MIN OFFICE 79883 [facility] MICHELLE OUTPATIEN 7 7 PHYSICIAN T VISIT S GROUP 15 MINUTES [facility]OSPITAL SP - 7 7 [facility] T OFFICE 32928 [facility] STONE OUTPATIEN 7 7 PHYSICIAN T VISIT S GROUP 25 MINUTES OFFICE 64642 [facility]HELLE OUTPATIEN 6 6 PHYSICIAN T [facility]ISIT S GROUP 40 MINUTES [facility]OSPITAL SP - 6 6 [facility]75 [facility] [facility] OUT[facility]IEN 6 6 PHYSICIAN EUG T VISIT S GROUP 25 MINUTES HOSP[facility] SP - 6 6 [facility] [place] 48347 [facility] OUTPATIEN 6 6 PHYSICIAN EUG T VISIT S GROUP 25 MINUTES OFFICE 19101 [facility] JIE OUTPATIEN 6 6 PHYSICIAN COOK T VISIT S GROUP 15 MINUTES HOSPITAL SP - 6 6 [facility] T EMERGENCY 90889 MIRIAM MAGANA 6 6 PHYSICIAN DEPARTMEN S, [facility] T VISIT HIGH/URGE NT SEVERITY EMERGENCY [id number] SP 6 6 [facility] DEPARTMEN INC T VISIT MODERATE SEVERITY HOSPITAL SP - 6 6 [facility] T OFFICE 21079 [facility] OUTPATIEN 6 6 PHYSICIAN EUG T VISIT S GROUP 15 MINUTES OFFICE 71247 [facility] OUTPATIEN 6 6 PHYSICIAN EUG T VISIT S GROUP 15 MINUTES HOSPITAL SP - 6 6 [facility] T OFFICE 52391 [facility] [place] OUTPATIEN 6 6 PHYSICIAN VAN T VISIT S GROUP 10 MINUTES HOSPITAL SP - 6 6 [facility] SP - 5 5 [facility] SP - 5 5 [facility] T OFFICE 53649 [facility] [place] [facility] [facility] 15 [facility] MINUTES [facility]OSP[facility] SP - 5 5 [facility] T OFFICE 97981 SP [facility] OUTPATIEN 5 5 [facility] T [facility] 15 MINUTES HOSPITAL SP - 5 5 [facility] T OFFICE 62714 [facility] [place] [facility] [facility] MINUTES OFFICE 21555 SP [facility] OUTPATIEN 5 5 [facility] 15 MINUTES HOSPITAL SP [facility] 5 5 [facility] INC [facility]OSPITAL SP - 5 5 [facility] INC T OFFICE 70098 SP [facility] OUTPATIEN 5 5 [facility] T VISIT HOSPITAL 15 MINUTES OFFICE 05672 [facility] [place] [facility] [facility] MIN[facility] OFFICE 40507 [facility] [place] [facility] [facility] MINUTES EMERGENCY 20546 SP 5 5 [facility] T VISIT LOW/MODER SEVERITY EMERGENCY 39382 MIRIAM Rashid 5 5 PHYSICIAN CHRISTINE S [facility] T VISIT MODERATE SEVERITY HOSPITAL SP - 5 5 [facility] T HOSPITAL SP - [address] [facility]PATIEN INC [facility] SP - 5 5 [facility] T OFFICE 58730 [facility] [place] 5 [place] VISIT [facility]THOPAED 15 [facility] MINUTES HOSPITAL SP - 5 5 [facility] OUTPATIEN INC T OFFICE 54016 [facility] 5 5 [place] ION ORTHOPAED NEW/ESTAB [facility] PATIENT 40 MIN HOSPITAL SP - 5 5 [facility] T OFFICE 43912 Gilberto MOLINA AMB OUTPATIEN 5 5 LILIANE SKAGGS T VISIT PSC 15 MINUTES EMERGENCY 89143 MIRIAM AGARWAL 5 5 PHYSICIAN JOYCE Jordan [facility] T VISIT HIGH/URGE NT SEVERITY OFFICE 63429 [facility] TOD OUTPATIEN 5 5 PHYSICIAN T VISIT S GROUP 15 MINUTES HOSPITAL SP - 5 5 [facility] OUT[facility] INC T OFFICE 54781 [facility] OUTPATIEN 5 5 PHYSICIAN EUG T VISIT S GROUP 15 MINUTES HOSPITAL SP - 5 5 [facility]PATI[facility] INC T HOSPITAL SP - 5 5 [facility]PAT[facility] INC T OFFICE 21292 [facility] FINESSE TOD CONSULTAT 5 5 PHYSICIAN ION S GROUP NEW/ESTAB PATIENT 60 MIN OFFICE 16136 Gilberto C FIELD AMB OUTPATIEN 5 5 LILIANE SKAGGS T VISIT PSC 15 MINUTES HOSPITAL SP - 5 5 [facility]PAT[facility] INC T HOSPITAL SP - 4 4 [facility] OUT[facility] INC T OFFICE 72190 [facility] CISNEROS OUTPATIEN 4 4 VAN VAN T VISIT 15 MINUTES HOSPITAL SP - 4 4 [facility] OUTPATIEN INC T OFFICE 06661 RONNELL MONGIARDO CONSULTAT 4 4 FRA FRA ION NEW/ESTAB PATIENT 40 MIN OFFICE 96989 FIELD AMB FIELD AMB OUTPATIEN 4 4 T VISIT 15 MINUTES EMERGENCY 02755 ALFARIS ALFARIS DEPT 4 4 [facility] VISIT HIGH SEVERITY& THREAT FUNCJ OFFICE 31330 [facility]B FIELD AMB OUTPATIEN 4 4 T VISIT 15 MINUTES EMERGENCY 42634 ARUN ESME ARUN ESME 4 4 DEPARTMEN T VISIT MODERATE SEVERITY OFFICE 38225 [facility] OUTPATIEN 4 4 PHYSICIAN T VISIT S GROUP 10 MINUTES OFFICE 31700 FIELD [facility]B [facility]ELD AMB OUTPATIEN 4 4 T VISIT 15 MINUTES HOSPITAL SP - 4 4 [facility] OUTPATIEN INC T OFFICE 45543 FIELD AMB FIELD AMB OUTPATIEN 4 4 T NEW 20 MINUTES OFFICE 36857 [facility] TORIBIO OUTPATIEN 4 4 T NEW 30 MINUTES
--- OUTSIDE RECORDS SUMMARY | 2017-03-17 11:14 | External Medical Summary Rpt | CCD ---
Demographics Preferred Language Sinhala Marital Status Unknown Druze Affiliation Unknown Race Unknown Ethnic Group Unknown Author Author RIO Address Unknown Phone Immunization No patient found.
--- OUTSIDE RECORDS SUMMARY | 2017-03-17 11:14 | External Medical Summary Rpt | CCD ---
Demographics Preferred Language Telugu Marital Status Unknown Jainism Affiliation Unknown Race Unknown Ethnic Group Unknown Author Author RIO Address Unknown Phone Immunization No patient found.
--- OUTSIDE RECORDS SUMMARY | 2017-03-17 11:14 | External Medical Summary Rpt ---
[...] : 959 Age: 50 Sex: M Acct: [id number] Loc: M LAB Exam Date: Status: REG REF Radiolo gy No: Unit No: [id number] XAM# TYPE/EX AM RESULT0 [id number] RAD/KRISTEN ST LAT/PA Examina tion: PA [...] Transcr iptioni st: n/a Printed Date/Ti me: (5120) PAGE 1 Signed Report [facility] Observa Value [...]
--- OUTSIDE RECORDS SUMMARY | 2017-03-17 11:14 | External Medical Summary Rpt ---
[...] : 959 Age: 50 Sex: M Acct: [id number] Loc: M LAB Exam Date: Status: REG REF Radiolo gy No: Unit No: [id number] XAM# TYPE/EX AM RESULT0 [id number] RAD/KRISTEN ST LAT/PA Examina tion: PA [...] Transcr iptioni st: n/a Printed Date/Ti me: (3532) PAGE 1 Signed Report [facility] Observa Value [...]
[2017-03-17] MEDS ORDERED: FLONASE 50 MCG16 GM (11:30)
[2017-03-17] MEDS ORDERED: PROVENTIL0.09 MG/A1 IH (11:30)
[2017-03-17] MEDS ORDERED: PREDNISONE 20MG20 MG PO (11:30)
[2017-03-17 11:38] VITALS: BP 144/71
== END 2017-03-17 11:39 | disposition home or self-care (01) ==
LOC: UTC 10:53
DX: R05 Cough (principal); J30.2 Other seasonal allergic rhinitis; Z72.0 Tobacco use; Z79.82 Long term (current) use of aspirin

== ENCOUNTER → 2017-05-06 | Outpatient (CLI) | payer MEDICARE, MEDICAID ==
[~2017-05-06] MED LIST changes: +PROVENTIL0.09 MG/A1 IH
[2017-05-06 10:32] LABS: BILIRUBIN, INDIRECT 0.91 mg/dL (0-0.9); BUN 19 mg/dL (7-18)
[2017-05-06 10:34] LABS: GFR (ESTIMATED) 87 ML/MIN (>60)
== END ==
LOC: LAB 08:31
PROVIDERS: Internal Medicine
DX: I25.10 Atherosclerotic heart disease of native coronary artery without angina pectoris (principal); I10 Essential (primary) hypertension; R25.2 Cramp and spasm